=== PATIENT | male | born 1955 | race Caucasian/White ===

== ENCOUNTER 2017-03-25 20:34 | Emergency (ER) | payer MEDICARE ==
[2017-03-25] MEDS ORDERED: MORPHINE SULFATE 4 MG INJ IM ONE (20:52)
[2017-03-25] MEDS ORDERED: MORPHINE SULFATE 4 MG INJ ONE (20:55)
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
[2017-03-25 22:00] VITALS: BP 120/58; PULSE 100; O2SAT 99
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
== END 2017-03-25 22:26 | disposition home or self-care (01) ==
LOC: ED 20:34
DX: S00.03XA Contusion of scalp, initial encounter (principal); Y00.XXXA Assault by blunt object, initial encounter; W03.XXXA Other fall on same level due to collision with another person, initial encounter; R51 Headache; I10 Essential (primary) hypertension; E78.00 Pure hypercholesterolemia, unspecified
CPT/HCPCS: 70450; 71020; 96372; 99284; J2270

== ENCOUNTER 2017-03-26 12:07 | Observation (INO) | payer MEDICARE ==
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
[2017-03-26] MEDS ORDERED: VALIUM 10 MG/2 ML SYRINGE IV ONE (12:39)
[2017-03-26] MEDS ORDERED: VALIUM 10 MG/2 ML SYRINGE ONE (12:57)
[2017-03-26 13:09] LABS: BASOPHIL % 0.2 % (0.0-0.4); Eosinophil % 0.3 % (0.00-5.0); Granulocytes % 75.9 % (36.0-66.0); Lymphocytes % 15.8 % (24.0-44.0); Mean Cell Volume 86.6 fl (78-100); Mean Corpuscular Hemoglobin 28.4 pg (26-32); Mean Platelet Volume 10.1 fl (6-9.5); Monocytes % 7.8 % (0.0-12.0); Platelet Count 262 K/mm3 (150-450); Red Blood Count 4.26 M/mm3 (4.1-5.6); Red Cell Distribution Width 14.4 % (11.5-14.0); White Blood Count 8.9 K/mm3 (4.0-10.5)
[2017-03-26 13:14] LABS: COMPLETE URINE MICROSCOPIC? YES; Collection Type CATH
[2017-03-26 13:24] LABS: Bacteria RARE /HPF (NEGATIVE)
[2017-03-26 13:29] LABS: ANION GAP 12.2 MEQ/L (5-15); BLOOD UREA NITROGEN 18 mg/dL (9-20); CHLORIDE 101 mEq/L (98-107); Carbon Dioxide 29.5 mEq/L (21-32); Glucose 121 MG/DL (70-110); Potassium 3.3 mEq/L (3.5-5.1); SODIUM 139 mEq/L (136-145)
--- NOTE | 2017-03-26 14:23 | XRAY ---
Indication: Amnesia. Multiple contiguous axial images obtained through the head without contrast. Comparison: One day earlier Several images are degraded by motion artifact even with repeat CT. Again no acute intracranial hemorrhage, abnormal extra-axial fluid question, or mass effect. Fourth ventricle is midline without hydrocephalus. Beach-white matter differentiation preserved. Bony calvarium grossly intact. Visualized paranasal sinuses and mastoid air cells are pneumatized and clear. Impression: Limited exam due to motion artifact. No gross new or acute intracranial abnormalities. CTDI 61.17
[2017-03-26] MEDS ORDERED: VALIUM 10 MG/2 ML SYRINGE IV PRN ×2 (14:53→15:42)
[2017-03-26] MEDS ORDERED: Zofran 4 MG/2 ML VIAL IV PRN (15:26)
[2017-03-26] MEDS: MS CONTIN 30 MG PO SCH ×2 (16:25→21:10)
[2017-03-26] MEDS: LIORESAL 10 MG PO SCH ×2 (16:26→21:10)
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
[2017-03-26] MEDS: Requip 0.5 MG PO SCH (21:10)
[2017-03-26] MEDS: Ativan 2 MG/1 ML VIAL IV PRN (21:11)
[2017-03-26] MEDS: ZOCOR 20MG PO SCH (21:17)
[2017-03-26] MEDS ORDERED: NON-FORMULARY ITEM (Baclofen [Baclofen] 20 MG) PO SCH (22:00)
[2017-03-26] MEDS ORDERED: Ativan 2 MG/1 ML VIAL IV ONE (22:16)
[2017-03-27] MEDS: Ativan 2 MG/1 ML VIAL IV PRN (02:50)
[2017-03-27] MEDS: Sodium Chloride 0.9% W/ 20 mEq KCl/LITER 1,000 ML IV SCH ×2 (02:50→17:31)
[2017-03-27 06:19] LABS: BASOPHIL % 0.5 % (0.0-0.4); Lymphocytes % 23.7 % (24.0-44.0); Mean Cell Volume 87.2 fl (78-100); Mean Platelet Volume 10.7 fl (6-9.5); Monocytes % 10.8 % (0.0-12.0); Platelet Count 242 K/mm3 (150-450); Red Blood Count 4.06 M/mm3 (4.1-5.6); Red Cell Distribution Width 14.6 % (11.5-14.0)
[2017-03-27 06:39] LABS: Mean Corpuscular Hemoglobin 28.5 pg (26-32)
[2017-03-27 06:44] LABS: BLOOD UREA NITROGEN 13 mg/dL (9-20); CHLORIDE 104 mEq/L (98-107); Carbon Dioxide 29.6 mEq/L (21-32); Glucose 115 MG/DL (70-110); SODIUM 140 mEq/L (136-145)
[2017-03-27 06:47] LABS: Potassium 2.9 mEq/L (3.5-5.1)
[2017-03-27] MEDS: POTASSIUM CHLORIDE 20 mEq IN WATER 100ML 100 ML IV SCH ×2 (07:24→09:44)
[2017-03-27] MEDS: hydroDIURIL 25 MG PO SCH (09:25)
[2017-03-27] MEDS: THERAGRAN MULTIVITAMIN PO SCH (09:25)
[2017-03-27] MEDS: Protonix 40MG Tablet PO SCH (09:26)
[2017-03-27] MEDS: MS CONTIN 30 MG PO SCH ×3 (09:26→22:32)
[2017-03-27] MEDS: TENORMIN 50 MG PO SCH (09:26)
[2017-03-27] MEDS: LIORESAL 10 MG PO SCH ×3 (09:27→22:32)
[2017-03-27] MEDS: UNIVASC PO SCH (09:28)
[2017-03-27] MEDS ORDERED: NON-FORMULARY ITEM (Omeprazole 20 Mg [Prilosec 20 Mg] 20 MG) PO SCH (10:00)
[2017-03-27] MEDS ORDERED: [UNRECOGNIZED DRUG - OTHER] PO SCH (10:00)
[2017-03-27] MEDS ORDERED: MV MINERALS PO SCH (10:00)
[2017-03-27] MEDS ORDERED: NON-FORMULARY ITEM (Atenolol [Atenolol] 25 MG) PO SCH (10:00)
[2017-03-27] MEDS ORDERED: NON-FORMULARY ITEM (Simvastatin 40 Mg [Zocor 40 Mg] 40 MG) PO SCH (10:00)
[2017-03-27] MEDS ORDERED: LYCOPENE PO SCH (10:00)
[2017-03-27] MEDS ORDERED: GINKGO PO SCH (10:00)
[2017-03-27] MEDS: Klor Con 10 MEQ PO SCH (12:25)
[2017-03-27] MEDS: Lasix 40 MG PO SCH (12:26)
[2017-03-27] MEDS: ZOLOFT 50 MG TABLET PO SCH (12:26)
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
[2017-03-27 22:20] VITALS: O2SAT 99
[2017-03-27] MEDS: Requip 0.5 MG PO SCH (22:31)
[2017-03-27] MEDS: ZOCOR 20MG PO SCH (22:33)
[2017-03-28] MEDS: Sodium Chloride 0.9% W/ 20 mEq KCl/LITER 1,000 ML IV SCH (02:34)
[2017-03-28] MEDS: TENORMIN 50 MG PO SCH (08:08)
[2017-03-28] MEDS: hydroDIURIL 25 MG PO SCH (08:09)
[2017-03-28] MEDS: ZOLOFT 50 MG TABLET PO SCH (08:09)
[2017-03-28] MEDS: Lasix 40 MG PO SCH (08:09)
[2017-03-28] MEDS: Klor Con 10 MEQ PO SCH (08:09)
[2017-03-28 08:10] VITALS: PULSE 78
[2017-03-28] MEDS: Protonix 40MG Tablet PO SCH (08:10)
[2017-03-28] MEDS: THERAGRAN MULTIVITAMIN PO SCH (08:10)
[2017-03-28] MEDS: LIORESAL 10 MG PO SCH (08:10)
[2017-03-28] MEDS: MS CONTIN 30 MG PO SCH (08:13)
[2017-03-28] MEDS: UNIVASC PO SCH (08:13)
[2017-03-28 10:03] VITALS: BP 130/76
== END 2017-03-28 08:20 | disposition home or self-care (01) ==
LOC: ED 12:07 → ICU 14:45
PROVIDERS: ADMIT Family Medicine; ATTEND Family Medicine
DX: R41.82 Altered mental status, unspecified (principal); F15.10 Other stimulant abuse, uncomplicated; M54.9 Dorsalgia, unspecified; F19.10 Other psychoactive substance abuse, uncomplicated; I10 Essential (primary) hypertension; J44.9 Chronic obstructive pulmonary disease, unspecified; E87.6 Hypokalemia; G47.30 Sleep apnea, unspecified; K21.9 Gastro-esophageal reflux disease without esophagitis; F31.9 Bipolar disorder, unspecified; Z86.19 Personal history of other infectious and parasitic diseases; Z79.899 Other long term (current) drug therapy; Z79.891 Long term (current) use of opiate analgesic; F11.20 Opioid dependence, uncomplicated
CPT/HCPCS: 82962; 93268; 96374; 36591; 99285; 36000; 81000; 36415 ×2; 84132; 80307 ×2; 80346; 80361; 80324; 80373; 80354; 85025 ×2; 80048 ×2; 70450; G0483; 90791; G0378; J1642; J2060; J3360; J3480; Q3014; 80349; A9270-GY

== ENCOUNTER 2017-04-25 18:05 | Emergency (ER) | payer MEDICARE ==
--- NOTE | 2017-04-25 19:30 | ERPHSYRPT ---
- History of Present Illness Time Seen by Provider: 04/25/17 19:23 Patient Subjective Stated Complaint: increase in chronic back pain today. has had five back surgeries and now has a screw loose in his back. sees doctor at [facility] in [place] and is taking morphine 100 mg tid and states that is not helping. is supposed to have pain pump put in after may 13 after seeing psychiatrist. he brought his in here last night and he thinks he hurt his back today lifting on her. Triage Nursing Assessment: ambulated slowly to room seven. skin w/d, color normal, resp easy. walking with a cane. has back brace on. a/o times three. Physician History: The patient is a 61-year-old male with chronic back pain status post 5 back surgeries, now has an increase in left-sided low back pain for the last 5 hours. I saw his last night in the ER and he accompanied her. He states that he thinks when he was helping her move at home that it caused a flareup in his back pain. He takes 100 mg of morphine 3 times a day but this is not helping. He sees a pain clinic doctor at [facility] in [place] and is scheduled to have a pain pump placed on May 13. He denies any problems with urination or defecation. He walks with a cane at all times and has a back brace on. Timing/Duration: hour(s) (5) Method of Injury: unknown Quality: aching Back Pain Location: paraspinous muscles (left) Back Pain Radiation: upper legs Severity of Pain-Max: moderate Severity of Pain-Current: moderate Modifying Factors: Improves With: pain medication Associated Symptoms: denies symptoms Previous symptoms: same symptoms as today Allergies/Adverse Reactions: Penicillins Allergy (Intermediate, Verified 03/26/17 12:19) Swelling aspirin Allergy (Verified 03/26/17 12:19) Hives cephalexin monohydrate [From Keflex] Allergy (Verified 03/26/17 12:19) Swelling gabapentin [From Neurontin] Allergy (Verified 03/26/17 12:19) Hives nalbuphine HCl [From Nubain] Allergy (Verified 03/26/17 12:19) Swelling states swell, increased blood pressure HALOTHANE Allergy (Intermediate, Uncoded 03/26/17 12:19) Hives varified on 04/17/15 Pt states "gives me medically induced hepatitis B" Home Medications: Ropinirole HCl 0.5 mg [Requip 0.5 MG] 0.5 mg PO HS 02/03/15 [History] Morphine Sulfate [Morphine Sulfate ER] 100 mg PO TID 03/30/15 [History] Mv,Minerals/FA/Lycopene/Ginkgo [One Daily For Men 50+ Adv Tab] 1 tab PO DAILY [History] Atenolol 25 mg PO DAILY 05/04/16 [History] Hydrochlorothiazide 25 mg [hydroDIURIL 25 MG] 25 mg PO DAILY 05/04/16 [ History] Moexipril HCl 15 mg [Univasc 15 MG] 7.5 mg PO DAILY 05/04/16 [History] Omeprazole 20 MG [Prilosec 20 mg] 20 mg PO DAILY 05/04/16 [History] Simvastatin 40 mg [Zocor 40 mg] 40 mg PO DAILY 05/04/16 [History] Baclofen 20 mg PO TID 07/06/16 [History] Furosemide 40 mg [Lasix 40 MG] 40 mg PO DAILY 03/27/17 [History] Potassium Chloride 10 Meq Tab* [Klor Con 10 MEQ] 10 meq PO DAILY 03/27/17 [ History] Sertraline HCl 50 mg [Zoloft 50 mg Tablet] 100 mg PO DAILY 03/27/17 [History ] Hx Tetanus, Diphtheria Vaccination/Date Given: Yes Hx Influenza Vaccination/Date Given: Yes Hx Pneumococcal Vaccination/Date Given: Yes Immunizations Up to Date: Yes - Review of Systems Constitutional: No Fever, No Chills Eyes: No Symptoms Ears, Nose, & Throat: No Symptoms Respiratory: No Cough, No Dyspnea Cardiac: No Chest Pain, No Edema, No Syncope Abdominal/Gastrointestinal: No Abdominal Pain, No Nausea, No Vomiting, No Diarrhea Genitourinary Symptoms: No Dysuria Musculoskeletal: Back Pain, No Neck Pain Skin: No Rash Neurological: No Dizziness, No Focal Weakness, No Sensory Changes Psychological: No Symptoms Endocrine: No Symptoms Hematologic/Lymphatic: No Symptoms Immunological/Allergic: No Symptoms All Other Systems: Reviewed and Negative - Past Medical History Pertinent Past Medical History: Yes Neurological History: No Pertinent History ENT History: No Pertinent History Cardiac History: High Cholesterol, Hypertension Respiratory History: COPD, Sleep Apnea Endocrine Medical History: No Pertinent History Musculoskeletal History: Arthritis, Degenerative Disk Disease, Osteoarthritis GI Medical History: GERD History: No Pertinent History Psycho-Social History: Bipolar, Depression Male Reproductive Disorders: No Pertinent History Other Medical History: See history. 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 cvl port placement - Social History Smoking Status: Never smoker Exposure to second hand smoke: Yes Alcohol Use: None Drug Use: none Patient Lives Alone: No Significant Family History: no pertinent family hx - Nursing Vital Signs Nursing Vital Signs: Initial Vital Signs Temperature 99 F Temperature Source Oral Pulse Rate 80 Respiratory Rate 20 Blood Pressure [Right Arm] 153/73 Pain Intensity 9 - Physical Exam General Appearance: mild distress Eye Exam: PERRL/EOMI, eyes nml inspection Ears, Nose, Throat Exam: normal ENT inspection Neck Exam: normal inspection, non-tender, supple, full range of motion, No meningismus, No midline tenderness Respiratory Exam: normal breath sounds, lungs clear, No respiratory distress Cardiovascular Exam: regular rate/rhythm Gastrointestinal Exam: soft, No tenderness, No mass Rectal Exam: not done Back Exam: muscle spasm (lower left paraspinous) Extremity Exam: normal inspection, normal range of motion, No calf tenderness, No pedal edema Neurologic Exam: alert, oriented x 3, cooperative, 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, normal mood/affect, nml station & gait, sensation nml, No motor deficits Skin Exam: normal color, warm, dry, No rash SpO2 Interpretation: normal SpO2: 95 Oxygen Delivery: Room Air - Radiology Exams L-Spine X-ray Interpretation: Interpreted by me, Negative (DJD, intract hardware, no acute abnormality.) Ordered Tests: Active Orders 24 hr Category Date Time Status LUMBAR COMPLETE (MIN 4 VIEWS) Stat Exams 04/25/17 20:07 Taken - Progress Progress: unchanged Counseled pt/family regarding: rad results - Departure Time of Disposition: 20:39 Departure Disposition: Home Clinical Impression: Low back strain Condition: Stable Critical Care Time: No Additional Instructions: You have strange her low back on the left side. This is muscular in nature. Your L-spine x-ray was unremarkable with your hardware intact. Take Flexeril 10 mg every 8 hours as needed for pain. Follow-up on Friday if the condition does not improve significantly. Prescriptions: Cyclobenzaprine HCl [Flexeril] 10 mg PO Q8H PRN PRN #10 tablet PRN Reason: Pain
[2017-04-25 20:38] VITALS: BP 153/73; PULSE 80
[2017-04-25 20:42] VITALS: O2SAT 95
[2017-04-25] MEDS ORDERED: Cyclobenzaprine 10 MG ONE (20:43)
[2017-04-25] MEDS ORDERED: Cyclobenzaprine 10 MG PO ONE (20:44)
--- NOTE | 2017-04-25 21:48 | XRAY ---
Indication: Chronic back pain. 5 views of the lumbar spine unchanged compared to CT lumbar spine March 29, 2016. There remains osteopenia, L3-L5 fusion with intact L3-L4 spinal hardware, and multilevel degenerative spondylosis. No new/acute findings.
== END 2017-04-25 20:50 | disposition home or self-care (01) ==
LOC: ED 18:05
DX: S39.012A Strain of muscle, fascia and tendon of lower back, initial encounter (principal); Z79.891 Long term (current) use of opiate analgesic; I10 Essential (primary) hypertension; E78.00 Pure hypercholesterolemia, unspecified; J44.9 Chronic obstructive pulmonary disease, unspecified
CPT/HCPCS: 72110; 99282; A9270-GY

== ENCOUNTER 2017-05-17 01:23 | Emergency (ER) | payer MEDICARE ==
[2017-05-17] MEDS ORDERED: TORAdol 30 mg Injection IV ONE (01:53)
[2017-05-17] MEDS ORDERED: Hydromorphone 1 mg/ml Ampule IV ONE (01:53)
[2017-05-17] MEDS ORDERED: TORAdol 30 mg Injection ONE (01:57)
[2017-05-17] MEDS ORDERED: Hydromorphone 1 mg/ml Ampule ONE (01:58)
--- NOTE | 2017-05-17 01:58 | ERPHSYRPT ---
- History of Present Illness Time Seen by Provider: 05/17/17 01:54 Exam Limitations: no limitations Patient Subjective Stated Complaint: CRONIC BACK PAIN, PAIN WORSE THAN NORMAL, NO TRAUMA Triage Nursing Assessment: AOX3, VSS, NO FEVER, ABLE TO AMBULATE FROM WR TO ROOM 6 IN THE ED, PATIENT WITH HX OF CHRONIC BACK PAIN, SEEN HERE SEVERAL WEEKS AGO AFTER TRIPPING OVER BLIND DOG AT HOME. Physician History: 61 y/o male with history of chronic back pain currently on morphine 100mg Q 12 hrs comes to the ER after he tripped over his blind dog and landed on his right lower back. Pt describes the pain as sharp, constant, 10/10, worse with movement and not relieved by his pain meds. Pt denies any leg weakness or bowel and urinary incontinence. Timing/Duration: yesterday Method of Injury: fall Back Pain Location: lumbar spine Severity of Pain-Max: severe Severity of Pain-Current: severe Modifying Factors: Improves With: nothing Allergies/Adverse Reactions: Penicillins Allergy (Intermediate, Verified 03/26/17 12:19) Swelling aspirin Allergy (Verified 03/26/17 12:19) Hives cephalexin monohydrate [From Keflex] Allergy (Verified 03/26/17 12:19) Swelling gabapentin [From Neurontin] Allergy (Verified 03/26/17 12:19) Hives nalbuphine HCl [From Nubain] Allergy (Verified 03/26/17 12:19) Swelling states swell, increased blood pressure HALOTHANE Allergy (Intermediate, Uncoded 03/26/17 12:19) Hives varified on 04/17/15 Pt states "gives me medically induced hepatitis B" Home Medications: Ropinirole HCl 0.5 mg [Requip 0.5 MG] 0.5 mg PO HS 02/03/15 [History] Morphine Sulfate [Morphine Sulfate ER] 100 mg PO TID 03/30/15 [History] Mv,Minerals/FA/Lycopene/Ginkgo [One Daily For Men 50+ Adv Tab] 1 tab PO DAILY [History] Atenolol 25 mg PO DAILY 05/04/16 [History] Hydrochlorothiazide 25 mg [hydroDIURIL 25 MG] 25 mg PO DAILY 05/04/16 [ History] Moexipril HCl 15 mg [Univasc 15 MG] 7.5 mg PO DAILY 05/04/16 [History] Omeprazole 20 MG [Prilosec 20 mg] 20 mg PO DAILY 05/04/16 [History] Simvastatin 40 mg [Zocor 40 mg] 40 mg PO DAILY 05/04/16 [History] Baclofen 20 mg PO TID 07/06/16 [History] Furosemide 40 mg [Lasix 40 MG] 40 mg PO DAILY 03/27/17 [History] Potassium Chloride 10 Meq Tab* [Klor Con 10 MEQ] 10 meq PO DAILY 03/27/17 [ History] Sertraline HCl 50 mg [Zoloft 50 mg Tablet] 100 mg PO DAILY 03/27/17 [History ] Hx Tetanus, Diphtheria Vaccination/Date Given: Yes Hx Influenza Vaccination/Date Given: Yes Hx Pneumococcal Vaccination/Date Given: Yes - Review of Systems Constitutional: No Fever, No Chills Eyes: No Symptoms Ears, Nose, & Throat: No Symptoms Respiratory: No Cough, No Dyspnea Cardiac: No Chest Pain, No Edema, No Syncope Abdominal/Gastrointestinal: No Abdominal Pain, No Nausea, No Vomiting, No Diarrhea Genitourinary Symptoms: No Dysuria Musculoskeletal: Back Pain, No Neck Pain Skin: No Rash Neurological: No Dizziness, No Focal Weakness, No Sensory Changes Psychological: No Symptoms Endocrine: No Symptoms All Other Systems: Reviewed and Negative - Past Medical History Pertinent Past Medical History: Yes Neurological History: No Pertinent History ENT History: No Pertinent History Cardiac History: High Cholesterol, Hypertension Respiratory History: COPD, Sleep Apnea Endocrine Medical History: No Pertinent History Musculoskeletal History: Arthritis, Degenerative Disk Disease, Osteoarthritis GI Medical History: GERD History: No Pertinent History Psycho-Social History: Bipolar, Depression Male Reproductive Disorders: No Pertinent History Other Medical History: See history. 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 cvl port placement - Social History Smoking Status: Former smoker Exposure to second hand smoke: Yes Alcohol Use: None Drug Use: none Patient Lives Alone: No (FAMILY) Significant Family History: no pertinent family hx - Nursing Vital Signs Nursing Vital Signs: Initial Vital Signs Temperature 98.2 F Temperature Source Oral Pulse Rate 89 Respiratory Rate 12 Blood Pressure [Right Arm] 170/85 Pain Intensity 8 - Physical Exam General Appearance: mild distress, alert, anxiety Eye Exam: PERRL/EOMI, eyes nml inspection Neck Exam: normal inspection, non-tender, supple, full range of motion, No meningismus, No midline tenderness Respiratory Exam: normal breath sounds, lungs clear, No respiratory distress Cardiovascular Exam: regular rate/rhythm, normal heart sounds Gastrointestinal Exam: soft, No tenderness, No mass Back Exam: normal range of motion, muscle spasm, point tenderness Extremity Exam: normal inspection, normal range of motion, No calf tenderness, No pedal edema Neurologic Exam: alert, oriented x 3, cooperative, 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 I have advised the patient to F/U with his PCP fro any additional pain meds. - Departure Time of Disposition: 01:57 Departure Disposition: Home Clinical Impression: Back pain Qualifiers: Back pain location: low back pain Chronicity: acute Back pain laterality: bilateral Sciatica presence: without sciatica Qualified Code(s): M54.5 - Low back pain Condition: Stable Critical Care Time: No Instructions: Low Back Pain Additional Instructions: Follow up with your primary care doctor for any additional management for back pain.
[2017-05-17 02:29] VITALS: BP 150/69; PULSE 90; O2SAT 98
== END 2017-05-17 02:25 | disposition home or self-care (01) ==
LOC: ED 01:23
DX: M54.5 Low back pain (principal); Z79.891 Long term (current) use of opiate analgesic; Z79.899 Other long term (current) drug therapy; W01.0XXA Fall on same level from slipping, tripping and stumbling without subsequent striking against object, initial encounter
CPT/HCPCS: 36000; 96374; 96375; 99283; 99284; J1170; J1642; J1885

== ENCOUNTER 2017-06-23 13:09 | Emergency (ER) | payer MEDICARE ==
[2017-06-23 13:17] VITALS: O2SAT 98
[2017-06-23] MEDS ORDERED: XYLOCAINE 1% HCL 20 ML MDV IJ ONE (13:20)
[2017-06-23] MEDS ORDERED: XYLOCAINE 1% HCL 20 ML MDV ONE (13:23)
--- NOTE | 2017-06-23 13:28 | ERPHSYRPT ---
- History of Present Illness Time Seen by Provider: 06/23/17 13:20 Source: patient Patient Subjective Stated Complaint: "I was stung by a yellow jacket last friday and this morning the area really blew up red and has white spots on it.". Dr. madison Triage Nursing Assessment: Pt alert and oriented X 3, skin pwd pt has abscess noted to left forearm 11.5 cm X 9 CM warm to touch Physician History: CC: left forearm swelling Hx: 61 y/o patient of Dr Garnica was stung last week by a yellow jacket on left forearm. The area has worsened in redness, pain, fluctuance, and appears to now be abscess. Last tetanus vaccine 2 years ago. No fever or chills. No N/T/W. He drove self here. He takes pain medication thru Dr Bran and is scheduled for procedures next week. Pain in arm moderately severe. Severity of Pain-Max: moderate Severity of Pain-Current: moderate Extremities Pain Location: forearm: left Allergies/Adverse Reactions: Penicillins Allergy (Intermediate, Verified 03/26/17 12:19) Swelling aspirin Allergy (Verified 03/26/17 12:19) Hives cephalexin monohydrate [From Keflex] Allergy (Verified 03/26/17 12:19) Swelling gabapentin [From Neurontin] Allergy (Verified 03/26/17 12:19) Hives nalbuphine HCl [From Nubain] Allergy (Verified 06/23/17 13:18) Swelling states swell, increased blood pressure HALOTHANE Allergy (Intermediate, Uncoded 03/26/17 12:19) Hives varified on 04/17/15 Pt states "gives me medically induced hepatitis B" Home Medications: Ropinirole HCl 0.5 mg [Requip 0.5 MG] 0.5 mg PO HS 02/03/15 [History] Morphine Sulfate [Morphine Sulfate ER] 100 mg PO TID 03/30/15 [History] Atenolol 25 mg PO DAILY 05/04/16 [History] Hydrochlorothiazide 25 mg [hydroDIURIL 25 MG] 25 mg PO DAILY 05/04/16 [ History] Moexipril HCl 15 mg [Univasc 15 MG] 7.5 mg PO DAILY 05/04/16 [History] Omeprazole 20 MG [Prilosec 20 mg] 20 mg PO DAILY 05/04/16 [History] Simvastatin 40 mg [Zocor 40 mg] 40 mg PO DAILY 05/04/16 [History] Baclofen 20 mg PO TID 07/06/16 [History] Furosemide 40 mg [Lasix 40 MG] 40 mg PO DAILY 03/27/17 [History] Potassium Chloride 10 Meq Tab* [Klor Con 10 MEQ] 10 meq PO DAILY 03/27/17 [ History] Sertraline HCl 50 mg [Zoloft 50 mg Tablet] 100 mg PO DAILY 03/27/17 [History ] Hx Tetanus, Diphtheria Vaccination/Date Given: Yes Hx Influenza Vaccination/Date Given: Yes Hx Pneumococcal Vaccination/Date Given: Yes Immunizations Up to Date: Yes - Review of Systems Constitutional: No Fever, No Chills Respiratory: No Dyspnea Skin: Skin Lesions (left forearm infection) Neurological: No Focal Weakness, No Headache, No Parasthesia - Past Medical History Pertinent Past Medical History: Yes Neurological History: No Pertinent History ENT History: No Pertinent History Cardiac History: High Cholesterol, Hypertension Respiratory History: COPD, Sleep Apnea Endocrine Medical History: No Pertinent History Musculoskeletal History: Arthritis, Degenerative Disk Disease, Osteoarthritis GI Medical History: GERD History: No Pertinent History Psycho-Social History: Bipolar, Depression Male Reproductive Disorders: No Pertinent History Other Medical History: See history. 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 cvl port placement - Social History Smoking Status: Never smoker Exposure to second hand smoke: Yes Alcohol Use: None Drug Use: none Patient Lives Alone: No Significant Family History: no pertinent family hx - Nursing Vital Signs Nursing Vital Signs: Initial Vital Signs Temperature 97.8 F 06/23/17 13:10 Pulse Rate 112 H 06/23/17 13:10 Respiratory Rate 18 06/23/17 13:10 Blood Pressure 111/76 06/23/17 13:10 O2 Sat by Pulse Oximetry 98 06/23/17 13:10 Pain Scale Pain Intensity 5 - Physical Exam General Appearance: alert Eyes, Ears, Nose, Throat Exam: moist mucous membranes Neck Exam: supple Cardiovascular/Respiratory Exam: regular rate/rhythm Mental Status Exam: alert, oriented x 3, cooperative Skin Exam: warm, dry, other (pointing abscess left forearm. Distal hand neurovascular intact. The abscess is red, fluctuant, tender.) SpO2: 98 Oxygen Delivery: Room Air Procedures - Incision and Drainage Site: left forearm Anesthesia: 1% Lidocaine cc's of anesthesia: 5 Blade Size: scalpel I & D Procedure: betadine prep, culture obtained Results: large amount pus Progress: Tolerated well. - Course Nursing assessment & vital signs reviewed: Yes Ordered Tests: Active Orders 24 hr Category Date Time Status Wound Care STAT Care 06/23/17 13:20 Active CULTURE,WOUND Stat Lab 06/23/17 13:21 Ordered Medication Summary Discontinued Medications Generic Name Dose Route Start Last Admin Trade Name Mg PRN Reason Stop Dose Admin Lidocaine HCl 5 ml 06/23/17 13:20 06/23/17 13:25 Xylocaine 1% Hcl 20 Ml Mdv IJ 06/23/17 13:21 5 ml STAT ONE Administration Lidocaine HCl Confirm 06/23/17 13:23 Xylocaine 1% Hcl 20 Ml Mdv Administered 06/23/17 13:24 Dose 5 ml .ROUTE .STK-MED ONE - Progress Progress Note: 06/23/17 13:25 Advised wound I&D and culture. Will give Rx cleocin. Advised he call his pain specialist and let them know he has an infection as it may be prudent to postpone any elective procedures. He understands I&D and consents to proceed. Counseled pt/family regarding: diagnosis, need for follow-up - Departure Time of Disposition: 13:46 Departure Disposition: Home Clinical Impression: Abscess of left forearm Condition: Fair Critical Care Time: No Referrals: HUNG GARNICA MD [ACTIVE STAFF] - Instructions: Methicillin-Resistant Staph Infection (MRSA), Incision and Drainage of a Skin Abscess Additional Instructions: Warm compress 4 times a day. Keep wound clean. Rx cleocin. Call Dr Bran regarding infection notification. Follow up with Dr Garnica this week . Prescriptions: Clindamycin HCl 1 cap PO QID #40 capsule
[2017-06-23 14:00] VITALS: BP 118/65; PULSE 90
== END 2017-06-23 14:00 | disposition home or self-care (01) ==
LOC: ED 13:09
PROC: 0H9EXZZ Drainage of Left Lower Arm Skin, External Approach (ICD-10-PCS; principal; 2017-06-23)
DX: L02.414 Cutaneous abscess of left upper limb (principal)
CPT/HCPCS: 10060; 87070; 99283

== ENCOUNTER 2017-06-27 02:25 | Emergency (ER) | payer MEDICARE ==
[2017-06-27 02:33] VITALS: BP 146/84; O2SAT 98
[2017-06-27] MEDS ORDERED: TORAdol 30 mg Injection IM ONE (02:54)
[2017-06-27] MEDS ORDERED: BENADRYL 25 MG CAPSULE PO ONE (02:54)
[2017-06-27] MEDS ORDERED: Cyclobenzaprine 10 MG PO ONE (02:55)
[2017-06-27] MEDS ORDERED: TORAdol 30 mg Injection ONE (02:57)
[2017-06-27] MEDS ORDERED: Cyclobenzaprine 10 MG ONE (02:57)
[2017-06-27] MEDS ORDERED: BENADRYL 25 MG CAPSULE ONE (02:58)
--- NOTE | 2017-06-27 03:01 | ERPHSYRPT ---
- History of Present Illness Time Seen by Provider: 06/27/17 02:55 Source: patient Exam Limitations: no limitations Patient Subjective Stated Complaint: PT c/o pain from the lower thighs down to yung on both legs. pt states two days ago he was chasing his dog and bend over pick the dog pt tripped, fell down, and rolled twice. Triage Nursing Assessment: Pt walked into the ER with cane which pt uses on a regular bases. Alert x 3. Skin is pink warm and dry no bruises noted to stephan legs /knees. Respirations even and unlabored. Physician History: 61 y/o male comes to the ER after tripping after bending over his dogs and landing on his bilateral upper thighs. Pt describes the pain as sharp, constant , 6/10 and not relieved by tylenol and naproxen. No other injuries. Method of Injury: fell Occurred: yesterday Quality: constant Severity of Pain-Max: moderate Severity of Pain-Current: moderate Lower Extremities Pain: thigh: bilateral Modifying Factors: Improves With: nothing Associated Symptoms: none Allergies/Adverse Reactions: Penicillins Allergy (Intermediate, Verified 03/26/17 12:19) Swelling aspirin Allergy (Verified 03/26/17 12:19) Hives cephalexin monohydrate [From Keflex] Allergy (Verified 03/26/17 12:19) Swelling gabapentin [From Neurontin] Allergy (Verified 03/26/17 12:19) Hives nalbuphine HCl [From Nubain] Allergy (Verified 06/23/17 13:18) Swelling states swell, increased blood pressure HALOTHANE Allergy (Intermediate, Uncoded 03/26/17 12:19) Hives varified on 04/17/15 Pt states "gives me medically induced hepatitis B" Home Medications: Ropinirole HCl 0.5 mg [Requip 0.5 MG] 0.5 mg PO HS 02/03/15 [History] Atenolol 25 mg PO DAILY 05/04/16 [History] Hydrochlorothiazide 25 mg [hydroDIURIL 25 MG] 25 mg PO DAILY 05/04/16 [ History] Moexipril HCl 15 mg [Univasc 15 MG] 7.5 mg PO DAILY 05/04/16 [History] Omeprazole 20 MG [Prilosec 20 mg] 20 mg PO DAILY 05/04/16 [History] Simvastatin 40 mg [Zocor 40 mg] 40 mg PO DAILY 05/04/16 [History] Baclofen 20 mg PO TID 07/06/16 [History] Furosemide 40 mg [Lasix 40 MG] 40 mg PO DAILY 03/27/17 [History] Potassium Chloride 10 Meq Tab* [Klor Con 10 MEQ] 10 meq PO DAILY 03/27/17 [ History] Sertraline HCl 50 mg [Zoloft 50 mg Tablet] 100 mg PO DAILY 03/27/17 [History ] Clonidine HCl 0.1 mg PO TID 06/27/17 [History] Hx Tetanus, Diphtheria Vaccination/Date Given: Yes (2013) Hx Influenza Vaccination/Date Given: Yes Hx Pneumococcal Vaccination/Date Given: Yes Immunizations Up to Date: Yes - Review of Systems Constitutional: No Fever, No Chills Eyes: No Symptoms Ears, Nose, & Throat: No Symptoms Respiratory: No Cough, No Dyspnea Cardiac: No Chest Pain, No Edema, No Syncope Abdominal/Gastrointestinal: No Abdominal Pain, No Nausea, No Vomiting, No Diarrhea Genitourinary Symptoms: No Dysuria Musculoskeletal: Myalgias, No Back Pain, No Neck Pain Skin: No Rash Neurological: No Dizziness, No Focal Weakness, No Sensory Changes Psychological: No Symptoms Endocrine: No Symptoms All Other Systems: Reviewed and Negative - Past Medical History Pertinent Past Medical History: Yes Neurological History: No Pertinent History ENT History: No Pertinent History Cardiac History: High Cholesterol, Hypertension Respiratory History: COPD, Sleep Apnea Endocrine Medical History: No Pertinent History Musculoskeletal History: Arthritis, Degenerative Disk Disease, Osteoarthritis GI Medical History: GERD History: No Pertinent History Psycho-Social History: Bipolar, Depression Male Reproductive Disorders: No Pertinent History Other Medical History: See history. 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 cvl port placement - Social History Smoking Status: Never smoker Exposure to second hand smoke: Yes Alcohol Use: None Drug Use: none Patient Lives Alone: No Significant Family History: no pertinent family hx - Nursing Vital Signs Nursing Vital Signs: Initial Vital Signs Temperature 98.7 F 06/27/17 02:26 Pulse Rate 120 H 06/27/17 02:26 Respiratory Rate 20 06/27/17 02:26 Blood Pressure 146/84 06/27/17 02:26 O2 Sat by Pulse Oximetry 98 06/27/17 02:26 Pain Scale Pain Intensity 9 - Physical Exam General Appearance: alert Eyes, Ears, Nose, Throat Exam: moist mucous membranes Neck Exam: non-tender, supple Cardiovascular/Respiratory Exam: chest non-tender, normal breath sounds, regular rate/rhythm, no respiratory distress Gastrointestinal/Abdominal Exam: non-tender, guarding Back Exam: normal inspection, No vertebral tenderness Legs Exam: bilateral leg: soft tissue tenderness Neuro/Tendon Exam: normal sensation, normal motor functions Mental Status Exam: alert, oriented x 3, cooperative Skin Exam: normal color, warm, dry SpO2: 98 Oxygen Delivery: Room Air - Course Nursing assessment & vital signs reviewed: Yes Ordered Tests: Medication Summary Generic Name Dose Route Start Last Admin Trade Name Freq PRN Reason Stop Dose Admin Cyclobenzaprine HCl 10 mg 06/27/17 02:55 Cyclobenzaprine 10 Mg PO 06/27/17 02:56 STAT ONE Discontinued Medications Generic Name Dose Route Start Last Admin Trade Name Freq PRN Reason Stop Dose Admin Diphenhydramine HCl 25 mg 06/27/17 02:54 Benadryl 25 Mg Capsule PO 06/27/17 02:55 STAT ONE Ketorolac Tromethamine 60 mg 06/27/17 02:54 Toradol 30 Mg Injection IM 06/27/17 02:55 STAT ONE - Progress Progress: unchanged Progress Note: 06/27/17 02:58 Pt will be given a dose of toradol and flexeril for muscle pain. - Departure Time of Disposition: 02:58 Departure Disposition: Home Clinical Impression: Chronic pain syndrome Thigh pain Qualifiers: Laterality: bilateral Qualified Code(s): M79.651 - Pain in right thigh; M79.652 - Pain in left thigh Condition: Stable Critical Care Time: No Referrals: DOCTOR,NO FAMILY [Primary Care Provider] - Instructions: Prevent Falls, Leg Pain Prescriptions: Cyclobenzaprine HCl [Flexeril] 5 mg PO TID PRN #6 tablet PRN Reason: Muscle Spasms Ketorolac Tromethamine [Toradol] 10 mg PO QID PRN #20 tablet PRN Reason: Pain
[2017-06-27 03:21] VITALS: PULSE 115
== END 2017-06-27 03:21 | disposition home or self-care (01) ==
LOC: ED 02:25
DX: M79.651 Pain in right thigh (principal); M79.652 Pain in left thigh; G89.4 Chronic pain syndrome; W01.0XXA Fall on same level from slipping, tripping and stumbling without subsequent striking against object, initial encounter
CPT/HCPCS: 96372; 99284; J1885; A9270-GY

== ENCOUNTER 2017-07-26 22:18 | Emergency (ER) | payer MEDICARE, SELFPAY ==
[2017-07-26 22:35] VITALS: O2SAT 98
[2017-07-26] MEDS ORDERED: Hydromorphone 1 mg/ml Ampule IV ONE (22:36)
[2017-07-26] MEDS ORDERED: Phenergan 25 MG INJ IV ONE (22:36)
--- NOTE | 2017-07-26 22:42 | ERPHSYRPT ---
- History of Present Illness Time Seen by Provider: 07/26/17 22:33 Source: patient Exam Limitations: no limitations Patient Subjective Stated Complaint: states both knees hurting today. took ibuprofen with no help Triage Nursing Assessment: able to ambulate to room slowly. no swelling noted. small raised red area noted to right lower leg.. + pedal pulses bilaterally. Physician History: PT HAS RESTLESS LEG SYNDROME AND IT IS EXACERBATING TODAY. PT DENIES CHEST PAIN , SHORTNESS OF AIR, NAUSEA, VOMITING, DIAPHORESIS. Allergies/Adverse Reactions: Penicillins Allergy (Intermediate, Verified 07/09/17 09:36) Swelling aspirin Allergy (Verified 07/09/17 09:36) Hives cephalexin monohydrate [From Keflex] Allergy (Verified 07/09/17 09:36) Swelling gabapentin [From Neurontin] Allergy (Verified 07/09/17 09:36) Hives nalbuphine HCl [From Nubain] Allergy (Verified 07/09/17 09:36) Swelling states swell, increased blood pressure HALOTHANE Allergy (Intermediate, Uncoded 07/09/17 09:36) Hives varified on 04/17/15 Pt states "gives me medically induced hepatitis B" Home Medications: Ropinirole HCl 0.5 mg [Requip 0.5 MG] 0.5 mg PO HS 02/03/15 [History] Atenolol 25 mg PO DAILY 05/04/16 [History] Hydrochlorothiazide 25 mg [hydroDIURIL 25 MG] 25 mg PO DAILY 05/04/16 [ History] Moexipril HCl 15 mg [Univasc 15 MG] 7.5 mg PO DAILY 05/04/16 [History] Omeprazole 20 MG [Prilosec 20 mg] 20 mg PO DAILY 05/04/16 [History] Simvastatin 40 mg [Zocor 40 mg] 40 mg PO DAILY 05/04/16 [History] Baclofen 20 mg PO TID 07/06/16 [History] Furosemide 40 mg [Lasix 40 MG] 40 mg PO DAILY 03/27/17 [History] Potassium Chloride 10 Meq Tab* [Klor Con 10 MEQ] 10 meq PO DAILY 03/27/17 [ History] Sertraline HCl 50 mg [Zoloft 50 mg Tablet] 100 mg PO DAILY 03/27/17 [History ] Clonidine HCl 0.1 mg PO TID 06/27/17 [History] Hx Tetanus, Diphtheria Vaccination/Date Given: Yes (2013) Hx Influenza Vaccination/Date Given: Yes Hx Pneumococcal Vaccination/Date Given: Yes Immunizations Up to Date: Yes - Review of Systems Respiratory: No Dyspnea Cardiac: No Chest Pain Abdominal/Gastrointestinal: No Abdominal Pain, No Nausea, No Vomiting Musculoskeletal: Other (BILATERAL LEG PAIN(FROM RESTLESS LEG SYNDROME).) Endocrine: No Excessive Sweating All Other Systems: Reviewed and Negative - Past Medical History Pertinent Past Medical History: Yes Neurological History: Stroke ENT History: No Pertinent History Cardiac History: High Cholesterol, Hypertension Respiratory History: COPD, Sleep Apnea Endocrine Medical History: No Pertinent History Musculoskeletal History: Arthritis, Degenerative Disk Disease, Osteoarthritis GI Medical History: GERD History: No Pertinent History Psycho-Social History: Bipolar, Depression Male Reproductive Disorders: No Pertinent History Other Medical History: See history. 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 cvl port placement - Social History Smoking Status: Never smoker Exposure to second hand smoke: Yes Alcohol Use: None Drug Use: none Patient Lives Alone: No Significant Family History: no pertinent family hx - Nursing Vital Signs Nursing Vital Signs: Initial Vital Signs Temperature 98.0 F 07/26/17 22:21 Pulse Rate 79 07/26/17 22:21 Respiratory Rate 20 07/26/17 22:21 Blood Pressure 150/78 07/26/17 22:21 O2 Sat by Pulse Oximetry 98 07/26/17 22:21 Pain Scale Pain Intensity 8 - Physical Exam General Appearance: alert Eye Exam: PERRL/EOMI Ears, Nose, Throat Exam: TMs normal, pharynx normal, moist mucous membranes Neck Exam: normal inspection Respiratory Exam: lungs clear Cardiovascular Exam: normal heart sounds Gastrointestinal/Abdomen Exam: soft, normal bowel sounds Back Exam: normal range of motion Extremity Exam: normal range of motion, No pedal edema Neurologic Exam: alert, cooperative Skin Exam: warm, dry SpO2 Interpretation: normal SpO2: 98 Oxygen Delivery: Room Air - Course Nursing assessment & vital signs reviewed: Yes Ordered Tests: Medication Summary Discontinued Medications Generic Name Dose Route Start Last Admin Trade Name Mg PRN Reason Stop Dose Admin Hydromorphone HCl 2 mg 07/26/17 22:36 Hydromorphone 1 Mg/Ml Ampule IV 07/26/17 22:37 STAT ONE Promethazine HCl 12.5 mg 07/26/17 22:36 Phenergan 25 Mg Inj IV 07/26/17 22:37 STAT ONE - Departure Time of Disposition: 22:42 Departure Disposition: Home Clinical Impression: RESTLESS LEG SYNDROME - EXACERBATION Condition: Stable Critical Care Time: No Referrals: HUNG GARNICA MD [Primary Care Provider] - Instructions: Leg Pain Additional Instructions: FOLLOW UP WITH PRIVATE DOCTOR TOMORROW.
[2017-07-26] MEDS ORDERED: Phenergan 25 MG INJ ONE (22:51)
[2017-07-26] MEDS ORDERED: Hydromorphone 1 mg/ml Ampule ONE (22:52)
[2017-07-26 23:29] VITALS: BP 131/70; PULSE 76
== END 2017-07-26 23:29 | disposition home or self-care (01) ==
LOC: ED 22:18
DX: G25.81 Restless legs syndrome (principal); Z79.899 Other long term (current) drug therapy; E78.00 Pure hypercholesterolemia, unspecified; I10 Essential (primary) hypertension
CPT/HCPCS: 96374; 96375; 99284; J1170; J1642; J2550

== ENCOUNTER 2017-07-30 16:21 | Emergency (ER) | payer MEDICARE ==
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
[2017-07-30 17:02] LABS: BASOPHIL % 0.2 % (0.0-0.4); Eosinophil % 0.8 % (0.00-5.0); Granulocytes % 79.8 % (36.0-66.0); Lymphocytes % 13.3 % (24.0-44.0); Mean Cell Volume 86.4 fl (78-100); Mean Corpuscular Hemoglobin 28.5 pg (26-32); Mean Platelet Volume 10.3 fl (6-9.5); Monocytes % 5.9 % (0.0-12.0); Platelet Count 289 K/mm3 (150-450); Red Blood Count 4.91 M/mm3 (4.1-5.6); Red Cell Distribution Width 13.8 % (11.5-14.0); White Blood Count 9.6 K/mm3 (4.0-10.5)
[2017-07-30 17:32] LABS: ALKALINE PHOSPHATASE 176 U/L (46-116); ANION GAP 13.9 MEQ/L (5-15); BLOOD UREA NITROGEN 18 mg/dL (9-20); CHLORIDE 100 mEq/L (98-107); Carbon Dioxide 29.2 mEq/L (21-32); ETHYL ALCOHOL < 0.010 % (0.00-0.01); Glucose 121 MG/DL (70-110); Potassium 3.9 mEq/L (3.5-5.1); SGOT/AST 63 U/L (15-37); SGPT/ALT 71 U/L (12-78); SODIUM 139 mEq/L (136-145)
[2017-07-30 17:35] LABS: ADD URINE CULTURE? NO (NO); Bilirubin NEGATIVE (NEGATIVE); Blood NEGATIVE Ery/ul (0-5); COMPLETE URINE MICROSCOPIC? NO; Collection Type CLEAN CATCH; Glucose NEGATIVE (NEGATIVE); Leukocyte Esterase NEGATIVE (NEGATIVE)
[2017-07-30 17:37] LABS: ACETAMINOPHEN < 2.0 ug/ml (10-30)
[2017-07-30] MEDS ORDERED: Hydromorphone 1 mg/ml Ampule IV ONE (21:08)
[2017-07-30] MEDS ORDERED: Phenergan 25 MG INJ IV ONE (21:08)
[2017-07-30 21:20] VITALS: BP 167/85; PULSE 84; O2SAT 97
[2017-07-30] MEDS ORDERED: Hydromorphone 1 mg/ml Ampule ONE (21:21)
[2017-07-30] MEDS ORDERED: Phenergan 25 MG INJ ONE (21:22)
== END 2017-07-31 00:15 | disposition short-term general hospital (02) ==
LOC: ED 16:21
DX: R45.851 Suicidal ideations (principal); X83.8XXA Intentional self-harm by other specified means, initial encounter
CPT/HCPCS: 36000; 36415; 80053; 80307; 81002; 85025; 90791; 93005; 99285; G0481; J1170; J2550; Q3014

== ENCOUNTER 2017-08-14 08:25 | Emergency (ER) | payer MEDICARE, SELFPAY ==
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
[2017-08-14 09:11] LABS: Mean Cell Volume 87.4 fl (78-100); Mean Platelet Volume 10.1 fl (6-9.5); Platelet Count 182 K/mm3 (150-450); Red Cell Distribution Width 13.8 % (11.5-14.0); White Blood Count 6.8 K/mm3 (4.0-10.5)
--- NOTE | 2017-08-14 09:12 | XRAY ---
Indication: Chest pain, cough, and vomiting. Comparison: March 25, 2017. PA/lateral chest remains hyperinflated and clear. Heart and mediastinal structures are stable and within normal limits again with left-sided Port-A-Cath. Bony thorax intact again with mild osteopenia and degenerative changes. Impression: Stable nonacute hyperinflated chest.
[2017-08-14 09:13] LABS: Mean Corpuscular Hemoglobin 28.3 pg (26-32)
[2017-08-14 09:26] LABS: INR 0.96 (0.8-3.0); PROTIME 10.7 SECONDS (8.83-12.87)
[2017-08-14 09:28] LABS: PTT 33.8 SECONDS (24.1-36.1)
[2017-08-14] MEDS ORDERED: BENADRYL 50 MG/ML IV ONE (09:30)
[2017-08-14] MEDS ORDERED: MORPHINE SULFATE 4 MG INJ IV ONE ×2 (09:30→11:05)
[2017-08-14] MEDS ORDERED: MORPHINE SULFATE 4 MG INJ ONE ×2 (09:30→11:06)
[2017-08-14] MEDS ORDERED: BENADRYL 50 MG/ML ONE (09:32)
[2017-08-14 09:35] LABS: ALBUMIN 3.7 g/dL (3.4-5.0); ALKALINE PHOSPHATASE 219 U/L (46-116); ANION GAP 10.6 MEQ/L (5-15); BLOOD UREA NITROGEN 28 mg/dL (9-20); CHLORIDE 98 mEq/L (98-107); Carbon Dioxide 34.9 mEq/L (21-32); Glucose 132 MG/DL (70-110); Potassium 3.6 mEq/L (3.5-5.1); SGOT/AST 68 U/L (15-37); SGPT/ALT 82 U/L (12-78); SODIUM 140 mEq/L (136-145); Total Protein 8.1 gm/dL (6.4-8.2)
[2017-08-14 09:45] LABS: ANISOCYTOSIS 1+; Platelet Estimate NORMAL (NORMAL); Poikilocytosis 1+; Total Cells Counted 100
--- NOTE | 2017-08-14 11:03 | XRAY ---
Indication: Chest pain and hemoptysis. Elevated d-dimer. Multiple contiguous axial images obtained through the chest using 80 cc Isovue 370 contrast and PE protocol. Comparison: October 29, 2015. There is satisfactory opacification of the pulmonary arteries to include the lobar and segmental branches. No filling defect or pulmonary embolus. Heart is not enlarged. Aorta is normal in course and caliber. New left-sided Port-A-Cath with the tip in the SVC. No pathologic mediastinal/hilar lymphadenopathy. Examination of the lung parenchyma demonstrates minimal bilateral dependent atelectasis. Stable 7 mm right upper lobe peripheral noncalcified nodularity (image 35, series 4). No new pulmonary mass, infiltrates, or effusion. Bony thorax intact again with flowing osteophytes throughout the spine. Limited upper abdomen again demonstrates fatty liver and 16.4 cm splenomegaly. Impression: 1. Again negative for pulmonary embolus. No new/acute cardiopulmonary abnormalities. 2. Stable right upper lobe subcentimeter noncalcified nodularity. 3. Stable fatty liver and splenomegaly. CT DI 20.23
[2017-08-14 12:40] VITALS: BP 146/90; PULSE 87; O2SAT 97
== END 2017-08-14 12:53 | disposition home or self-care (01) ==
LOC: ED 08:25
DX: R07.89 Other chest pain (principal); G89.4 Chronic pain syndrome; R04.2 Hemoptysis; E78.00 Pure hypercholesterolemia, unspecified; I10 Essential (primary) hypertension; J44.9 Chronic obstructive pulmonary disease, unspecified; Z86.72 Personal history of thrombophlebitis; Z86.73 Personal history of transient ischemic attack (TIA), and cerebral infarction without residual deficits
CPT/HCPCS: 36000; 36415; 71020; 71260; 80053; 80307; 82550; 84484; 85025; 85379; 85610; 85730; 93005; 93041; 96374; 96375; 96376; 99284; 99285; J1200; J1642; J2270

== ENCOUNTER 2017-08-17 19:50 | Emergency (ER) | payer MEDICARE, SELFPAY ==
[2017-08-17] MEDS ORDERED: TYLENOL 325 MG PO ONE (20:17)
[2017-08-17] MEDS ORDERED: Pepcid 20 MG VIAL IV ONE ×2 (20:17→20:26)
[2017-08-17] MEDS ORDERED: Zofran 4 MG/2 ML VIAL IV ONE (20:17)
[2017-08-17] MEDS ORDERED: MORPHINE SULFATE 4 MG INJ IV ONE (20:17)
--- NOTE | 2017-08-17 20:17 | ERPHSYRPT ---
- History of Present Illness Time Seen by Provider: 08/17/17 20:12 Historian: patient Exam Limitations: no limitations Patient Subjective Stated Complaint: Pt sts pain in chest since . Pt sts was seen Friday here because of chest pain and coughing up blood. Pt sts pain has continued, worsening in nature. Describes substernal non-radiating pain. Sts when breathes he feels like he is being poked with sharp knives. Coughing and movement also exacerbate pain. Rates pain 8/10, 9/10 with movement or deep breathing. Pt sts vomited blood x 2 today. Has appt with PCP tomorrow at 1415. Triage Nursing Assessment: Pt alert, oriented, answers all questions appropriately. Skin pink, warm, dry. Resps non-labored. Pt ambulatory to tx room , steady gait noted. EKG at triage sinus rhythm. Physician History: The patient is a 61-year-old male complaining of pleuritic chest pain that has worsened since . It hurts for him to move his chest especially breathing deeply. He said he was seen in the ER on Friday or vomiting some blood. He is here for pain relief for his chest pain. He denies shortness of breath. His past medical history is significant for drug abuse, hypertension, GERD, and high cholesterol. Timing/Duration: day(s) (4) Activities at Onset: none Quality: sharpness Location: substernal Chest Pain Radiation: no radiation Severity of Pain-Max: moderate Severity of Pain-Current: moderate Modifying Factors: Improves With: breathing, movement Associated Symptoms: hurts to breathe, No fever Nitro Today/Relief: no nitro taken today Aspirin Treatment Today: no aspirin today Allergies/Adverse Reactions: Penicillins Allergy (Intermediate, Verified 08/17/17 20:03) Swelling aspirin Allergy (Verified 08/17/17 20:03) Hives cephalexin monohydrate [From Keflex] Allergy (Verified 08/17/17 20:03) Swelling gabapentin [From Neurontin] Allergy (Verified 08/17/17 20:03) Hives ketorolac [From Toradol] Allergy (Verified 08/17/17 20:03) nalbuphine HCl [From Nubain] Allergy (Verified 08/17/17 20:03) Swelling states swell, increased blood pressure HALOTHANE Allergy (Intermediate, Uncoded 08/17/17 20:03) Hives varified on 04/17/15 Pt states "gives me medically induced hepatitis B" Home Medications: Ropinirole HCl 0.5 mg [Requip 0.5 MG] 0.5 mg PO HS 02/03/15 [History] Atenolol 25 mg PO DAILY 05/04/16 [History] Hydrochlorothiazide 25 mg [hydroDIURIL 25 MG] 25 mg PO DAILY 05/04/16 [ History] Moexipril HCl 15 mg [Univasc 15 MG] 7.5 mg PO DAILY 05/04/16 [History] Omeprazole 20 MG [Prilosec 20 mg] 20 mg PO DAILY 05/04/16 [History] Simvastatin 40 mg [Zocor 40 mg] 40 mg PO DAILY 05/04/16 [History] Baclofen 20 mg PO TID 07/06/16 [History] Furosemide 40 mg [Lasix 40 MG] 40 mg PO DAILY 03/27/17 [History] Potassium Chloride 10 Meq Tab* [Klor Con 10 MEQ] 10 meq PO DAILY 03/27/17 [ History] Sertraline HCl 50 mg [Zoloft 50 mg Tablet] 100 mg PO DAILY 03/27/17 [History ] Clonidine HCl 0.1 mg PO TID 06/27/17 [History] Zolpidem Tartrate [Ambien] 5 mg PO HS 07/26/17 [History] Hx Tetanus, Diphtheria Vaccination/Date Given: No Hx Influenza Vaccination/Date Given: No Hx Pneumococcal Vaccination/Date Given: No Immunizations Up to Date: Yes - Review of Systems Constitutional: No Fever, No Chills Eyes: No Symptoms Ears, Nose, & Throat: No Symptoms Respiratory: No Cough, No Dyspnea Cardiac: Chest Pain Abdominal/Gastrointestinal: No Abdominal Pain, No Nausea, No Vomiting, No Diarrhea Genitourinary Symptoms: No Dysuria Musculoskeletal: No Back Pain, No Neck Pain Skin: No Rash Neurological: No Dizziness, No Focal Weakness, No Sensory Changes Psychological: No Symptoms Endocrine: No Symptoms Hematologic/Lymphatic: No Symptoms Immunological/Allergic: No Symptoms All Other Systems: Reviewed and Negative - Past Medical History Pertinent Past Medical History: Yes Neurological History: Stroke ENT History: No Pertinent History Cardiac History: High Cholesterol, Hypertension Respiratory History: COPD, Sleep Apnea Endocrine Medical History: No Pertinent History Musculoskeletal History: Arthritis, Degenerative Disk Disease, Osteoarthritis GI Medical History: GERD History: No Pertinent History Psycho-Social History: Bipolar, Depression Male Reproductive Disorders: No Pertinent History Other Medical History: 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 Stroke. Thrombophlebitis - Past Surgical History Past Surgical History: Yes Neuro Surgical History: No Pertinent History Cardiac: Vascular Surgery Respiratory: No Pertinent History Gastrointestinal: Appendectomy Genitourinary: No Pertinent History Musculoskeletal: Orthopedic Surgery Male Surgical History: No Pertinent History Other Surgical History: MULTI BACK SURG, left knee reconstruction. cvl port placement - Social History Smoking Status: Never smoker Exposure to second hand smoke: No Alcohol Use: None Drug Use: marijuana, other Patient Lives Alone: No Significant Family History: no pertinent family hx - Nursing Vital Signs Nursing Vital Signs: Initial Vital Signs Temperature 98.1 F 08/17/17 19:54 Pulse Rate 84 08/17/17 19:54 Respiratory Rate 20 08/17/17 19:54 Blood Pressure 142/76 08/17/17 19:54 O2 Sat by Pulse Oximetry 98 08/17/17 19:54 Pain Scale Pain Intensity 9 - Physical Exam General Appearance: no apparent distress, alert Eye Exam: PERRL/EOMI, eyes nml inspection Ears, Nose, Throat Exam: moist mucous membranes, other (very poor dentition) Neck Exam: normal inspection, non-tender, supple, full range of motion Respiratory Exam: chest tenderness (point tenderness in left upper anterior chest. Reproduces pt's chest pain) Cardiovascular Exam: regular rate/rhythm, normal heart sounds Gastrointestinal/Abdomen Exam: soft, No tenderness, No mass Rectal Exam: not done Back Exam: normal inspection, No CVA tenderness, No vertebral tenderness Extremity Exam: normal inspection, normal range of motion Neurologic Exam: alert, oriented x 3, cooperative, normal mood/affect, sensation nml, No motor deficits Skin Exam: normal color, warm, dry SpO2 Interpretation: normal SpO2: 98 Oxygen Delivery: Room Air - Course EKG Interpreted by Me: RATE, NORMAL AXIS, NORMAL INTERVALS, NORMAL QRS, NORMAL ST-T - Radiology Exams Chest X-ray Interpretation: Interpreted by me, Negative (comp cxr 08/14/17.), Other ( central port in place.) Ordered Tests: Active Orders 24 hr Category Date Time Status EKG-ER Only STAT Care 08/17/17 20:17 Active IV Insertion STAT Care 08/17/17 20:17 Active CHEST 2 VIEWS (PA AND LAT) Stat Exams 08/17/17 20:17 Taken CBC W DIFF Stat Lab 08/17/17 20:35 Completed CMP Stat Lab 08/17/17 20:35 Completed TROPONIN Q3H Lab 08/17/17 20:35 Completed TROPONIN Q3H Lab 08/17/17 23:30 Ordered TROPONIN Q3H Lab 08/18/17 02:30 Ordered TROPONIN Q3H Lab 08/18/17 05:30 Ordered TROPONIN Q3H Lab 08/18/17 08:30 Ordered Medication Summary Discontinued Medications Generic Name Dose Route Start Last Admin Trade Name Freq PRN Reason Stop Dose Admin Acetaminophen 975 mg 08/17/17 20:17 08/17/17 20:30 Tylenol 325 Mg PO 08/17/17 20:18 975 mg STAT ONE Administration Acetaminophen Confirm 08/17/17 20:26 Tylenol 325 Mg Administered 08/17/17 20:27 Dose 975 mg .ROUTE .STK-MED ONE Famotidine 20 mg 08/17/17 20:17 08/17/17 20:30 Pepcid 20 Mg Vial IV 08/17/17 20:18 20 mg STAT ONE Administration Famotidine Confirm 08/17/17 20:26 Pepcid 20 Mg Vial Administered 08/17/17 20:27 Dose 20 mg IV .STK-MED ONE Morphine Sulfate 4 mg 08/17/17 20:17 08/17/17 20:30 Morphine Sulfate 4 Mg Inj IV 08/17/17 20:18 4 mg STAT ONE Administration Morphine Sulfate Confirm 08/17/17 20:26 Morphine Sulfate 4 Mg Inj Administered 08/17/17 20:27 Dose 4 mg .ROUTE .STK-MED ONE Ondansetron HCl 4 mg 08/17/17 20:17 08/17/17 20:31 Zofran 4 Mg/2 Ml Vial IV 08/17/17 20:18 4 mg STAT ONE Administration Ondansetron HCl Confirm 08/17/17 20:26 Zofran 4 Mg/2 Ml Vial Administered 08/17/17 20:27 Dose 4 mg .ROUTE .STK-MED ONE Lab/Rad Data: Laboratory Result Diagrams 08/17/17 20:35 08/17/17 20:35 Laboratory Results 08/17/17 08/17/17 08/17/17 Range/Units 20:35 20:35 20:35 WBC 9.0 (4.0-10.5) K/mm3 RBC 4.31 (4.1-5.6) M/mm3 Hgb 12.3 L (12.5-18.0) gm/dl Hct 37.4 L (42-50) % MCV 86.8 (78-100) fl MCH 28.5 (26-32) pg MCHC 32.9 (32-36) g/dl RDW 14.0 (11.5-14.0) % Plt Count 173 (150-450) K/mm3 MPV 10.2 H (6-9.5) fl Gran % 77.3 H (36.0-66.0) % Lymphocytes % 13.3 L (24.0-44.0) % Monocytes % 7.0 (0.0-12.0) % Eosinophils % 2.1 (0.00-5.0) % Basophils % 0.3 (0.0-0.4) % Basophils # 0.03 (0-0.4) Sodium 137 (136-145) mEq/L Potassium 3.7 (3.5-5.1) mEq/L Chloride 99 (98-107) mEq/L Carbon Dioxide 30.0 (21-32) mEq/L Anion Gap 12.1 (5-15) MEQ/L BUN 14 (9-20) mg/dL Creatinine 0.83 (0.55-1.30) mg/dl Estimated GFR > 60 ML/MIN Glucose 121 H (70-110) MG/DL Calcium 9.1 (8.5-10.1) mg/dL Total Bilirubin 0.30 (0.2-1.0) mg/dL AST 81 H (15-37) U/L ALT 104 H (12-78) U/L Alkaline Phosphatase 268 H (46-116) U/L Troponin I < 0.017 (0.000-0.056) ng/ml Serum Total Protein 8.2 (6.4-8.2) gm/dL Albumin 3.4 (3.4-5.0) g/dL - Progress Progress: improved Air Movement: good Counseled pt/family regarding: lab results, diagnosis, rad results - Departure Time of Disposition: 21:35 Departure Disposition: Home Clinical Impression: Musculoskeletal chest pain Condition: Stable Critical Care Time: No Referrals: HUNG GARNICA MD [Primary Care Provider] - Additional Instructions: You had musculoskeletal chest pain. You were given morphine 4 mg, Zofran 4 mg, motor the 20 mg by IV and Tylenol 975 mg orally in the ER. Continue to take Tylenol as needed. Follow up tomorrow if no improvement.
[2017-08-17] MEDS ORDERED: MORPHINE SULFATE 4 MG INJ ONE (20:26)
[2017-08-17] MEDS ORDERED: TYLENOL 325 MG ONE (20:26)
[2017-08-17] MEDS ORDERED: Zofran 4 MG/2 ML VIAL ONE (20:26)
[2017-08-17 20:41] LABS: BASOPHIL % 0.3 % (0.0-0.4); Eosinophil % 2.1 % (0.00-5.0); Granulocytes % 77.3 % (36.0-66.0); Lymphocytes % 13.3 % (24.0-44.0); Mean Cell Volume 86.8 fl (78-100); Mean Corpuscular Hemoglobin 28.5 pg (26-32); Mean Platelet Volume 10.2 fl (6-9.5); Platelet Count 173 K/mm3 (150-450); Red Blood Count 4.31 M/mm3 (4.1-5.6)
[2017-08-17 21:17] LABS: ALBUMIN 3.4 g/dL (3.4-5.0); ALKALINE PHOSPHATASE 268 U/L (46-116); ANION GAP 12.1 MEQ/L (5-15); BLOOD UREA NITROGEN 14 mg/dL (9-20); CHLORIDE 99 mEq/L (98-107); Glucose 121 MG/DL (70-110); Potassium 3.7 mEq/L (3.5-5.1); SGOT/AST 81 U/L (15-37); SGPT/ALT 104 U/L (12-78); SODIUM 137 mEq/L (136-145); Total Protein 8.2 gm/dL (6.4-8.2)
[2017-08-17 21:37] VITALS: PULSE 80
[2017-08-17 21:50] VITALS: BP 132/75; O2SAT 96
--- NOTE | 2017-08-18 08:41 | XRAY ---
Indication: Chest pain. Comparison: August 14, 2017. PA/lateral chest unchanged again hyperinflated and clear with left-sided Port-A-Cath. Heart is not enlarged. No new/acute findings.
== END 2017-08-17 21:50 | disposition home or self-care (01) ==
LOC: ED 19:50
DX: R07.89 Other chest pain (principal); R07.81 Pleurodynia; I10 Essential (primary) hypertension; Z79.899 Other long term (current) drug therapy; E78.00 Pure hypercholesterolemia, unspecified; J44.9 Chronic obstructive pulmonary disease, unspecified
CPT/HCPCS: 36000; 36415; 71020; 80053; 84484; 85025; 93005; 96374; 96375; 99284; J1642; J2270; J2405; A9270-GY

== ENCOUNTER 2017-08-21 23:34 | Emergency (ER) | payer MEDICARE, SELFPAY ==
[2017-08-22] VITALS: O2SAT 96
--- NOTE | 2017-08-22 00:05 | ERPHSYRPT ---
- History of Present Illness Time Seen by Provider: 08/21/17 23:58 Historian: patient Exam Limitations: no limitations Physician History: Patient is a 61-year-old male complaining of left-sided musculoskeletal chest pain that hurts worse when he takes a deep breath or moves. This has been going on for more than a week. I saw the patient on 08/17/2017 for the same complaint. At that time he was given 4 mg of morphine with complete relief. At that visit the chest pain was reproducible with palpation to the left side of the sternum. He was to see his [facility] doctor today but that did not occur. He now is to see his primary care doctor on Friday at 3:15. He took ibuprofen 400 mg 9 hours ago. He did this even though he tells me he is allergic to ibuprofen. He has not taken Tylenol. His past medical history is significant for hypertension, GERD, high cholesterol, drug abuse. Tonight the patient states he would like to avoid the extensive workup that was done just a few days ago. He would like some pain relief. Timing/Duration: week(s) (1), gradual onset, worse Activities at Onset: activity Quality: sharpness Location: substernal Chest Pain Radiation: no radiation Severity of Pain-Max: moderate Severity of Pain-Current: moderate Modifying Factors: Improves With: breathing (worse), movement (worse) Associated Symptoms: denies symptoms Prior Chest Pain/Cardiac Workup: recently seen/treated Aspirin Treatment Today: no aspirin today Allergies/Adverse Reactions: Penicillins Allergy (Intermediate, Verified 08/17/17 20:03) Swelling aspirin Allergy (Verified 08/17/17 20:03) Hives cephalexin monohydrate [From Keflex] Allergy (Verified 08/17/17 20:03) Swelling gabapentin [From Neurontin] Allergy (Verified 08/17/17 20:03) Hives ketorolac [From Toradol] Allergy (Verified 08/17/17 20:03) nalbuphine HCl [From Nubain] Allergy (Verified 08/17/17 20:03) Swelling states swell, increased blood pressure HALOTHANE Allergy (Intermediate, Uncoded 08/17/17 20:03) Hives varified on 04/17/15 Pt states "gives me medically induced hepatitis B" Home Medications: Ropinirole HCl 0.5 mg [Requip 0.5 MG] 0.5 mg PO HS 02/03/15 [History] Atenolol 25 mg PO DAILY 05/04/16 [History] Hydrochlorothiazide 25 mg [hydroDIURIL 25 MG] 25 mg PO DAILY 05/04/16 [ History] Moexipril HCl 15 mg [Univasc 15 MG] 7.5 mg PO DAILY 05/04/16 [History] Omeprazole 20 MG [Prilosec 20 mg] 20 mg PO DAILY 05/04/16 [History] Simvastatin 40 mg [Zocor 40 mg] 40 mg PO DAILY 05/04/16 [History] Baclofen 20 mg PO TID 07/06/16 [History] Furosemide 40 mg [Lasix 40 MG] 40 mg PO DAILY 03/27/17 [History] Potassium Chloride 10 Meq Tab* [Klor Con 10 MEQ] 10 meq PO DAILY 03/27/17 [ History] Sertraline HCl 50 mg [Zoloft 50 mg Tablet] 100 mg PO DAILY 03/27/17 [History ] Clonidine HCl 0.1 mg PO TID 06/27/17 [History] Zolpidem Tartrate [Ambien] 5 mg PO HS 07/26/17 [History] Hx Tetanus, Diphtheria Vaccination/Date Given: No Hx Influenza Vaccination/Date Given: No Hx Pneumococcal Vaccination/Date Given: No - Review of Systems Constitutional: No Fever, No Chills Eyes: No Symptoms Ears, Nose, & Throat: No Symptoms Respiratory: No Cough, No Dyspnea Cardiac: Chest Pain Abdominal/Gastrointestinal: No Abdominal Pain, No Nausea, No Vomiting, No Diarrhea Genitourinary Symptoms: No Dysuria Musculoskeletal: No Back Pain, No Neck Pain Skin: No Rash Neurological: No Dizziness, No Focal Weakness, No Sensory Changes Psychological: No Symptoms Endocrine: No Symptoms Hematologic/Lymphatic: No Symptoms Immunological/Allergic: No Symptoms All Other Systems: Reviewed and Negative - Past Medical History Pertinent Past Medical History: Yes Neurological History: Stroke ENT History: No Pertinent History Cardiac History: High Cholesterol, Hypertension Respiratory History: COPD, Sleep Apnea Endocrine Medical History: No Pertinent History Musculoskeletal History: Arthritis, Degenerative Disk Disease, Osteoarthritis GI Medical History: GERD History: No Pertinent History Psycho-Social History: Bipolar, Depression Male Reproductive Disorders: No Pertinent History Other Medical History: 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 Stroke. Thrombophlebitis - Past Surgical History Past Surgical History: Yes Neuro Surgical History: No Pertinent History Cardiac: Vascular Surgery Respiratory: No Pertinent History Gastrointestinal: Appendectomy Genitourinary: No Pertinent History Musculoskeletal: Orthopedic Surgery Male Surgical History: No Pertinent History Other Surgical History: MULTI BACK SURG, left knee reconstruction. cvl port placement - Social History Smoking Status: Never smoker Exposure to second hand smoke: No Alcohol Use: None Drug Use: marijuana, other Patient Lives Alone: No Significant Family History: no pertinent family hx - Physical Exam General Appearance: no apparent distress, alert Eye Exam: PERRL/EOMI, eyes nml inspection Ears, Nose, Throat Exam: normal ENT inspection, moist mucous membranes Neck Exam: normal inspection, non-tender, supple, full range of motion Respiratory Exam: normal breath sounds, chest tenderness (reproduces complaint with palpation to left of mid sternum.), lungs clear, No respiratory distress Cardiovascular Exam: regular rate/rhythm, normal heart sounds Gastrointestinal/Abdomen Exam: soft, No tenderness, No mass Rectal Exam: not done Back Exam: normal inspection, No CVA tenderness, No vertebral tenderness Extremity Exam: normal inspection, normal range of motion Neurologic Exam: alert, oriented x 3, cooperative, normal mood/affect, sensation nml, No motor deficits Skin Exam: normal color, warm, dry SpO2 Interpretation: normal - Course EKG Interpreted by Me: RATE, Sinus Rhythm, NORMAL AXIS, NORMAL INTERVALS, NORMAL QRS, NORMAL ST-T, Other (no change compared to EKG 08/17/17.) Ordered Tests: Active Orders 24 hr Category Date Time Status Horse Identifier STAT Care 08/21/17 23:53 Active EKG-ER Only STAT Care 08/21/17 23:53 Active IV Insertion STAT Care 08/21/17 23:53 Active - Progress Progress: improved Air Movement: good Progress Note: 08/22/17 00:12 The patient declined further workup. Instead he would like to have pain relief. He was given ibuprofen 800 mg orally and morphine 2 mg IV. 08/22/17 00:12 Blood Culture(s) Obtained: No Antibiotics given: No Counseled pt/family regarding: diagnosis - Departure Time of Disposition: 00:13 Departure Disposition: Home Clinical Impression: Musculoskeletal chest pain, Drug-seeking behavior Condition: Stable Critical Care Time: No Referrals: HUNG GARNICA MD [Primary Care Provider] - Additional Instructions: You once again have musculoskeletal chest pain. You were given morphine 2 mg by IV in the ER. You're also given ibuprofen 800 mg orally in the ER. You told me that you take ibuprofen at home and your last dose was 9 hours ago of 400 mg. Follow-up as scheduled on Friday at 3:15 with your local doctor.
[2017-08-22] MEDS ORDERED: MORPHINE SULFATE 2 MG INJ IM ONE (00:13)
[2017-08-22] MEDS ORDERED: MOTRIN 600 MG PO ONE (00:14)
[2017-08-22] MEDS ORDERED: MOTRIN 600 MG ONE (00:25)
[2017-08-22] MEDS ORDERED: MORPHINE SULFATE 2 MG INJ ONE (00:25)
[2017-08-22] MEDS ORDERED: MORPHINE SULFATE 2 MG INJ IV ONE (00:29)
[2017-08-22 00:32] VITALS: BP 159/89; PULSE 108
== END 2017-08-22 00:48 | disposition home or self-care (01) ==
LOC: ED 23:34
DX: R07.89 Other chest pain (principal); Z76.5 Malingerer [conscious simulation]; I10 Essential (primary) hypertension; E78.00 Pure hypercholesterolemia, unspecified; Z79.899 Other long term (current) drug therapy
CPT/HCPCS: 36000; 93005; 93041; 96374; 99284; J1642; J2270; A9270-GY

== ENCOUNTER 2017-08-30 02:10 | Emergency (ER) | payer MEDICARE, SELFPAY ==
[2017-08-30 02:21] VITALS: BP 148/90; PULSE 80; O2SAT 98
[2017-08-30] MEDS ORDERED: MOTRIN 600 MG PO ONE (02:27)
[2017-08-30] MEDS ORDERED: Vistaril 50 MG/ML IM ONE ×2 (02:27→02:30)
[2017-08-30] MEDS ORDERED: MOTRIN 600 MG ONE (02:30)
--- NOTE | 2017-08-30 02:34 | ERPHSYRPT ---
- History of Present Illness Time Seen by Provider: 08/30/17 02:17 Source: patient Physician History: CC: back pain Hx: 61 y/o patient of Dr Garnica with chronic pain syndrome. He has back pain. Has seen pain specialists Dr Bran and Dr Watson. He was not satisfied with injections and has appt Friday to see IU for implantable morphine pump. He drove to [facility] today to have mental health evaluation prior to pain management. He just drove home and states the pain is worse. The psychological evaluation showed bipolar disorder and some psychological overlay of his chronic pain syndrome. No fever or chills. Pain is similar to prior but worse after driving. He was here recently for pain and took motrin without reaction. No bowel or bladder problems. Timing/Duration: today Back Pain Location: lumbar spine Severity of Pain-Max: severe Severity of Pain-Current: severe Allergies/Adverse Reactions: Penicillins Allergy (Intermediate, Verified 08/17/17 20:03) Swelling aspirin Allergy (Verified 08/17/17 20:03) Hives cephalexin monohydrate [From Keflex] Allergy (Verified 08/17/17 20:03) Swelling gabapentin [From Neurontin] Allergy (Verified 08/17/17 20:03) Hives ketorolac [From Toradol] Allergy (Verified 08/17/17 20:03) nalbuphine HCl [From Nubain] Allergy (Verified 08/17/17 20:03) Swelling states swell, increased blood pressure HALOTHANE Allergy (Intermediate, Uncoded 08/17/17 20:03) Hives varified on 04/17/15 Pt states "gives me medically induced hepatitis B" Home Medications: Ropinirole HCl 0.5 mg [Requip 0.5 MG] 0.5 mg PO HS 02/03/15 [History] Atenolol 25 mg PO DAILY 05/04/16 [History] Hydrochlorothiazide 25 mg [hydroDIURIL 25 MG] 25 mg PO DAILY 05/04/16 [ History] Moexipril HCl 15 mg [Univasc 15 MG] 7.5 mg PO DAILY 05/04/16 [History] Omeprazole 20 MG [Prilosec 20 mg] 20 mg PO DAILY 05/04/16 [History] Simvastatin 40 mg [Zocor 40 mg] 40 mg PO DAILY 05/04/16 [History] Baclofen 20 mg PO TID 07/06/16 [History] Furosemide 40 mg [Lasix 40 MG] 40 mg PO DAILY 03/27/17 [History] Potassium Chloride 10 Meq Tab* [Klor Con 10 MEQ] 10 meq PO DAILY 03/27/17 [ History] Sertraline HCl 50 mg [Zoloft 50 mg Tablet] 100 mg PO DAILY 03/27/17 [History ] Clonidine HCl 0.1 mg PO TID 06/27/17 [History] Zolpidem Tartrate [Ambien] 5 mg PO HS 07/26/17 [History] Hx Tetanus, Diphtheria Vaccination/Date Given: No Hx Influenza Vaccination/Date Given: No Hx Pneumococcal Vaccination/Date Given: No - Review of Systems Constitutional: No Fever, No Chills Eyes: No Symptoms Ears, Nose, & Throat: No Symptoms Respiratory: No Cough, No Dyspnea Cardiac: No Chest Pain Abdominal/Gastrointestinal: No Abdominal Pain, No Nausea, No Vomiting Genitourinary Symptoms: No Dysuria, No Incontinence Musculoskeletal: Back Pain Skin: No Rash Neurological: No Focal Weakness, No Headache, No Parasthesia All Other Systems: Reviewed and Negative - Past Medical History Pertinent Past Medical History: Yes Neurological History: Stroke ENT History: No Pertinent History Cardiac History: High Cholesterol, Hypertension Respiratory History: COPD, Sleep Apnea Endocrine Medical History: No Pertinent History Musculoskeletal History: Arthritis, Degenerative Disk Disease, Osteoarthritis GI Medical History: GERD History: No Pertinent History Psycho-Social History: Bipolar, Depression Male Reproductive Disorders: No Pertinent History Other Medical History: 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 Stroke. Thrombophlebitis - Past Surgical History Past Surgical History: Yes Neuro Surgical History: No Pertinent History Cardiac: Vascular Surgery Respiratory: No Pertinent History Gastrointestinal: Appendectomy Genitourinary: No Pertinent History Musculoskeletal: Orthopedic Surgery Male Surgical History: No Pertinent History Other Surgical History: MULTI BACK SURG, left knee reconstruction. cvl port placement - Social History Smoking Status: Never smoker Exposure to second hand smoke: No Alcohol Use: None Drug Use: marijuana, other Patient Lives Alone: No Significant Family History: no pertinent family hx - Nursing Vital Signs Nursing Vital Signs: Initial Vital Signs Temperature 98.3 F 08/30/17 02:11 Pulse Rate 80 08/30/17 02:11 Respiratory Rate 20 08/30/17 02:11 Blood Pressure 148/90 08/30/17 02:11 O2 Sat by Pulse Oximetry 98 08/30/17 02:11 Pain Scale Pain Intensity 9 - Physical Exam General Appearance: alert Eye Exam: PERRL/EOMI Ears, Nose, Throat Exam: moist mucous membranes Neck Exam: supple Respiratory Exam: normal breath sounds Cardiovascular Exam: regular rate/rhythm Back Exam: normal inspection (scars) Extremity Exam: normal inspection Neurologic Exam: alert, oriented x 3, cooperative, No motor deficits Skin Exam: warm, dry, No rash SpO2 Interpretation: normal SpO2: 98 Oxygen Delivery: Room Air - Course Nursing assessment & vital signs reviewed: Yes Ordered Tests: Medication Summary Generic Name Dose Route Start Last Admin Trade Name Freq PRN Reason Stop Dose Admin Hydroxyzine HCl 50 mg 08/30/17 02:27 Vistaril 50 Mg/Ml IM 08/30/17 02:28 STAT ONE Ibuprofen 600 mg 08/30/17 02:27 Motrin 600 Mg PO 08/30/17 02:28 STAT ONE - Progress Progress Note: 08/30/17 02:31 Pt has chronic pain syndrome with exacerbation. Advised ER can not refill opioids. Motrin and vistaril given here for acute relief. He has pain appt Friday. Will release with instr. Counseled pt/family regarding: diagnosis, need for follow-up - Departure Time of Disposition: 02:32 Departure Disposition: Home Clinical Impression: Chronic back pain Condition: Stable Critical Care Time: No Referrals: HUNG GARNICA MD [Primary Care Provider] - Instructions: Chronic Pain -- Adult, Low Back Pain Additional Instructions: No driving tonite and stay with family. Followup with pain specialist Friday as planned. Return for problems or concerns.
== END 2017-08-30 02:54 | disposition home or self-care (01) ==
LOC: ED 02:10
DX: M54.9 Dorsalgia, unspecified (principal); G89.4 Chronic pain syndrome; Z79.899 Other long term (current) drug therapy; E78.00 Pure hypercholesterolemia, unspecified; I10 Essential (primary) hypertension
CPT/HCPCS: 96372; 99283; J3410; A9270-GY

== ENCOUNTER 2017-09-13 19:42 | Emergency (ER) | payer MEDICARE | END 2017-09-13 21:20 | disposition left against medical advice (07) | LOC: ED 19:42 | DX: Z53.9 Procedure and treatment not carried out, unspecified reason (principal) ==

== ENCOUNTER 2017-09-19 23:35 | Emergency (ER) | payer MEDICARE ==
[2017-09-19] MEDS ORDERED: Hydromorphone 1 mg/ml Ampule IV ONE (23:47)
[2017-09-19] MEDS ORDERED: Phenergan 25 MG INJ IV ONE (23:47)
--- NOTE | 2017-09-19 23:54 | ERPHSYRPT ---
- History of Present Illness Time Seen by Provider: 09/19/17 23:42 Source: patient Exam Limitations: no limitations Physician History: ABOUT 5 HOURS AGO AT HOME PT WAS IN THE LIVING ROOM AND TRIPPED OVER HIS OXYGEN TUBING LANDING ON HIS RIGHT KNEE WITH RESULTANT PAIN AND BRUISING OF THE RIGHT KNEE; DENIES PRIOR INJURY TO THE RIGHT KNEE; ADMITS TO TINGLING/NUMBNESS OF THE RIGHT TOES FOR YEARS. Allergies/Adverse Reactions: Penicillins Allergy (Intermediate, Verified 09/19/17 23:57) Swelling aspirin Allergy (Verified 09/19/17 23:57) Hives cephalexin monohydrate [From Keflex] Allergy (Verified 09/19/17 23:57) Swelling gabapentin [From Neurontin] Allergy (Verified 09/19/17 23:57) Hives ketorolac [From Toradol] Allergy (Verified 09/19/17 23:57) nalbuphine HCl [From Nubain] Allergy (Verified 09/19/17 23:57) Swelling states swell, increased blood pressure HALOTHANE Allergy (Intermediate, Uncoded 09/19/17 23:57) Hives varified on 04/17/15 Pt states "gives me medically induced hepatitis B" Home Medications: Ropinirole HCl 0.5 mg [Requip 0.5 MG] 0.5 mg PO HS 02/03/15 [History] Atenolol 25 mg PO DAILY 05/04/16 [History] Hydrochlorothiazide 25 mg [hydroDIURIL 25 MG] 25 mg PO DAILY 05/04/16 [ History] Moexipril HCl 15 mg [Univasc 15 MG] 7.5 mg PO DAILY 05/04/16 [History] Omeprazole 20 MG [Prilosec 20 mg] 20 mg PO HS 05/04/16 [History] Simvastatin 40 mg [Zocor 40 mg] 40 mg PO HS 05/04/16 [History] Baclofen 10 mg PO TID 07/06/16 [History] Furosemide 40 mg [Lasix 40 MG] 40 mg PO DAILY 03/27/17 [History] Potassium Chloride 10 Meq Tab* [Klor Con 10 MEQ] 10 meq PO BID 03/27/17 [ History] Sertraline HCl 50 mg [Zoloft 50 mg Tablet] 100 mg PO DINNER 03/27/17 [ History] Clonidine HCl 0.1 mg PO TID 06/27/17 [History] Suvorexant [Belsomra] 15 mg PO HS 09/07/17 [History] Hx Tetanus, Diphtheria Vaccination/Date Given: No Hx Influenza Vaccination/Date Given: No Hx Pneumococcal Vaccination/Date Given: No - Review of Systems Musculoskeletal: Joint Pain (RIGHT KNEE PAIN) - Past Medical History Pertinent Past Medical History: Yes Neurological History: TIA ENT History: No Pertinent History Cardiac History: High Cholesterol, Hypertension Respiratory History: COPD, Sleep Apnea Endocrine Medical History: No Pertinent History Musculoskeletal History: Arthritis, Degenerative Disk Disease, Osteoarthritis GI Medical History: GERD History: No Pertinent History Psycho-Social History: Bipolar, Depression Male Reproductive Disorders: No Pertinent History Other Medical History: 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 TIA. Thrombophlebitis. RLS - Past Surgical History Past Surgical History: Yes Neuro Surgical History: No Pertinent History Cardiac: Vascular Surgery Respiratory: No Pertinent History Gastrointestinal: Appendectomy Genitourinary: No Pertinent History Musculoskeletal: Orthopedic Surgery Male Surgical History: No Pertinent History Other Surgical History: MULTI BACK SURG, left knee reconstruction. cvl port placement - Social History Smoking Status: Never smoker Exposure to second hand smoke: Yes Alcohol Use: None Drug Use: marijuana, other Patient Lives Alone: No Significant Family History: no pertinent family hx - Nursing Vital Signs Nursing Vital Signs: Initial Vital Signs Temperature 97.4 F 09/19/17 23:45 Pulse Rate 90 09/19/17 23:45 Respiratory Rate 18 09/19/17 23:45 Blood Pressure 178/96 09/19/17 23:45 O2 Sat by Pulse Oximetry 96 09/19/17 23:45 Pain Scale Pain Intensity 8 - Physical Exam General Appearance: alert Hips Exam: right: normal range of motion Knees Exam: right knee: soft tissue tenderness (MILD TENDERNESS, EDEMA AND BRUISING OF THE INFERIOR ANTERIOMEDIAL ASPECT OF THE RIGHT KNEE WITH FLEXION LIMITED TO 150 DEGREES.) Ankle Exam: right ankle: normal range of motion Foot Exam: right foot: normal range of motion Neuro/Tendon Exam: sensory deficit (DECREASED SENSATION OF THE RIGHT TOES( ONGOING FOR YEARS)) Mental Status Exam: alert, cooperative - Course Nursing assessment & vital signs reviewed: Yes - Radiology Exams Right Knee X-ray Interpretation: Interpreted by me, No Fracture Ordered Tests: Active Orders 24 hr Category Date Time Status Wilbert Bandage Application -[facility] STAT Care 09/19/17 23:59 Active KNEE (3 VIEWS) Stat Exams 09/19/17 23:48 Ordered Medication Summary Discontinued Medications Generic Name Dose Route Start Last Admin Trade Name Freq PRN Reason Stop Dose Admin Hydrocodone Bitart/Acetaminophen 2 tab 09/20/17 00:05 Mckenzie 5/325 Mg PO 09/20/17 00:06 SENT HOME W/ PATIENT ONE Hydromorphone HCl 1 mg 09/19/17 23:47 Hydromorphone 1 Mg/Ml Ampule IV 09/19/17 23:48 STAT ONE Promethazine HCl 12.5 mg 09/19/17 23:47 Phenergan 25 Mg Inj IV 09/19/17 23:48 STAT ONE - Departure Time of Disposition: 00:08 Departure Disposition: Home Clinical Impression: RIGHT KNEE CONTUSION Condition: Stable Critical Care Time: No Referrals: HUNG GARNICA MD [Primary Care Provider] - Instructions: Contusion Additional Instructions: FOLLOW UP WITH PRIVATE DOCTOR TOMORROW. ELEVATE RIGHT KNEE ABOVE HEART LEVEL FOR 24 HOURS. USE WALKER. WILBERT WRAP TO RIGHT KNEE FOR 4 DAYS.
[2017-09-20] MEDS ORDERED: Phenergan 25 MG INJ ONE (00:05)
[2017-09-20] MEDS ORDERED: NORCO 5/325 MG PO ONE (00:05)
[2017-09-20] MEDS ORDERED: Hydromorphone 1 mg/ml Ampule ONE (00:05)
[2017-09-20] MEDS ORDERED: NORCO 5/325 MG ONE (00:28)
[2017-09-20 00:49] VITALS: BP 152/95; PULSE 75; O2SAT 99
--- NOTE | 2017-09-20 08:21 | XRAY ---
Indication: Medial pain/bruising following fall. Comparison: None 3 views of the right knee demonstrates mild osteopenia, mild tricompartmental degenerative changes, and medial soft tissue swelling. Several well-circumscribed ossifications anterior to the tibial plateau/tibial tuberosity either degenerative versus old injury. No other bony, articular, or soft tissue abnormalities.
== END 2017-09-20 00:48 | disposition home or self-care (01) ==
LOC: ED 23:35
DX: S80.01XA Contusion of right knee, initial encounter (principal); W01.0XXA Fall on same level from slipping, tripping and stumbling without subsequent striking against object, initial encounter; Z79.899 Other long term (current) drug therapy; I10 Essential (primary) hypertension; E78.00 Pure hypercholesterolemia, unspecified; J44.9 Chronic obstructive pulmonary disease, unspecified
CPT/HCPCS: 36000; 36591; 73562; 96374; 96375; 99284; J1170; J1642; J2550; A9270-GY

== ENCOUNTER 2017-10-24 15:57 | Emergency (ER) | payer MEDICARE, SELFPAY ==
[2017-10-24] MEDS ORDERED: Hydromorphone 1 mg/ml Ampule IM ONE (16:15)
--- NOTE | 2017-10-24 16:31 | ERPHSYRPT ---
- History of Present Illness Time Seen by Provider: 10/24/17 16:05 Source: patient Exam Limitations: no limitations Physician History: 62 y/o male brought in by ambulance after walking the dog out and tripped and fell on his left hip. Pt describes the pain as sharp, constant, 10/10, worse with movement and pt has not taken any pain meds. Pt states that he is not able to put weight on the hip. Pt has been in the ER many times for many pain issues. Timing/Duration: today Occured at: home Context: fall Quality: sharpness Hip Pain Location: hip (L) Severity of Pain-Max: severe Severity of Pain-Current: severe Modifying Factors: Improves With: nothing Symptoms prior to fall: none Allergies/Adverse Reactions: Penicillins Allergy (Intermediate, Verified 09/19/17 23:57) Swelling aspirin Allergy (Verified 09/19/17 23:57) Hives cephalexin monohydrate [From Keflex] Allergy (Verified 09/19/17 23:57) Swelling gabapentin [From Neurontin] Allergy (Verified 09/19/17 23:57) Hives ketorolac [From Toradol] Allergy (Verified 09/19/17 23:57) nalbuphine HCl [From Nubain] Allergy (Verified 09/19/17 23:57) Swelling states swell, increased blood pressure HALOTHANE Allergy (Intermediate, Uncoded 09/19/17 23:57) Hives varified on 04/17/15 Pt states "gives me medically induced hepatitis B" Home Medications: Ropinirole HCl 0.5 mg [Requip 0.5 MG] 0.5 mg PO HS 02/03/15 [History] Atenolol 25 mg PO DAILY 05/04/16 [History] Hydrochlorothiazide 25 mg [hydroDIURIL 25 MG] 25 mg PO DAILY 05/04/16 [ History] Moexipril HCl 15 mg [Univasc 15 MG] 7.5 mg PO DAILY 05/04/16 [History] Omeprazole 20 MG [Prilosec 20 mg] 20 mg PO HS 05/04/16 [History] Simvastatin 40 mg [Zocor 40 mg] 40 mg PO HS 05/04/16 [History] Baclofen 10 mg PO TID 07/06/16 [History] Furosemide 40 mg [Lasix 40 MG] 40 mg PO DAILY 03/27/17 [History] Potassium Chloride 10 Meq Tab* [Klor Con 10 MEQ] 10 meq PO BID 03/27/17 [ History] Sertraline HCl 50 mg [Zoloft 50 mg Tablet] 100 mg PO DINNER 03/27/17 [ History] Clonidine HCl 0.1 mg PO TID 06/27/17 [History] Suvorexant [Belsomra] 15 mg PO HS 09/07/17 [History] Hx Tetanus, Diphtheria Vaccination/Date Given: No Hx Influenza Vaccination/Date Given: No Hx Pneumococcal Vaccination/Date Given: No - Review of Systems Constitutional: No Fever, No Chills Eyes: No Symptoms Ears, Nose, & Throat: No Symptoms Respiratory: No Cough, No Dyspnea Cardiac: No Chest Pain, No Edema, No Syncope Abdominal/Gastrointestinal: No Abdominal Pain, No Nausea, No Vomiting, No Diarrhea Genitourinary Symptoms: No Dysuria Musculoskeletal: Joint Pain, No Back Pain, No Neck Pain Skin: No Rash Neurological: No Dizziness, No Focal Weakness, No Sensory Changes Psychological: No Symptoms Endocrine: No Symptoms All Other Systems: Reviewed and Negative - Past Medical History Pertinent Past Medical History: Yes Neurological History: TIA ENT History: No Pertinent History Cardiac History: High Cholesterol, Hypertension Respiratory History: COPD, Sleep Apnea Endocrine Medical History: No Pertinent History Musculoskeletal History: Arthritis, Degenerative Disk Disease, Osteoarthritis GI Medical History: GERD History: No Pertinent History Psycho-Social History: Bipolar, Depression Male Reproductive Disorders: No Pertinent History Other Medical History: 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 TIA. Thrombophlebitis. RLS - Past Surgical History Past Surgical History: Yes Neuro Surgical History: No Pertinent History Cardiac: Vascular Surgery Respiratory: No Pertinent History Gastrointestinal: Appendectomy Genitourinary: No Pertinent History Musculoskeletal: Orthopedic Surgery Male Surgical History: No Pertinent History Other Surgical History: MULTI BACK SURG, left knee reconstruction. cvl port placement - Social History Smoking Status: Never smoker Exposure to second hand smoke: Yes Alcohol Use: None Drug Use: marijuana, other Patient Lives Alone: No Significant Family History: no pertinent family hx - Nursing Vital Signs Nursing Vital Signs: Initial Vital Signs Temperature 98.7 F 10/24/17 16:27 Pulse Rate 82 10/24/17 16:27 Respiratory Rate 16 12/22/17 16:27 Blood Pressure 126/73 10/24/17 16:27 O2 Sat by Pulse Oximetry 99 10/24/17 16:27 Pain Scale Pain Intensity 9 - Physical Exam General Appearance: mild distress, alert, anxiety Eye Exam: PERRL/EOMI Ears, Nose, Throat Exam: normal ENT inspection, moist mucous membranes Neck Exam: normal inspection, non-tender, supple Respiratory Exam: normal breath sounds, lungs clear, No chest tenderness, No respiratory distress Cardiovascular Exam: regular rate/rhythm, No edema Gastrointestinal Exam: soft, No tenderness, No distention, No guarding Back Exam: normal inspection, normal range of motion, No vertebral tenderness Extremity Exam: normal inspection, normal range of motion, No pelvis stable Neurologic Exam: alert, oriented x 3, cooperative, staff accountant II-XII nml as tested, sensation nml, No motor deficits Skin Exam: normal color, warm, dry, No rash - Course Nursing assessment & vital signs reviewed: Yes Ordered Tests: Active Orders 24 hr Category Date Time Status HIP UNI (2V) INCL PEL IF DONE Stat Exams 10/24/17 17:55 Taken Medication Summary Discontinued Medications Generic Name Dose Route Start Last Admin Trade Name Freq PRN Reason Stop Dose Admin Hydromorphone HCl 1 mg 10/24/17 16:15 10/24/17 16:38 Hydromorphone 1 Mg/Ml Ampule IM 10/24/17 16:16 1 mg STAT ONE Administration Hydromorphone HCl Confirm 10/24/17 16:37 Hydromorphone 1 Mg/Ml Ampule Administered 10/24/17 16:38 Dose 1 mg .ROUTE .STK-MED ONE - Progress Progress: improved Progress Note: 10/24/17 19:16 The patient feels better after receiving dilaudid 1mg IM X 1 dose. The hip x ray does not show any acute findings. The patient will be d/c home with F/U with PCP - Departure Time of Disposition: 19:17 Departure Disposition: Home Clinical Impression: Hip sprain Qualifiers: Encounter type: initial encounter Laterality: left Qualified Code(s): S73.102A - Unspecified sprain of left hip, initial encounter Condition: Stable Critical Care Time: No Referrals: HUNG GARNICA MD [Primary Care Provider] - Instructions: Muscle Strain Additional Instructions: Follow up with your primary care doctor regarding any additional pain medications.
[2017-10-24 16:33] VITALS: BP 126/73; PULSE 82; O2SAT 99
[2017-10-24] MEDS ORDERED: Hydromorphone 1 mg/ml Ampule ONE (16:37)
--- NOTE | 2017-10-24 21:03 | XRAY ---
Indication: Pain following fall. Comparison: April 04, 2015. 2 views of the left hip obtained. Again no bony, articular, or soft tissue abnormalities.
== END 2017-10-24 19:48 | disposition home or self-care (01) ==
LOC: ED 15:57
DX: S73.102A Unspecified sprain of left hip, initial encounter (principal); W18.39XA Other fall on same level, initial encounter; M25.552 Pain in left hip; I10 Essential (primary) hypertension; E78.00 Pure hypercholesterolemia, unspecified; Z79.899 Other long term (current) drug therapy
CPT/HCPCS: 73502; 96372; 99284; J1170

== ENCOUNTER 2017-11-03 19:09 | Inpatient (IN) | payer MEDICARE ==
[2017-11-03] MEDS ORDERED: Hydromorphone 1 mg/ml Ampule IV ONE (20:24)
[2017-11-03] MEDS ORDERED: BENADRYL 50 MG/ML IV ONE (20:26)
[2017-11-03] MEDS ORDERED: PHARMACY DOSING REQUEST IJ ONE (20:26)
[2017-11-03] MEDS ORDERED: Sodium Chloride 0.9% 1000 ML 1,000 ML IV SCH (20:30)
--- NOTE | 2017-11-03 20:32 | ERPHSYRPT ---
- History of Present Illness Time Seen by Provider: 11/03/17 20:13 Source: patient Patient Subjective Stated Complaint: pt states he has redness and swelling to lt arm si nce having blood drawn 2 weeks ago. states redness is increasing today Triage Nursing Assessment: pt alert and oriented. pt ambulatory with steady gait ntoed, respirations nonlabored. pt states he is on o2 at 4l at all times at home. no o2 on at this time. o2 sat 96/100 on room air. redness ntoed to lt arm extending upper arm thru ac area and down to lower arm. radial pulse, cap refikll, and sensation wnl Physician History: CC: redness left arm Hx: 62 y/o patient of Dr Garnica. He states had a blood draw 2 weeks ago in left arm at the elbow. It was a little red. He has been self treating with neosporin. Today there was lots more redness from the area extending both up and down the left arm. There is some pain and swelling. He has left port a cath. No fever or chills. No itching. He has chronic CHF. He wears oxygen. Denies self injection. He had prior thrombophlebitis. Extremities Pain Location: elbow: left Allergies/Adverse Reactions: Penicillins Allergy (Intermediate, Verified 11/03/17 19:35) Swelling aspirin Allergy (Verified 11/03/17 19:35) Hives cephalexin monohydrate [From Keflex] Allergy (Verified 11/03/17 19:35) Swelling gabapentin [From Neurontin] Allergy (Verified 11/03/17 19:35) Hives ketorolac [From Toradol] Allergy (Verified 11/03/17 19:35) nalbuphine HCl [From Nubain] Allergy (Verified 11/03/17 19:35) Swelling states swell, increased blood pressure HALOTHANE Allergy (Intermediate, Uncoded 11/03/17 19:35) Hives varified on 04/17/15 Pt states "gives me medically induced hepatitis B" Home Medications: Ropinirole HCl 0.5 mg [Requip 0.5 MG] 0.5 mg PO HS 02/03/15 [History] Atenolol 25 mg PO DAILY 05/04/16 [History] Hydrochlorothiazide 25 mg [hydroDIURIL 25 MG] 25 mg PO DAILY 05/04/16 [ History] Moexipril HCl 15 mg [Univasc 15 MG] 7.5 mg PO DAILY 05/04/16 [History] Omeprazole 20 MG [Prilosec 20 mg] 20 mg PO HS 05/04/16 [History] Simvastatin 40 mg [Zocor 40 mg] 40 mg PO HS 05/04/16 [History] Baclofen 10 mg PO TID 07/06/16 [History] Furosemide 40 mg [Lasix 40 MG] 40 mg PO DAILY 03/27/17 [History] Potassium Chloride 10 Meq Tab* [Klor Con 10 MEQ] 10 meq PO BID 03/27/17 [ History] Sertraline HCl 50 mg [Zoloft 50 mg Tablet] 100 mg PO DINNER 03/27/17 [ History] Clonidine HCl 0.1 mg PO TID 06/27/17 [History] Suvorexant [Belsomra] 15 mg PO HS 09/07/17 [History] Hx Tetanus, Diphtheria Vaccination/Date Given: Yes (4yrs ago) Hx Influenza Vaccination/Date Given: Yes (jul 2017) Hx Pneumococcal Vaccination/Date Given: Yes (jul 2017) Immunizations Up to Date: Yes - Review of Systems Constitutional: Malaise, No Fever, No Chills Eyes: No Symptoms Ears, Nose, & Throat: No Symptoms Respiratory: No Cough, No Dyspnea Cardiac: No Chest Pain Abdominal/Gastrointestinal: No Abdominal Pain, No Nausea, No Vomiting, No Diarrhea Skin: Skin Lesions (redness left elbow) Neurological: No Focal Weakness, No Parasthesia All Other Systems: Reviewed and Negative - Past Medical History Pertinent Past Medical History: Yes Neurological History: TIA ENT History: No Pertinent History Cardiac History: High Cholesterol, Hypertension Respiratory History: COPD, Sleep Apnea Endocrine Medical History: No Pertinent History Musculoskeletal History: Arthritis, Degenerative Disk Disease, Osteoarthritis GI Medical History: GERD History: No Pertinent History Psycho-Social History: Bipolar, Depression Male Reproductive Disorders: No Pertinent History Other Medical History: 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 TIA. Thrombophlebitis. RLS - Past Surgical History Past Surgical History: Yes Neuro Surgical History: No Pertinent History Cardiac: Vascular Surgery Respiratory: No Pertinent History Gastrointestinal: Appendectomy Genitourinary: No Pertinent History Musculoskeletal: Orthopedic Surgery Male Surgical History: No Pertinent History Other Surgical History: MULTI BACK SURG, left knee reconstruction. cvl port placement - Social History Smoking Status: Never smoker Exposure to second hand smoke: Yes Alcohol Use: None Drug Use: marijuana, other Patient Lives Alone: No Significant Family History: no pertinent family hx - Nursing Vital Signs Nursing Vital Signs: Initial Vital Signs Temperature 97.3 F 11/03/17 19:17 Pulse Rate 88 11/03/17 19:17 Respiratory Rate 20 11/03/17 19:17 Blood Pressure 143/76 11/03/17 19:17 O2 Sat by Pulse Oximetry 97 11/03/17 19:17 Pain Scale Pain Intensity 8 - Physical Exam General Appearance: alert Eyes, Ears, Nose, Throat Exam: dry mucous membranes Neck Exam: supple Cardiovascular/Respiratory Exam: normal breath sounds, regular rate/rhythm Abdominal Exam: non-tender, soft Neuro/Tendon Exam: normal sensation, normal motor functions Mental Status Exam: alert, oriented x 3, cooperative Skin Exam: warm, dry SpO2 Interpretation: normal SpO2: 97 Oxygen Delivery: Room Air Comments: Left arm has redness, induration, swelling from the antecubital area extending proximal and distal. Radial pulse intact. This appears to be cellulitis. - Course Nursing assessment & vital signs reviewed: Yes Ordered Tests: Active Orders 24 hr Category Date Time Status Clean Catch Urine Specimen STAT Care 11/03/17 20:24 Active IV Insertion STAT Care 11/03/17 20:24 Active CHEST 1 VIEW (PORTABLE) Stat Exams 11/03/17 20:59 Ordered ELBOW (MINIMUM 3 VIEWS) Stat Exams 11/03/17 20:25 Ordered BLOOD CULTURE Stat Lab 11/03/17 20:50 Received CBC W DIFF Stat Lab 11/03/17 20:40 Completed CMP Stat Lab 11/03/17 20:40 Completed Lactic Acid Stat Lab 11/03/17 20:38 Completed MAGNESIUM Stat Lab 11/03/17 21:32 Ordered UA W/RFX UR CULTURE Stat Lab 11/03/17 20:24 Ordered Urine Triage Profile Stat Lab 11/03/17 20:24 Ordered Transfer Order Routine Transfer 11/03/17 Ordered Medication Summary Generic Name Dose Route Start Last Admin Trade Name Freq PRN Reason Stop Dose Admin Sodium Chloride 1,000 mls @ 50 mls/hr 11/03/17 20:30 11/03/17 20:48 Sodium Chloride 0.9% 1000 Ml IV 12/03/17 20:29 50 mls/hr .Q20H BISHNU Administration Levofloxacin/Dextrose 750 mg in 150 mls @ 100 mls/hr 11/03/17 21:31 Levofloxacin 750mg/150ml D5w IV 11/03/17 23:00 STAT STA Potassium Chloride 100 mls @ 50 mls/hr 11/03/17 21:45 Potassium Chloride 20 Meq In Water 100ml IV 11/04/17 01:44 Q2H BISHNU Discontinued Medications Generic Name Dose Route Start Last Admin Trade Name Freq PRN Reason Stop Dose Admin Diphenhydramine HCl 25 mg 11/03/17 20:26 11/03/17 20:49 Benadryl 50 Mg/Ml IV 11/03/17 20:27 25 mg STAT ONE Administration Diphenhydramine HCl Confirm 11/03/17 20:42 Benadryl 50 Mg/Ml Administered 11/03/17 20:43 Dose 50 mg .ROUTE .STK-MED ONE Hydromorphone HCl 1 mg 11/03/17 20:24 11/03/17 20:48 Hydromorphone 1 Mg/Ml Ampule IV 11/03/17 20:25 1 mg STAT ONE Administration Hydromorphone HCl Confirm 11/03/17 20:42 Hydromorphone 1 Mg/Ml Ampule Administered 11/03/17 20:43 Dose 1 mg .ROUTE .STK-MED ONE Non-Formulary Medication 1 each 11/03/17 20:26 Pharmacy Dosing Request IJ 11/03/17 20:27 STAT ONE Lab/Rad Data: Laboratory Result Diagrams 11/03/17 20:40 11/03/17 20:40 Laboratory Results 11/03/17 11/03/17 11/03/17 Range/Units 20:40 20:40 20:38 WBC 7.0 (4.0-10.5) K/mm3 RBC 3.11 L (4.1-5.6) M/mm3 Hgb 9.0 L (12.5-18.0) gm/dl Hct 28.2 L (42-50) % MCV 90.7 (78-100) fl MCH 28.9 (26-32) pg MCHC 31.9 L (32-36) g/dl RDW 15.5 H (11.5-14.0) % Plt Count 196 (150-450) K/mm3 MPV 10.1 H (6-9.5) fl Gran % 65.9 (36.0-66.0) % Lymphocytes % 18.5 L (24.0-44.0) % Monocytes % 9.3 (0.0-12.0) % Eosinophils % 6.2 H (0.00-5.0) % Basophils % 0.1 (0.0-0.4) % Basophils # 0.01 (0-0.4) Sodium 138 (136-145) mEq/L Potassium 2.5 L* (3.5-5.1) mEq/L Chloride 100 (98-107) mEq/L Carbon Dioxide 28.2 (21-32) mEq/L Anion Gap 11.8 (5-15) MEQ/L BUN 31 H (9-20) mg/dL Creatinine 1.14 (0.55-1.30) mg/dl Estimated GFR > 60 ML/MIN Glucose 115 H (70-110) MG/DL Lactic Acid 0.7 (0.4-2.0) Calcium 8.6 (8.5-10.1) mg/dL Total Bilirubin 0.90 (0.2-1.0) mg/dL AST 51 H (15-37) U/L ALT 57 (12-78) U/L Alkaline Phosphatase 205 H (46-116) U/L Serum Total Protein 7.1 (6.4-8.2) gm/dL Albumin 3.3 L (3.4-5.0) g/dL - Progress Progress Note: 11/03/17 21:[address] Salinas Gurrola for admission. She advised tricia and levjunaid. Will supp K tonite. He has prior anemia and no apparent active bleeding. Will get sono to rule out UE DVT in AM. Discussed with : Erwin Gurrola Will see patient in: hospital (full admit) Counseled pt/family regarding: lab results, diagnosis, need for follow-up - Departure Time of Disposition: 21:37 Departure Disposition: In-patient Admission Clinical Impression: Left arm cellulitis, Anemia, Hypokalemia Condition: Fair Critical Care Time: No Referrals: HUNG GARNICA MD [Primary Care Provider] -
[2017-11-03] MEDS ORDERED: BENADRYL 50 MG/ML ONE (20:42)
[2017-11-03] MEDS ORDERED: Sodium Chloride 0.9% 1000 ML 1,000 ML ONE (20:42)
[2017-11-03] MEDS ORDERED: Hydromorphone 1 mg/ml Ampule ONE (20:42)
[2017-11-03 20:51] LABS: BASOPHIL % 0.1 % (0.0-0.4); Basophil (Absolute #) 0.01 (0-0.4); Eosinophil % 6.2 % (0.00-5.0); Eosinophil (Absolute #) 0.43 (0-0.5); Granulocyte Absolute (ANC) 4.59 (1.4-6.9); Granulocytes % 65.9 % (36.0-66.0); Hematocrit 28.2 % (42-50); Lymphocyte (Absolute #) 1.29 (1.0-4.6); Lymphocytes % 18.5 % (24.0-44.0); Mean Cell Volume 90.7 fl (78-100); Mean Corpuscular Hemoglobin 28.9 pg (26-32); Mean Corpuscular Hgb Concent. 31.9 g/dl (32-36); Mean Platelet Volume 10.1 fl (6-9.5); Monocyte (Absolute #) 0.65 (0.0-1.3); Monocytes % 9.3 % (0.0-12.0); Platelet Count 196 K/mm3 (150-450); Red Blood Count 3.11 M/mm3 (4.1-5.6); Red Cell Distribution Width 15.5 % (11.5-14.0)
[2017-11-03 21:13] LABS: ALBUMIN 3.3 g/dL (3.4-5.0); ALKALINE PHOSPHATASE 205 U/L (46-116); ANION GAP 11.8 MEQ/L (5-15); BLOOD UREA NITROGEN 31 mg/dL (9-20); CHLORIDE 100 mEq/L (98-107); Calcium 8.6 mg/dL (8.5-10.1); Carbon Dioxide 28.2 mEq/L (21-32); Creatinine 1 1.14 mg/dl (0.55-1.30); EST GLOMERULAR FILTRATION RATE > 60 ML/MIN; Glucose 115 MG/DL (70-110); SGOT/AST 51 U/L (15-37); SGPT/ALT 57 U/L (12-78); SODIUM 138 mEq/L (136-145); Total Protein 7.1 gm/dL (6.4-8.2)
[2017-11-03 21:15] LABS: Potassium 2.5 mEq/L (3.5-5.1)
[2017-11-03] MEDS ORDERED: LEVOFLOXACIN 750MG/150ML D5W 750 MG/150 ML BAG IV STA (21:31)
[2017-11-03] MEDS ORDERED: LEVOFLOXACIN 750MG/150ML D5W 750 MG/150 ML BAG IV ONE (21:43)
[2017-11-03] MEDS ORDERED: TYLENOL 325 MG PO PRN (22:47)
[2017-11-03] MEDS ORDERED: PHARMACY DOSING REQUIRED: VANCOMYCIN IV ONE (22:47)
[2017-11-03] MEDS ORDERED: Magnesium 1 Gm / 100 Ml D5W*** 200 ML IV ONE (22:52)
[2017-11-03] MEDS ORDERED: VANCOCIN 1 GM VIAL*** 1 GM in Sodium Chloride 0.9% 250 ML 250 ML IV ONE (23:30)
[2017-11-03] MEDS: POTASSIUM CHLORIDE 20 mEq IN WATER 100ML 100 ML IV SCH (23:48)
[2017-11-04] MEDS: DILAUDID 2 MG INJECTION IV PRN ×6 (00:53→21:27)
[2017-11-04] MEDS: POTASSIUM CHLORIDE 20 mEq IN WATER 100ML 100 ML IV SCH (01:50)
[2017-11-04] MEDS: Magnesium 1 Gm / 100 Ml D5W*** 100 ML IV SCH ×2 (04:12→04:45)
[2017-11-04 04:36] LABS: Appearance CLEAR (CLEAR); Bilirubin NEGATIVE (NEGATIVE); Blood NEGATIVE Ery/ul (0-5); Glucose NEGATIVE (NEGATIVE); Ketones NEGATIVE (NEGATIVE); Leukocyte Esterase NEGATIVE (NEGATIVE); Nitrite NEGATIVE (NEGATIVE); Protein,Urine Dip NEGATIVE (Negative); Urobilinogen NORMAL mg/dL (0-1)
[2017-11-04 04:43] LABS: Amphetamine,Urine NEG. (NEGATIVE); Barbiturate,Urine NEG. (NEGATIVE); Benzodiazepine,Urine POS. (NEGATIVE); Cocaine,Urine NEG. (NEGATIVE); Methadone,Urine NEG. (NEGATIVE); Opiate,Urine POS. (NEGATIVE); PCP,Urine NEG. (NEGATIVE); THC,Urine POS. (NEGATIVE)
[2017-11-04] MEDS ORDERED: Vancomycin 1GM/ Ns 250ML*** 250 ML IV ONE (04:56)
[2017-11-04 05:48] LABS: BASOPHIL % 0.2 % (0.0-0.4); Basophil (Absolute #) 0.01 (0-0.4); Eosinophil % 4.5 % (0.00-5.0); Eosinophil (Absolute #) 0.27 (0-0.5); Granulocyte Absolute (ANC) 4.11 (1.4-6.9); Granulocytes % 69.1 % (36.0-66.0); Hematocrit 27.8 % (42-50); Lymphocyte (Absolute #) 1.05 (1.0-4.6); Lymphocytes % 17.6 % (24.0-44.0); Mean Cell Volume 91.7 fl (78-100); Mean Corpuscular Hemoglobin 29.7 pg (26-32); Mean Corpuscular Hgb Concent. 32.4 g/dl (32-36); Mean Platelet Volume 9.7 fl (6-9.5); Monocyte (Absolute #) 0.51 (0.0-1.3); Monocytes % 8.6 % (0.0-12.0); Platelet Count 177 K/mm3 (150-450); Red Blood Count 3.03 M/mm3 (4.1-5.6); Red Cell Distribution Width 15.4 % (11.5-14.0)
[2017-11-04 06:22] LABS: ANION GAP 9.8 MEQ/L (5-15); BLOOD UREA NITROGEN 24 mg/dL (9-20); CHLORIDE 101 mEq/L (98-107); Calcium 8.3 mg/dL (8.5-10.1); Carbon Dioxide 30.6 mEq/L (21-32); Creatinine 1 0.97 mg/dl (0.55-1.30); EST GLOMERULAR FILTRATION RATE > 60 ML/MIN; Glucose 136 MG/DL (70-110); SODIUM 138 mEq/L (136-145)
[2017-11-04 06:29] LABS: Potassium 2.6 mEq/L (3.5-5.1)
[2017-11-04] MEDS: PROVENTIL 2.5 MG/3 ML NEB IH SCH ×2 (07:38→20:46)
[2017-11-04] MEDS: Advair Hfa 230/21 Mcg COMMON CANISTER IH SCH ×2 (07:38→20:47)
[2017-11-04] MEDS: VANCOCIN IV SCH ×2 (08:12→19:38)
[2017-11-04] MEDS: [UNRECOGNIZED DRUG - OTHER] IV SCH ×2 (08:12→19:38)
[2017-11-04] MEDS: DEXTROSE 5% IV SCH ×2 (08:12→19:38)
--- NOTE | 2017-11-04 08:47 | XRAY ---
Indication: Cellulitis. Comparison: September 07, 2017. Portable chest is better inflated today. Right costophrenic angle is not included. Remaining lungs clear. Heart is not enlarged with stable left-sided Port-A-Cath. Bony thorax intact again with mild osteopenia and degenerative changes. Impression: Nonacute limited chest.
--- NOTE | 2017-11-04 08:55 | XRAY ---
Indication: Cellulitis. Comparison: None 3 views of the left elbow demonstrates medial soft tissue swelling without underlying fracture, dislocation, or osseous destructive process. Tiny well-circumscribed ossification adjacent to the medial epicondyle either degenerative versus old injury. Small olecranon spurring. Impression: Soft tissue swelling. Negative fracture/osteomyelitis. Degenerative spurring.
--- NOTE | 2017-11-04 10:47 | XRAY ---
Indication: Left arm erythema and swelling. Pain. Two-dimensional sonogram and color Doppler imaging of the major venous vessels of the left upper extremity was performed. Comparison: None There is occluding thrombus in the basilic vein with no color Doppler flow. Remaining visualized left jugular, subclavian, axillary, cephalic, ulnar, and radial veins are patent. Impression: Occluding thrombus in the basilic vein.
[2017-11-04] MEDS: POTASSIUM CHLORIDE 20 mEq IN WATER 100ML 20 MEQ/100 ML BAG IV SCH ×4 (11:48→21:37)
--- NOTE | 2017-11-04 12:19 | PCM.HP ---
History of Present Illness - Chief Complaint Chief Complaint: swelling in left arm History of Present Illness: is a 62 year old male. He states had a blood draw 2 weeks ago in left arm at the elbow. It was a little red. He has been self treating with neosporin. Today there was lots more redness from the area extending both up and down the left arm. There is some pain and swelling. He has left port a cath. No fever or chills. No itching. He has chronic CHF. He wears oxygen. Denies self injection. He had prior thrombophlebitis. - Review of Systems Constitutional: No Fever, No Chills Eyes: No Symptoms Ears, Nose, & Throat: No Symptoms Respiratory: No Cough, No Short Of Breath Cardiac: No Chest Pain, No Edema, No Syncope Abdominal/Gastrointestinal: No Abdominal Pain, No Nausea, No Vomiting, No Diarrhea Genitourinary Symptoms: No Dysuria Musculoskeletal: No Back Pain, No Neck Pain Skin: Cellulitis (left cubital area), No Rash Neurological: No Dizziness, No Focal Weakness, No Sensory Changes Psychological: No Symptoms Endocrine: No Symptoms Hematologic/Lymphatic: No Symptoms Immunological/Allergic: No Symptoms Medications & Allergies Home Medications: Home Medication List Ropinirole HCl 0.5 mg [Requip 0.5 MG] 0.5 mg PO HS 02/03/15 [History Confirmed 11/03/17] Atenolol 25 mg PO LUNCH 05/04/16 [History Confirmed 11/03/17] Hydrochlorothiazide 25 mg [hydroDIURIL 25 MG] 25 mg PO DAILY 05/04/16 [ History Confirmed 11/03/17] Moexipril HCl 15 mg [Univasc 15 MG] 7.5 mg PO DAILY 05/04/16 [History Confirmed 11/03/17] Omeprazole 20 MG [Prilosec 20 mg] 20 mg PO HS 05/04/16 [History Confirmed ] Ondansetron [Zofran Odt] 4 mg PO Q4-6HPRN PRN #10 tab.rapdis 05/04/16 [Rx Confirmed 11/03/17] Simvastatin 40 mg [Zocor 40 mg] 40 mg PO HS 05/04/16 [History Confirmed 11/03/17 ] Baclofen 10 mg PO TID 07/06/16 [History Confirmed 11/03/17] Furosemide 40 mg [Lasix 40 MG] 40 mg PO DAILY 03/27/17 [History Confirmed 11/03/17] Potassium Chloride 10 Meq Tab* [Klor Con 10 MEQ] 10 meq PO BID 03/27/17 [ History Confirmed 11/03/17] Sertraline HCl 50 mg [Zoloft 50 mg Tablet] 100 mg PO DINNER 03/27/17 [ History Confirmed 11/03/17] Clonidine HCl 0.1 mg PO TID 06/27/17 [History Confirmed 11/03/17] Suvorexant [Belsomra] 15 mg PO HS 09/07/17 [History Confirmed 11/03/17] Morphine Sulfate [Morphabond ER] 100 mg PO BID 11/03/17 [History Confirmed 11/03] Budesonide/Formoterol Fumarate [Symbicort 160-4.5 Mcg Inhaler] 10.2 gm IH BID [History Confirmed 11/04/17] Allergies/Adverse Reactions: Allergies Allergy/AdvReac Type Severity Reaction Status Date / Time Penicillins Allergy Intermediate Swelling Verified 11/03/17 19:35 aspirin Allergy Hives Verified 11/03/17 19:35 cephalexin monohydrate Allergy Swelling Verified 11/03/17 19:35 [From Keflex] gabapentin [From Neurontin] Allergy Hives Verified 11/03/17 19:35 ketorolac [From Toradol] Allergy Verified 11/03/17 19:35 nalbuphine HCl [From Nubain] Allergy Swelling Verified 11/03/17 19:35 HALOTHANE Allergy Intermediate Hives Uncoded 11/03/17 19:35 - Past Medical History Past Medical History: Yes Neurological History: TIA ENT History: No Pertinent History Cardiac History: High Cholesterol, Hypertension Respiratory History: COPD, Sleep Apnea Endocrine Medical History: No Pertinent History Musculoskelatal History: Arthritis, Degenerative Disk Disease, Osteoarthritis GI Medical History: GERD History: No Pertinent History Pyscho-Social History: Bipolar, Depression Male Reproductive Disorders: No Pertinent History Comment: 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 TIA. Thrombophlebitis. RLS - Past Surgical History Past Surgical History: Yes Neuro Surgical History: No Pertinent History Cardiac History: Vascular Surgery Respiratory Surgery: No Pertinent History GI Surgical History: Appendectomy Genitourinary Surgical Hx: No Pertinent History Musculskeletal Surgical Hx: Orthopedic Surgery Male Surgical History: No Pertinent History Other Surgical History: MULTI BACK SURG, left knee reconstruction. cvl port placement - Social History Smoking Status: Never smoker Exposure to second hand smoke: Yes Alcohol: None Drug Use: marijuana Significant Family History: no pertinent family hx - Physical Exam Vital Signs: Vital Signs - 24 hr Temp Pulse Resp BP Pulse Ox 11/04/17 08:00 98.5 F 72 16 145/70 94 L 11/04/17 07:38 77 18 97 11/04/17 04:00 98.2 F 86 18 122/57 99 11/03/17 23:24 98.4 F 74 16 120/56 98 11/03/17 23:13 88 17 97 11/03/17 22:26 72 18 130/57 98 11/03/17 21:38 97 11/03/17 20:59 86 18 130/66 99 11/03/17 19:17 97.3 F 88 20 143/76 97 Oxygen-Last 24 hours O2 Percentage 2 Liters = 28% O2 Percentage 4 Liters = 36% O2 Percentage 4 Liters = 36% O2 Percentage 4 Liters = 36% Oxygen Flowrate (L/min)-RT 4 General Appearance: no apparent distress, alert Neurologic Exam: alert, oriented x 3, cooperative, normal mood/affect, nml cerebellar function, nml station & gait, sensation nml, No motor deficits Eye Exam: PERRL/EOMI, eyes nml inspection Ears, Nose, Throat Exam: normal ENT inspection, TMs normal, pharynx normal, moist mucous membranes Neck Exam: normal inspection, non-tender, supple, full range of motion Respiratory Exam: normal breath sounds, lungs clear, No respiratory distress Cardiovascular Exam: regular rate/rhythm, normal heart sounds, normal peripheral pulses Gastrointestinal/Abdomen Exam: soft, normal bowel sounds, No tenderness, No mass Back Exam: normal inspection, normal range of motion, No CVA tenderness, No vertebral tenderness Extremity Exam: normal inspection, normal range of motion, pelvis stable Skin Exam: normal color, warm, dry, No rash Lymphatic Exam: No adenopathy Results - Labs Lab/Micro Results: Lab Results-Last 24 Hours 11/04/17 11/04/17 11/04/17 Range/Units 04:15 04:30 05:40 WBC 6.0 (4.0-10.5) K/mm3 RBC 3.03 L (4.1-5.6) M/mm3 Hgb 9.0 L (12.5-18.0) gm/dl Hct 27.8 L (42-50) % MCV 91.7 (78-100) fl MCH 29.7 (26-32) pg MCHC 32.4 (32-36) g/dl RDW 15.4 H (11.5-14.0) % Plt Count 177 (150-450) K/mm3 MPV 9.7 H (6-9.5) fl Gran % 69.1 H (36.0-66.0) % Lymphocytes % 17.6 L (24.0-44.0) % Monocytes % 8.6 (0.0-12.0) % Eosinophils % 4.5 (0.00-5.0) % Basophils % 0.2 (0.0-0.4) % Basophils # 0.01 (0-0.4) Sodium (136-145) mEq/L Potassium (3.5-5.1) mEq/L Chloride (98-107) mEq/L Carbon Dioxide (21-32) mEq/L Anion Gap (5-15) MEQ/L BUN (9-20) mg/dL Creatinine (0.55-1.30) mg/dl Estimated GFR ML/MIN Glucose (70-110) MG/DL Calcium (8.5-10.1) mg/dL Ur Collection Type CCMS Urine Color YELLOW (YELLOW) Urine Appearance CLEAR (CLEAR) Urine pH 5.0 (5-6) Ur Specific [place] 1.020 (1.005-1.025) Urine Protein NEGATIVE (Negative) Urine Ketones NEGATIVE (NEGATIVE) Urine Blood NEGATIVE (0-5) Raymond/ul Urine Nitrite NEGATIVE (NEGATIVE) Urine Bilirubin NEGATIVE (NEGATIVE) Urine Urobilinogen NORMAL (0-1) mg/dL Ur Leukocyte Esterase NEGATIVE (NEGATIVE) Urine Culture Reflexed NO (NO) Urine Glucose NEGATIVE (NEGATIVE) mg/dL Urine Opiates Level POS. (NEGATIVE) Ur Methadone NEG. (NEGATIVE) Urine Barbiturates NEG. (NEGATIVE) Ur Phencyclidine (PCP) NEG. (NEGATIVE) Urine Amphetamine NEG. (NEGATIVE) U Benzodiazepine Level POS. (NEGATIVE) Urine Cocaine NEG. (NEGATIVE) Urine Marijuana (THC) POS. (NEGATIVE) Specimen Received 11-04-17 0430 11/04/17 Range/Units 05:40 WBC (4.0-10.5) K/mm3 RBC (4.1-5.6) M/mm3 Hgb (12.5-18.0) gm/dl Hct (42-50) % MCV (78-100) fl MCH (26-32) pg MCHC (32-36) g/dl RDW (11.5-14.0) % Plt Count (150-450) K/mm3 MPV (6-9.5) fl Gran % (36.0-66.0) % Lymphocytes % (24.0-44.0) % Monocytes % (0.0-12.0) % Eosinophils % (0.00-5.0) % Basophils % (0.0-0.4) % Basophils # (0-0.4) Sodium 138 (136-145) mEq/L Potassium 2.6 L* (3.5-5.1) mEq/L Chloride 101 (98-107) mEq/L Carbon Dioxide 30.6 (21-32) mEq/L Anion Gap 9.8 (5-15) MEQ/L BUN 24 H (9-20) mg/dL Creatinine 0.97 (0.55-1.30) mg/dl Estimated GFR > 60 ML/MIN Glucose 136 H (70-110) MG/DL Calcium 8.3 L (8.5-10.1) mg/dL Ur Collection Type Urine Color (YELLOW) Urine Appearance (CLEAR) Urine pH (5-6) Ur Specific [place] (1.005-1.025) Urine Protein (Negative) Urine Ketones (NEGATIVE) Urine Blood (0-5) Raymond/ul Urine Nitrite (NEGATIVE) Urine Bilirubin (NEGATIVE) Urine Urobilinogen (0-1) mg/dL Ur Leukocyte Esterase (NEGATIVE) Urine Culture Reflexed (NO) Urine Glucose (NEGATIVE) mg/dL Urine Opiates Level (NEGATIVE) Ur Methadone (NEGATIVE) Urine Barbiturates (NEGATIVE) Ur Phencyclidine (PCP) (NEGATIVE) Urine Amphetamine (NEGATIVE) U Benzodiazepine Level (NEGATIVE) Urine Cocaine (NEGATIVE) Urine Marijuana (THC) (NEGATIVE) Specimen Received - Other Procedures and Tests Respiratory Therapy 11/03/17 22:52 Oxygen NASAL CANNULA 4 lpm 11/04/17 07:00 Respiratory MDI BID Respiratory Nebulizer BID Assessment/Plan (1) Basilic vein thrombosis Current Visit: Yes Status: Acute Code(s): I82.619 - ACUTE EMBOLISM AND THROMBOSIS OF SUPERFIC VN UNSP UP EXTREM (2) Hypokalemia Current Visit: Yes Status: Acute Code(s): E87.6 - HYPOKALEMIA (3) Left arm cellulitis Current Visit: Yes Status: Acute Code(s): L03.114 - CELLULITIS OF LEFT UPPER LIMB (4) COPD (chronic obstructive pulmonary disease) Current Visit: Yes Status: Chronic Qualifiers: COPD type: unspecified COPD Qualified Code(s): J44.9 - Chronic obstructive pulmonary disease, unspecified (5) Chronic back pain Current Visit: No Status: Chronic Qualifiers: Back pain location: low back pain Code(s): M54.9 - DORSALGIA, UNSPECIFIED; G89.29 - OTHER CHRONIC PAIN (6) Chronic pain syndrome Current Visit: No Status: Chronic Code(s): G89.4 - CHRONIC PAIN SYNDROME
[2017-11-04] MEDS: ENOXAPARIN SODIUM SQ SCH ×3 (17:33→19:06)
[2017-11-04] MEDS ORDERED: Sodium Chloride 0.9% 1000 ML 1,000 ML ONE (18:22)
[2017-11-04 18:48] LABS: ALBUMIN 2.6 g/dL (3.4-5.0); ALKALINE PHOSPHATASE 190 U/L (46-116); ANION GAP 7.8 MEQ/L (5-15); BLOOD UREA NITROGEN 15 mg/dL (9-20); CHLORIDE 103 mEq/L (98-107); Calcium 8.2 mg/dL (8.5-10.1); Carbon Dioxide 31.9 mEq/L (21-32); Creatinine 1 0.89 mg/dl (0.55-1.30); EST GLOMERULAR FILTRATION RATE > 60 ML/MIN; Glucose 133 MG/DL (70-110); PHOSPHOROUS 2.3 mg/dL (2.6-4.7); SGOT/AST 42 U/L (15-37); SGPT/ALT 44 U/L (12-78); SODIUM 139 mEq/L (136-145); Total Protein 6.4 gm/dL (6.4-8.2)
[2017-11-04] MEDS ORDERED: LEVOFLOXACIN 750MG/150ML D5W 750 MG/150 ML BAG IV ONE (19:31)
[2017-11-04] MEDS: LEVOFLOXACIN 750MG/150ML D5W 750 MG/150 ML BAG IV SCH (23:39)
[2017-11-05] MEDS: DILAUDID 2 MG INJECTION IV PRN ×4 (01:33→14:05)
[2017-11-05] MEDS ORDERED: TROUGH DRUG LEVELS IJ ONE (06:00)
[2017-11-05 06:07] LABS: Basophil (Absolute #) 0 (0-0.4); Eosinophil % 2.6 % (0.00-5.0); Eosinophil (Absolute #) 0.15 (0-0.5); Granulocyte Absolute (ANC) 4.17 (1.4-6.9); Granulocytes % 72.9 % (36.0-66.0); Hematocrit 28.7 % (42-50); Hemoglobin 9.1 gm/dl (12.5-18.0); Lymphocyte (Absolute #) 0.92 (1.0-4.6); Lymphocytes % 16.1 % (24.0-44.0); Mean Cell Volume 92.6 fl (78-100); Mean Corpuscular Hgb Concent. 31.7 g/dl (32-36); Mean Platelet Volume 10.5 fl (6-9.5); Monocyte (Absolute #) 0.48 (0.0-1.3); Monocytes % 8.4 % (0.0-12.0); Platelet Count 169 K/mm3 (150-450); Red Cell Distribution Width 15.6 % (11.5-14.0); White Blood Count 5.7 K/mm3 (4.0-10.5)
[2017-11-05 06:22] LABS: Mean Corpuscular Hemoglobin 29.3 pg (26-32)
[2017-11-05] MEDS: Advair Hfa 230/21 Mcg COMMON CANISTER IH SCH ×2 (06:48→19:14)
[2017-11-05] MEDS: PROVENTIL 2.5 MG/3 ML NEB IH SCH ×2 (06:49→19:14)
[2017-11-05 07:44] LABS: MAGNESIUM 1.7 mg/dL (1.8-2.4); Potassium 3.3 mEq/L (3.5-5.1)
[2017-11-05] MEDS: DEXTROSE 5% IV SCH ×2 (08:02→19:45)
[2017-11-05] MEDS: VANCOCIN IV SCH ×2 (08:02→19:45)
[2017-11-05] MEDS: [UNRECOGNIZED DRUG - OTHER] IV SCH ×2 (08:02→19:45)
--- NOTE | 2017-11-05 08:39 | CONS ---
CONSULT DATE: 11/04/2017 HISTORY: The patient is a 62 year-old had a blood draw in his left basilic area he reports three to four weeks ago. The past two to three days increased redness to the area. He had x-ray that did not show any fracture or osteomyelitis. He had ultrasound show occluded thrombus in the basilic vein in that area. His white blood cell count is 6, hemoglobin 9, PLT 177,000. He was positive for opiates and benzodiazepine but no amphetamines. The patient had been soaking the area with some Neosporin but over the past couple of days increased redness and swelling. He denies any other trauma or self-injection in the area. PAST MEDICAL HISTORY: Hypertension, chronic obstructive pulmonary disease, sleep apnea, hypercholesterolemia, history transient ischemic attack in the past, history of some restless leg syndrome. He had some back problems in the past. 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 He had some thrombophlebitis and restless leg syndrome as well as history of depression, bipolar, reflux, osteoarthritis, degenerative disc disease as well as arthritis. PAST SURGICAL HISTORY: Appendectomy. Multiple back surgeries. Knee reconstruction. He had port placed in the past. MEDICATIONS: Ropinirole for restless leg, Atenolol, hydrochlorothiazide, moexipril, omeprazole, Simvastatin, baclofen, Furosemide, potassium chloride, Sertraline, clonidine as well as Belsomra. ALLERGIES: PENICILLIN, ASPIRIN, KEFLEX, NEURONTIN, TORADOL, NUBAIN, HALOTHANE. FAMILY HISTORY: Negative in regards to this problem. SOCIAL HISTORY: He denies smoking, denies alcohol abuse. REVIEW OF SYSTEMS: Twelve systems reviewed per admission assessment. Again, he denied any chest pain or palpitations. X-rays occluded thrombus basilic vein. No fracture or osteomyelitis. PHYSICAL EXAMINATION: GENERAL: No acute distress. He is wearing oxygen. HEENT: Sclera nonicteric. NECK: No JVD. CHEST: Equal excursion, nonlabored breathing. CVS: Regular rhythm. EXTREMITIES: Pertinent for the left upper extremity with some redness and acutely some redness in generalized medial aspect of his arm with some swelling. There is some point tenderness in that area. There is no griselda drainage. There is no griselda fluctuance currently. Palpable radial pulse. It does not look like there is any progression of the redness according to the marked area on the skin from yesterday. He is on IV Vancomycin according to the nursing staff. NEURO: Alert, moving extremities grossly symmetrically. IMPRESSION: Cellulitis left arm with indurated area antecubital area whether he had some sort of underlying area that would benefit from drainage or not is unclear at this point. He is not NPO right now. Will continue IV antibiotics tonight. If he fails to significantly improve tomorrow may consider opening the area up. General risk of bleeding or infection, possibility of increased infection may need longer wound incision. There is possibility we could open the area up and there may not be any significant findings underneath. He understands the plan. Will keep him on antibiotics tonight, hold his Lovenox in the morning until he decides on surgical intervention. If necessary repeat a CBC tomorrow. He understands that I will be tied up in [place] early in the day and will call and check on him. If it fails to improve will consider having OR schedule later in the afternoon. General risk of anesthesia, deep venous thrombosis, pulmonary embolism, pneumonia, aches, pains, risk of ongoing infection possibly requiring other procedures but not limited to, possibility of no improvement. He understands and agrees to the plan. Continue antibiotics and observation. If he fails to improve may consider whether he needs any operative debridement and/or drainage.
[2017-11-05] MEDS ORDERED: ZOFRAN ODT 4 MG PO PRN (09:37)
[2017-11-05] MEDS ORDERED: BACLOFEN 10 MG PO SCH (10:00)
[2017-11-05] MEDS ORDERED: MORPHINE SULFATE 100 MG PO SCH (10:00)
[2017-11-05] MEDS ORDERED: Lactated Ringers 2,000 ML IV ONE (10:14)
[2017-11-05] MEDS: LIORESAL 10 MG PO SCH ×3 (10:30→21:13)
[2017-11-05] MEDS: Ms Contin 100 MG PO SCH ×2 (10:30→21:12)
[2017-11-05] MEDS: hydroDIURIL 25 MG PO SCH (10:31)
[2017-11-05] MEDS: Catapres 0.1 MG PO SCH ×3 (10:31→21:13)
[2017-11-05] MEDS: UNIVASC PO SCH (10:31)
[2017-11-05] MEDS: Klor Con 10 MEQ PO SCH ×2 (10:31→21:13)
[2017-11-05] MEDS: Lasix 40 MG PO SCH (10:31)
[2017-11-05] MEDS: POTASSIUM CHLORIDE 20 mEq IN WATER 100ML 20 MEQ/100 ML BAG IV SCH ×2 (11:07→13:03)
[2017-11-05] MEDS: TENORMIN 50 MG PO SCH (12:11)
[2017-11-05] MEDS: Lactated Ringers 1,000 ML IV SCH ×2 (15:30→19:48)
[2017-11-05] MEDS ORDERED: DILAUDID 2 MG INJECTION ONE (17:40)
[2017-11-05] MEDS ORDERED: Sodium Chloride 0.9% 10 ML FLUSH Syringe PORT FLUSH PRN (18:00)
[2017-11-05] MEDS: ZOLOFT 50 MG TABLET PO SCH (19:02)
[2017-11-05] MEDS: MORPHINE SULFATE 4 MG INJ IV PRN ×2 (19:41→22:17)
[2017-11-05] MEDS: MORPHINE SULFATE 2 MG INJ IV PRN (20:44)
[2017-11-05] MEDS: LEVOFLOXACIN 750MG/150ML D5W 750 MG/150 ML BAG IV SCH (21:12)
[2017-11-05] MEDS ORDERED: Ambien 10 MG PO SCH (22:00)
[2017-11-05] MEDS ORDERED: ZOCOR 20MG PO SCH (22:00)
[2017-11-05] MEDS ORDERED: Protonix 40MG Tablet PO SCH (22:00)
[2017-11-05] MEDS ORDERED: Requip 0.5 MG PO SCH (22:00)
[2017-11-05] MEDS ORDERED: SUVOREXANT 15 MG PO SCH (22:00)
[2017-11-06] MEDS: NORCO 5/325 MG PO PRN ×2 (00:07→03:52)
[2017-11-06] MEDS: MORPHINE SULFATE 2 MG INJ IV PRN ×3 (02:01→07:19)
[2017-11-06] MEDS: Advair Hfa 230/21 Mcg COMMON CANISTER IH SCH (06:36)
[2017-11-06] MEDS: PROVENTIL 2.5 MG/3 ML NEB IH SCH (06:36)
[2017-11-06] MEDS ORDERED: NORCO 5/325 MG PO PRN (07:00)
[2017-11-06] MEDS: [UNRECOGNIZED DRUG - OTHER] IV SCH ×2 (07:19→17:54)
[2017-11-06] MEDS: DEXTROSE 5% IV SCH ×2 (07:19→17:54)
[2017-11-06] MEDS: VANCOCIN IV SCH ×2 (07:19→17:54)
[2017-11-06] MEDS ORDERED: MORPHINE SULFATE 2 MG INJ IV PRN (07:35)
[2017-11-06] MEDS ORDERED: MORPHINE SULFATE 4 MG INJ IV PRN (07:36)
[2017-11-06 08:36] LABS: Hematocrit 27.3 % (42-50); Hemoglobin 8.6 gm/dl (12.5-18.0); Mean Cell Volume 94.8 fl (78-100); Mean Corpuscular Hgb Concent. 31.5 g/dl (32-36); Mean Platelet Volume 9.5 fl (6-9.5); Platelet Count 151 K/mm3 (150-450); Red Blood Count 2.88 M/mm3 (4.1-5.6); Red Cell Distribution Width 15.8 % (11.5-14.0); White Blood Count 3.7 K/mm3 (4.0-10.5)
[2017-11-06 08:53] LABS: Mean Corpuscular Hemoglobin 29.8 pg (26-32)
--- NOTE | 2017-11-06 08:54 | OP ---
SURGERY DATE/TIME: 11/05/2017 1700 PREOPERATIVE DIAGNOSIS: Worsening cellulitis with new induration, question of underlying abscess or fasciitis left upper extremity. POSTOPERATIVE DIAGNOSIS: Worsening cellulitis with new induration, question of underlying abscess or fasciitis left upper extremity. Devitalized subcutaneous fat and underlying abscess left upper extremity antecubital area. PROCEDURE: Exploration with excisional debridement of 3 x 2 cm skin and underlying devitalized subcutaneous fat down to the level of the fascia with drainage of moderately large underlying abscess with culture, irrigation and packing. SURGEON: Dr. Matt Mejia. ANESTHESIA: General. ESTIMATED BLOOD LOSS: Minimal. INDICATIONS: As noted above. Risks and benefits explained in detail and not limited to and consent obtained. DESCRIPTION OF PROCEDURE AND FINDINGS: The patient is taken to the operating room. The site is confirmed preoperatively. General anesthesia introduced. He was prepped and draped in usual sterile fashion. After official time out and no disagreement with planned procedure, starting with a spindle-shaped excision pattern indurated skin excised. However this track was tunneling off more superior with some devitalized subcutaneous fat underneath. There was questionability of the fascia initially. Therefore this required opening this area up and debriding this 3 x 2 cm of skin and some devitalized subcutaneous fascia down to viable muscle and fascia underneath. The fascia itself appeared to be intact at the moment. There was a moderate amount of purulence and this was cultured. Copious amount of irrigation, careful palpation and use of hemostat and pressing on the surrounding tissue did not reveal any other tracks to drain at this point. Copious amount of irrigation irrigating until clear. Hemostasis controlled with some pinpoint cautery. Good hemostasis. The skin and subcu was then packed with Iodoform packing. Sterile dressing applied. The patient tolerated the procedure well. There were no immediate complications.
[2017-11-06 08:58] LABS: ALBUMIN 2.6 g/dL (3.4-5.0); ALKALINE PHOSPHATASE 172 U/L (46-116); ANION GAP -7.4 MEQ/L (5-15); BLOOD UREA NITROGEN 7 mg/dL (9-20); CHLORIDE 97 mEq/L (98-107); Calcium 8.3 mg/dL (8.5-10.1); Carbon Dioxide 34.1 mEq/L (21-32); Creatinine 1 0.84 mg/dl (0.55-1.30); EST GLOMERULAR FILTRATION RATE > 60 ML/MIN; Glucose 113 MG/DL (70-110); SGOT/AST 32 U/L (15-37); SGPT/ALT 33 U/L (12-78); SODIUM 127 mEq/L (136-145); Total Protein 6.4 gm/dL (6.4-8.2)
[2017-11-06] MEDS: Lasix 40 MG PO SCH (09:06)
[2017-11-06] MEDS: hydroDIURIL 25 MG PO SCH (09:06)
[2017-11-06] MEDS: Catapres 0.1 MG PO SCH ×2 (09:06→15:17)
[2017-11-06 09:07] LABS: Potassium 2.8 mEq/L (3.5-5.1)
[2017-11-06] MEDS: LIORESAL 10 MG PO SCH ×2 (09:07→15:17)
[2017-11-06] MEDS: Klor Con 10 MEQ PO SCH (09:07)
[2017-11-06] MEDS: Ms Contin 100 MG PO SCH (09:07)
[2017-11-06] MEDS: UNIVASC PO SCH (09:08)
[2017-11-06] MEDS: POTASSIUM CHLORIDE 20 mEq IN WATER 100ML 20 MEQ/100 ML BAG IV SCH ×2 (09:50→11:40)
[2017-11-06] MEDS ORDERED: ENOXAPARIN SODIUM SQ SCH ×2 (10:00)
[2017-11-06] MEDS: TENORMIN 50 MG PO SCH (11:47)
--- NOTE | 2017-11-06 12:09 | PCM.NOTE ---
Date and Time: 11/05/17 1208 Subjective Assessment: doing ok - Review of Systems Constitutional: No Fever, No Chills Eyes: No Symptoms Ears, Nose, & Throat: No Symptoms Respiratory: No Cough, No Short Of Breath Cardiac: No Chest Pain, No Edema, No Syncope Abdominal/Gastrointestinal: No Abdominal Pain, No Nausea, No Vomiting, No Diarrhea Genitourinary Symptoms: No Dysuria Musculoskeletal: No Back Pain, No Neck Pain Skin: No Rash Neurological: No Dizziness, No Focal Weakness, No Sensory Changes Psychological: No Symptoms Endocrine: No Symptoms Hematologic/Lymphatic: No Symptoms Immunological/Allergic: No Symptoms Objective Exam General Appearance: no apparent distress, alert Neurologic Exam: alert, oriented x 3, cooperative, normal mood/affect, nml cerebellar function, sensation nml, No motor deficits Skin Exam: normal color, warm, dry Eye Exam: PERRL, EOMI, eyes nml inspection Ears, Nose, Throat Exam: normal ENT inspection, pharynx normal, moist mucous membranes Neck Exam: normal inspection, non-tender, supple, full range of motion Respiratory Exam: normal breath sounds, lungs clear, No respiratory distress Cardiovascular Exam: regular rate/rhythm, normal heart sounds Gastrointestinal/Abdomen Exam: soft, No tenderness, No mass Extremity Exam: normal inspection, normal range of motion Back Exam: normal inspection, normal range of motion, No CVA tenderness, No vertebral tenderness Male Genitalia Exam: deferred Rectal Exam: deferred OBJECTIVE DATA Vital Signs: Vital Signs - 24 hr Temp Pulse Resp BP BP Pulse Ox 11/06/17 11:47 65 116/56 11/06/17 11:00 98.2 F 65 16 116/56 94 L 11/06/17 07:00 97.7 F 69 18 101/57 92 L 11/06/17 06:38 63 18 95 11/06/17 03:00 97.6 F 70 20 104/55 96 11/05/17 23:58 98.1 F 71 12 111/55 96 11/05/17 22:17 98.4 F 82 18 129/62 93 L 11/05/17 22:14 98.1 F 75 17 130/68 95 11/05/17 21:00 98.4 F 77 20 125/62 95 11/05/17 20:00 98.5 F 81 16 96/52 94 L 11/05/17 19:30 98.6 F 82 19 122/63 93 L 11/05/17 19:17 77 20 95 11/05/17 19:00 98.1 F 77 20 125/61 94 L 11/05/17 18:45 98.4 F 82 20 114/56 94 L 11/05/17 18:15 98.3 F 83 16 114/58 95 11/05/17 15:53 98.3 F 101 H 18 128/74 96 11/05/17 12:11 110 H 135/71 Oxygen-Last 24 hours O2 Percentage 4 Liters = 36% O2 Percentage 4 Liters = 36% O2 Percentage 4 Liters = 36% Pain Assessment - Last Documented Pain Intensity 8 Pain Scale Used 0-10 Pain Scale Intake and Output: Intake & Output 11/04/17 11/05/17 11/06/17 11/07/17 11:59 11:59 11:59 11:59 Intake Total 1633 4571 600 Output Total 700 2650 1150 Balance 933 1921 -550 Weight 112.763 kg 112.763 kg 112.763 kg Lab Results: Lab Results-Last 24 Hours 11/05/17 11/06/17 11/06/17 Range/Units 18:28 08:34 08:34 WBC 3.7 L (4.0-10.5) K/mm3 RBC 2.88 L (4.1-5.6) M/mm3 Hgb 8.6 L (12.5-18.0) gm/dl Hct 27.3 L (42-50) % MCV 94.8 (78-100) fl MCH 29.8 (26-32) pg MCHC 31.5 L (32-36) g/dl RDW 15.8 H (11.5-14.0) % Plt Count 151 (150-450) K/mm3 MPV 9.5 (6-9.5) fl Sodium 127 L (136-145) mEq/L Potassium 3.4 L 2.8 L* (3.5-5.1) mEq/L Chloride 97 L (98-107) mEq/L Carbon Dioxide 34.1 H (21-32) mEq/L Anion Gap -7.4 L (5-15) MEQ/L BUN 7 L (9-20) mg/dL Creatinine 0.84 (0.55-1.30) mg/dl Estimated GFR > 60 ML/MIN Glucose 113 H (70-110) MG/DL Calcium 8.3 L (8.5-10.1) mg/dL Total Bilirubin 0.60 (0.2-1.0) mg/dL AST 32 (15-37) U/L ALT 33 (12-78) U/L Alkaline Phosphatase 172 H (46-116) U/L Serum Total Protein 6.4 (6.4-8.2) gm/dL Albumin 2.6 L (3.4-5.0) g/dL Multi-Disciplinary Progress Notes: Multi-Disciplinary Progress Notes 11/06/17 11:10 Case Management Note by Tracey Ivy SPOKE WITH PT RE BEING LET GO FROM [facility] STATES HE ALREAD KNOWS. OFFERED HIM A LIST OF OTHER [facility] AGENCIES STATES HE DON'T WANT ANY AT THIS TIME. STATES HE WILL COME IN OUTPT FOR DRESSING CHANGES IF NEEDS TO WILL INFORM DR GARNICA. Initialized on 11/06/17 11:10 - END OF NOTE Assessment/Plan (1) Basilic vein thrombosis Current Visit: Yes Status: Acute Code(s): I82.619 - ACUTE EMBOLISM AND THROMBOSIS OF SUPERFIC VN UNSP UP EXTREM (2) Hypokalemia Current Visit: Yes Status: Acute Code(s): E87.6 - HYPOKALEMIA (3) Left arm cellulitis Current Visit: Yes Status: Acute Code(s): L03.114 - CELLULITIS OF LEFT UPPER LIMB (4) COPD (chronic obstructive pulmonary disease) Current Visit: Yes Status: Chronic Qualifiers: COPD type: unspecified COPD Qualified Code(s): J44.9 - Chronic obstructive pulmonary disease, unspecified (5) Chronic back pain Current Visit: No Status: Chronic Qualifiers: Back pain location: low back pain Code(s): M54.9 - DORSALGIA, UNSPECIFIED; G89.29 - OTHER CHRONIC PAIN (6) Chronic pain syndrome Current Visit: No Status: Chronic Code(s): G89.4 - CHRONIC PAIN SYNDROME
[2017-11-06] MEDS ORDERED: PHARMACY DOSING REQUIRED: VANCOMYCIN IV ONE (12:24)
[2017-11-06] MEDS: DILAUDID 2 MG INJECTION IV PRN ×2 (13:18→17:05)
[2017-11-06] MEDS ORDERED: DILAUDID 2 MG INJECTION IV ONE (15:37)
[2017-11-06] MEDS ORDERED: SUBLIMAZE 100 MCG/2 ML IV ONE (15:37)
[2017-11-06] MEDS ORDERED: Versed 2 MG/2 ML Injection IV ONE (15:37)
[2017-11-06] MEDS: ZOLOFT 50 MG TABLET PO SCH (17:05)
[2017-11-06 20:01] VITALS: BP 152/72; PULSE 74; O2SAT 94
[2017-11-06] MEDS ORDERED: Levofloxacin 500 MG Tablet PO SCH (22:00)
[2017-11-06] MEDS ORDERED: Levofloxacin 250MG Tablet PO SCH (22:00)
== END 2017-11-06 21:20 | disposition home or self-care (01) | DRG 603 ==
LOC: ED 19:09 → MED SURG 22:30
PROVIDERS: ADMIT General Practice; ATTEND General Practice
PROC: 0J9H3ZX Drainage of Left Lower Arm Subcutaneous Tissue and Fascia, Percutaneous Approach, Diagnostic (ICD-10-PCS; principal; 2017-11-05)
DX: L03.114 Cellulitis of left upper limb (principal); D64.9 Anemia, unspecified; E87.6 Hypokalemia; I82.619 Acute embolism and thrombosis of superficial veins of unspecified upper extremity; J44.9 Chronic obstructive pulmonary disease, unspecified; E78.00 Pure hypercholesterolemia, unspecified; I10 Essential (primary) hypertension; M54.9 Dorsalgia, unspecified; G89.29 Other chronic pain; K21.0 Gastro-esophageal reflux disease with esophagitis; F45.42 Pain disorder with related psychological factors; G47.30 Sleep apnea, unspecified; F12.90 Cannabis use, unspecified, uncomplicated; I50.9 Heart failure, unspecified; Z99.81 Dependence on supplemental oxygen; F31.9 Bipolar disorder, unspecified; M19.90 Unspecified osteoarthritis, unspecified site; K21.9 Gastro-esophageal reflux disease without esophagitis; Z86.73 Personal history of transient ischemic attack (TIA), and cerebral infarction without residual deficits; K75.89 Other specified inflammatory liver diseases; Z79.899 Other long term (current) drug therapy
CPT/HCPCS: 01710; 36000; 36415; 71045; 73080; 80048; 80053; 80202; 80307; 81002; 83605; 83735; 84100; 84132; 85025; 85027; 87040; 87070; 93971; 94640; 94760; 96360; 96374; 96375; 99285; J1170; J1200; J1642; J1650; J1956; J2250; J2270; J3010; J3370; J3475; J3480; A9270-GY

== ENCOUNTER 2019-01-18 19:10 | Emergency (ER) | payer MEDICARE ==
[2019-01-18] MEDS ORDERED: Ativan 2 MG/1 ML VIAL IV ONE (19:21)
[2019-01-18] MEDS ORDERED: solu-MEDROL 125 MG IV ONE (19:22)
--- NOTE | 2019-01-18 19:29 | ERPHSYRPT ---
- History of Present Illness Time Seen by Provider: 01/18/19 19:20 Source: patient, EMS Exam Limitations: no limitations Physician History: 63 y/o white male with chronic low back pain. pt fell over dog this am. pt has h /o back surgery. pt has morphine pain pump and a port in place. pts primary complaint is back spasms left greater than right. Timing/Duration: today Method of Injury: fall Quality: other (spasm) Back Pain Location: lumbar spine Back Pain Radiation: buttocks, upper legs (posteriorly) Severity of Pain-Max: moderate Severity of Pain-Current: moderate Associated Symptoms: muscle spasms Previous symptoms: same symptoms as today Allergies/Adverse Reactions: Penicillins Allergy (Intermediate, Verified 01/18/19 19:25) Swelling aspirin Allergy (Verified 01/18/19 19:25) Hives cephalexin monohydrate [From Keflex] Allergy (Verified 01/18/19 19:25) Swelling gabapentin [From Neurontin] Allergy (Verified 01/18/19 19:25) Hives ketorolac [From Toradol] Allergy (Verified 01/18/19 19:25) nalbuphine HCl [From Nubain] Allergy (Verified 01/18/19 19:25) Swelling states swell, increased blood pressure HALOTHANE Allergy (Mild, Uncoded 01/15/19 08:57) Hives varified on 04/17/15 Pt states "gives me medically induced hepatitis B" Home Medications: Ropinirole HCl 0.5 mg [Requip 0.5 MG] 0.5 mg PO HS 02/03/15 [History] Atenolol 25 mg PO LUNCH 05/04/16 [History] Hydrochlorothiazide 25 mg [hydroDIURIL 25 MG] 25 mg PO DAILY 05/04/16 [ History] Moexipril HCl 15 mg [Univasc 15 MG] 7.5 mg PO DAILY 05/04/16 [History] Omeprazole 20 MG [Prilosec 20 mg] 20 mg PO HS 05/04/16 [History] Simvastatin 40 mg [Zocor 40 mg] 40 mg PO HS 05/04/16 [History] Potassium Chloride 10 Meq Tab* [Klor Con 10 MEQ] 10 meq PO BID 03/27/17 [ History] Sertraline HCl 50 mg [Zoloft 50 mg Tablet] 100 mg PO DINNER 03/27/17 [ History] Clonidine HCl 0.1 mg PO TID 06/27/17 [History] Suvorexant [Belsomra] 15 mg PO HS 09/07/17 [History] Hx Tetanus, Diphtheria Vaccination/Date Given: Yes (4yrs ago) Hx Influenza Vaccination/Date Given: Yes (jul 2017) Hx Pneumococcal Vaccination/Date Given: Yes (jul 2017) - Review of Systems Constitutional: No Symptoms Eyes: No Symptoms Ears, Nose, & Throat: No Symptoms Respiratory: No Symptoms Cardiac: No Symptoms Abdominal/Gastrointestinal: No Symptoms Genitourinary Symptoms: No Symptoms Musculoskeletal: No Symptoms Skin: No Symptoms Neurological: No Symptoms Psychological: No Symptoms Endocrine: No Symptoms Hematologic/Lymphatic: No Symptoms Immunological/Allergic: No Symptoms All Other Systems: Reviewed and Negative - Past Medical History Pertinent Past Medical History: Yes Neurological History: TIA ENT History: No Pertinent History Cardiac History: High Cholesterol, Hypertension Respiratory History: COPD, Sleep Apnea Endocrine Medical History: No Pertinent History Musculoskeletal History: Arthritis, Degenerative Disk Disease, Osteoarthritis GI Medical History: GERD History: No Pertinent History Psycho-Social History: Bipolar, Depression Male Reproductive Disorders: No Pertinent History Other Medical History: 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 TIA. Thrombophlebitis. RLS - Past Surgical History Past Surgical History: Yes Neuro Surgical History: No Pertinent History Cardiac: Vascular Surgery Respiratory: No Pertinent History Gastrointestinal: Appendectomy Genitourinary: No Pertinent History Musculoskeletal: Orthopedic Surgery Male Surgical History: No Pertinent History Other Surgical History: MULTI BACK SURG, left knee reconstruction. cvl port placement, pain pump - Social History Smoking Status: Never smoker Exposure to second hand smoke: Yes Alcohol Use: None Drug Use: marijuana Patient Lives Alone: No Significant Family History: no pertinent family hx - Nursing Vital Signs Nursing Vital Signs: Initial Vital Signs Temperature 97.5 F 01/18/19 19:11 Pulse Rate 74 01/18/19 19:11 Respiratory Rate 18 01/18/19 19:11 Blood Pressure 174/97 01/18/19 19:11 O2 Sat by Pulse Oximetry 97 01/18/19 19:11 Pain Scale Pain Intensity 9 - Physical Exam General Appearance: mild distress, alert, anxiety Eye Exam: PERRL/EOMI Ears, Nose, Throat Exam: normal ENT inspection, moist mucous membranes Neck Exam: normal inspection, non-tender, supple, full range of motion Respiratory Exam: normal breath sounds Rectal Exam: not done Back Exam: normal inspection, decreased range of motion, muscle spasm, No CVA tenderness, No vertebral tenderness Extremity Exam: normal inspection, normal range of motion, pelvis stable Neurologic Exam: alert, oriented x 3, cooperative, television director II-XII nml as tested Skin Exam: normal color, warm, dry Lymphatic Exam: No adenopathy SpO2 Interpretation: normal O2 Delivery: Room Air - Course Nursing assessment & vital signs reviewed: Yes Ordered Tests: Active Orders 24 hr Category Date Time Status LUMBAR LIMITED (2 OR 3 VIEWS) Stat Exams 01/18/19 19:21 Taken Medication Summary Discontinued Medications Generic Name Dose Route Start Last Admin Trade Name Ajq PRN Reason Stop Dose Admin Lorazepam 2 mg 01/18/19 19:21 Ativan 2 Mg/1 Ml Vial IV 01/18/19 19:22 STAT ONE Lorazepam Confirm 01/18/19 19:40 Ativan 2 Mg/1 Ml Vial Administered 01/18/19 19:41 Dose 2 mg .ROUTE .STK-MED ONE Lorazepam 2 mg 01/18/19 20:01 01/18/19 20:10 Ativan 2 Mg/1 Ml Vial IM 01/18/19 20:02 2 mg STAT ONE Administration Methylprednisolone Sodium Succinate 125 mg 01/18/19 19:22 Solu-Medrol 125 Mg IV 01/18/19 19:23 STAT ONE Methylprednisolone Sodium Succinate Confirm 01/18/19 19:40 Solu-Medrol 125 Mg Administered 01/18/19 19:41 Dose 125 mg .ROUTE .STK-MED ONE Methylprednisolone Sodium Succinate 125 mg 01/18/19 20:01 01/18/19 20:11 Solu-Medrol 125 Mg IM 01/18/19 20:02 125 mg STAT ONE Administration - Progress Progress: improved Progress Note: 01/18/19 20:21 xray lumbar spine-no acute fx or subluxation Counseled pt/family regarding: diagnosis, need for follow-up, rad results - Departure Time of Disposition: 19:38 Departure Disposition: Home Clinical Impression: Fall, Spasm of back muscles Condition: Stable Critical Care Time: No Referrals: NAHUN,HUNG, MD [Primary Care Provider] - Additional Instructions: take all your medications as prescribed. follow up with primary doctor for further management Prescriptions: Carisoprodol 350 mg [Soma 350 mg] 350 mg PO Q8H PRN PRN #10 tablet PRN Reason: Muscle Spasms Methylprednisolone Packet [Medrol Dosepack] 4 mg PO UD #1 packet
[2019-01-18] MEDS ORDERED: solu-MEDROL 125 MG ONE (19:40)
[2019-01-18] MEDS ORDERED: Ativan 2 MG/1 ML VIAL ONE (19:40)
[2019-01-18] MEDS ORDERED: Ativan 2 MG/1 ML VIAL IM ONE (20:01)
[2019-01-18] MEDS ORDERED: solu-MEDROL 125 MG IM ONE (20:01)
[2019-01-18 20:52] VITALS: BP 132/95; PULSE 72; O2SAT 95
--- NOTE | 2019-01-19 08:43 | XRAY ---
Indication: Back pain. Comparison: April 25, 2017. 3 views of the lumbar spine demonstrates new left lower back pain pump. Remaining lumbar spine unchanged again demonstrating osteopenia, L3-L5 fusion with intact L3-L4 spinal hardware, multilevel degenerative spondylosis, and minimal aortic calcifications. No acute findings.
== END 2019-01-18 20:51 | disposition home or self-care (01) ==
LOC: ED 19:10
DX: M62.830 Muscle spasm of back (principal); I10 Essential (primary) hypertension; E78.00 Pure hypercholesterolemia, unspecified; K21.9 Gastro-esophageal reflux disease without esophagitis; J44.9 Chronic obstructive pulmonary disease, unspecified; G47.30 Sleep apnea, unspecified; F31.9 Bipolar disorder, unspecified; F41.9 Anxiety disorder, unspecified; Z86.73 Personal history of transient ischemic attack (TIA), and cerebral infarction without residual deficits; F12.90 Cannabis use, unspecified, uncomplicated; M54.5 Low back pain; G89.29 Other chronic pain; Z79.899 Other long term (current) drug therapy
CPT/HCPCS: 72100; 96372; 99284; J2060; J2930

== ENCOUNTER 2020-11-16 10:31 | Emergency (ER) | payer MEDICARE ==
[2020-11-16] MEDS ORDERED: Catapres 0.1 MG PO ONE (10:38)
[2020-11-16 10:40] VITALS: O2SAT 96
[2020-11-16] MEDS ORDERED: Catapres 0.1 MG ONE (10:46)
--- NOTE | 2020-11-16 11:17 | ERPHSYRPT ---
- History of Present Illness Source: patient Exam Limitations: no limitations Patient Subjective Stated Complaint: HTN Triage Nursing Assessment: Patient brought down to ED via w/c per outpatient surgery staff. Patient was getting port flushed upon discharge his blood pres sure was 190/80. Patient A+O X3. Patient's skin pink, warm and dry. Patient complains of his blood pressure getting high the past few days. Patient states he has a bad tooth in the left lower causing pain 6/10. Patient also complains of intermittent chest pain 5/10. Lungs clear a/p stephan. No edema noted. Heart tones audible. Physician History: 65 yo wm who was getting port flushed in outpt surgery and found to have elevated BP. Pt states that he has a global FARIA wo focal weakness/fever. He has had a chronic cough but has been a little more dyspnic x 3wks. Pt had CV19 in 07/23. He denies chest pain/vomiting/diarrhea/melena/hematochezia. Pt states that he has been taking his BP meds. He is currently having dental pain. Timing/Duration: today Severity: moderate Associated Symptoms: nausea, shortness of breath, cough, headaches, No vomiting, No abdominal pain, No heartburn, No diaphoresis, No chills, No chest pain, No fever, No loss of appetite, No malaise, No rash, No syncope, No seizure, No weakness Allergies/Adverse Reactions: cephalexin monohydrate [From Keflex] Allergy (Severe, Verified 11/16/20 10:40) Swelling nalbuphine HCl [From Nubain] Allergy (Severe, Verified 11/16/20 10:40) Swelling states swell, increased blood pressure Penicillins Allergy (Intermediate, Verified 11/16/20 10:40) Swelling aspirin Allergy (Mild, Verified 11/16/20 10:40) Hives gabapentin [From Neurontin] Allergy (Mild, Verified 11/16/20 10:40) Hives ketorolac [From Toradol] Allergy (Verified 11/16/20 10:40) HALOTHANE Allergy (Mild, Uncoded 11/16/20 10:40) Hives varified on 04/17/15 Pt states "gives me medically induced hepatitis B" Home Medications: Ropinirole HCl 0.5 mg [Requip 0.5 MG] 0.5 mg PO HS 02/03/15 [History] Atenolol 25 mg PO LUNCH 05/04/16 [History] Moexipril HCl 15 mg [Univasc 15 MG] 7.5 mg PO DAILY 05/04/16 [History] Omeprazole 20 MG [Prilosec 20 mg] 40 mg PO HS 05/04/16 [History] Simvastatin 40 mg [Zocor 40 mg] 40 mg PO HS 05/04/16 [History] Potassium Chloride 10 Meq Tab* [Klor Con 10 MEQ] 10 meq PO BID 03/27/17 [History] Sertraline HCl 50 mg [Zoloft 50 mg Tablet] 100 mg PO DINNER 03/27/17 [History] Clonidine HCl 0.1 mg PO TID 06/27/17 [History] Suvorexant [Belsomra] 15 mg PO HS 09/07/17 [History] Albuterol Common Canister [Ventolin Common Canister] 2 puff IH QID 05/12/20 [History] Budesonide/Formoterol Fumarate [Symbicort 80-4.5 Mcg Inhaler] 2 puff IH DAILY 05/12/20 [History] Hx Tetanus, Diphtheria Vaccination/Date Given: Yes (4yrs ago) Hx Influenza Vaccination/Date Given: Yes (jul 2017) Hx Pneumococcal Vaccination/Date Given: Yes (jul 2017) Travel Risk - International Travel Have you traveled outside of the country in past 3 weeks: No - Coronavirus Screening Are you exhibiting any of the following symptoms?: No Close contact with a COVID-19 positive Pt in past 14-21 Days: No - Review of Systems Constitutional: No Symptoms Eyes: No Symptoms Ears, Nose, & Throat: No Symptoms, Mouth Pain Respiratory: Cough, Dyspnea Cardiac: No Symptoms Abdominal/Gastrointestinal: No Symptoms, Nausea Genitourinary Symptoms: No Symptoms Musculoskeletal: No Symptoms, Back Pain Skin: No Symptoms Neurological: No Symptoms Psychological: No Symptoms Endocrine: No Symptoms Hematologic/Lymphatic: No Symptoms Immunological/Allergic: No Symptoms - Past Medical History Pertinent Past Medical History: Yes Neurological History: TIA ENT History: No Pertinent History Cardiac History: High Cholesterol, Hypertension Respiratory History: COPD, Sleep Apnea Endocrine Medical History: No Pertinent History Musculoskeletal History: Arthritis, Degenerative Disk Disease, Osteoarthritis GI Medical History: GERD History: No Pertinent History Psycho-Social History: Bipolar, Depression Male Reproductive Disorders: No Pertinent History Other Medical History: 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 TIA. Thrombophlebitis. RLS - Past Surgical History Past Surgical History: Yes Neuro Surgical History: No Pertinent History Cardiac: Vascular Surgery Respiratory: No Pertinent History Gastrointestinal: Appendectomy Genitourinary: No Pertinent History Musculoskeletal: Orthopedic Surgery Male Surgical History: No Pertinent History Other Surgical History: MULTI BACK SURG, left knee reconstruction. cvl port placement, pain pump - Social History Smoking Status: Never smoker Exposure to second hand smoke: No Alcohol Use: None Drug Use: marijuana Patient Lives Alone: No Significant Family History: no pertinent family hx - Nursing Vital Signs Nursing Vital Signs: Initial Vital Signs Temperature 98.2 F 11/16/20 10:32 Pulse Rate 58 L 11/16/20 10:32 Respiratory Rate 18 11/16/20 10:32 Blood Pressure 219/101 11/16/20 10:32 O2 Sat by Pulse Oximetry 96 11/16/20 10:32 Pain Scale Pain Intensity 4 - Physical Exam General Appearance: no apparent distress Eye Exam: PERRL/EOMI, eyes nml inspection Ears, Nose, Throat Exam: normal ENT inspection, TMs normal, pharynx normal, moist mucous membranes, tonsillar exudate Neck Exam: normal inspection, non-tender, supple, No meningismus, No mass, No Brudzinski, No Kernig's, No carotid bruit Respiratory Exam: normal breath sounds, lungs clear, airway intact, No respiratory distress Cardiovascular Exam: regular rate/rhythm, normal heart sounds, normal peripheral pulses, No murmur Gastrointestinal/Abdomen Exam: soft, normal bowel sounds, No tenderness Back Exam: normal inspection, normal range of motion, No CVA tenderness, No vertebral tenderness Extremity Exam: normal inspection, normal range of motion, pelvis stable, No pedal edema, No swelling Neurologic Exam: alert, oriented x 3, cooperative, nutrient management specialist II-XII nml as tested, normal mood/affect, nml cerebellar function, nml station & gait, sensation nml, No motor deficits, No sensory deficit Skin Exam: normal color, warm, dry, No rash Lymphatic Exam: No adenopathy SpO2 Interpretation: normal SpO2: 96 O2 Delivery: Room Air - Course Nursing assessment & vital signs reviewed: Yes EKG Interpreted by Me: RATE (NSR/LVH/Normal QT-QTc/Tall T waves/No ST changes) - Radiology Exams Chest X-ray Interpretation: Discussed w/ radiologist, Negative - CT Exams Head CT Interpretation: Negative, Discussed w/radiologist Ordered Tests: Active Orders 24 hr Category Date Time Status EKG-ER Only STAT Care 11/16/20 11:05 Completed CHEST 1 VIEW (PORTABLE) Stat Exams 11/16/20 11:24 Completed HEAD WITHOUT CONTRAST [CT] Stat Exams 11/16/20 11:04 Completed CBC W DIFF Stat Lab 11/16/20 11:17 Completed CMP Stat Lab 11/16/20 11:17 Completed NT PRO BNP Stat Lab 11/16/20 11:17 Completed TROPONIN Q3H Lab 11/16/20 11:17 Completed TROPONIN Q3H Lab 11/16/20 14:15 Ordered TROPONIN Q3H Lab 11/16/20 17:15 Ordered TROPONIN Q3H Lab 11/16/20 20:15 Ordered TROPONIN Q3H Lab 11/16/20 23:15 Ordered Medication Summary Discontinued Medications Generic Name Dose Route Start Last Admin Trade Name Freq PRN Reason Stop Dose Admin Clonidine 0.2 mg 11/16/20 10:38 11/16/20 10:46 Catapres 0.1 Mg PO 11/16/20 10:39 0.2 mg STAT ONE Administration Clonidine Confirm 11/16/20 10:46 Catapres 0.1 Mg Administered 11/16/20 10:47 Dose 0.2 mg .ROUTE .STK-MED ONE Heparin Sodium (Beef Lung) Confirm 11/16/20 12:00 Heparin Lock Flush 100 Units/Ml 5ml Syringe Administered 11/16/20 12:01 Dose 500 units .ROUTE .STK-MED ONE Heparin Sodium (Beef Lung) 500 units 11/16/20 11:00 11/16/20 11:30 Heparin Lock Flush 100 Units/Ml 5ml Syringe PORT FLUSH 12/16/20 10:59 500 units PRN PRN Administration IV PORT FLUSH Lab/Rad Data: Laboratory Result Diagrams 11/16/20 11:17 11/16/20 11:17 Laboratory Results 11/16/20 11/16/20 11/16/20 Range/Units 11:17 11:17 11:17 WBC 7.7 (4.0-10.5) K/mm3 RBC 4.57 (4.1-5.6) M/mm3 Hgb 13.0 (12.5-18.0) gm/dl Hct 39.8 L (42-50) % MCV 87.1 (78-100) fl MCH 28.4 (26-32) pg MCHC 32.7 (32-36) g/dl RDW 14.7 H (11.5-14.0) % Plt Count 257 (150-450) K/mm3 MPV 9.8 (7.5-11.0) fl Gran % 75.6 H (36.0-66.0) % Eos # (Auto) 0.13 (0-0.5) Absolute Lymphs (auto) 1.11 (1.0-4.6) Absolute Monos (auto) 0.62 (0.0-1.3) Lymphocytes % 14.4 L (24.0-44.0) % Monocytes % 8.0 (0.0-12.0) % Eosinophils % 1.7 (0.00-5.0) % Basophils % 0.3 (0.0-0.4) % Absolute Granulocytes 5.85 (1.4-6.9) Basophils # 0.02 (0-0.4) Sodium 132 L (137-145) mmol/L Potassium 4.3 (3.5-5.1) mmol/L Chloride 96 L (98-107) mmol/L Carbon Dioxide 30 (22-30) mmol/L Anion Gap 10.0 (5-15) MEQ/L BUN 12 (9-20) mg/dL Creatinine 0.68 (0.66-1.25) mg/dL Estimated GFR > 60.0 ML/MIN Glucose 122 H (74-106) mg/dL Calcium 9.2 (8.4-10.2) mg/dL Total Bilirubin 0.90 (0.2-1.3) mg/dL AST 70 H (17-59) U/L ALT 49 (0-50) U/L Alkaline Phosphatase 149 H (38-126) U/L Troponin I < 0.012 (0.000-0.034) ng/mL NT-Pro-B Natriuret Pep 457 (0-900) pg/mL Serum Total Protein 8.6 H (6.3-8.2) g/dL Albumin 4.4 (3.5-5.0) g/dL - Progress Progress Note: 11/16/20 11:58 Pt's FARIA resolved w decreasing BP Counseled pt/family regarding: lab results, diagnosis, need for follow-up, rad results - Departure Departure Disposition: Extended Care Facility Clinical Impression: Headache, Hypertensive urgency Condition: Stable Critical Care Time: No Referrals: HUNG GARNICA MD [Primary Care Provider] - Instructions: Malignant Hypertension (DC) Additional Instructions: Follow up with Dr. Garnica in 1-2 days Return to ER for worsening headache/focal weakness/chest pain
[2020-11-16 11:22] LABS: Absolute Neutrophil Ct (ANC) 5.85 (1.4-6.9); BASOPHIL % 0.3 % (0.0-0.4); Basophil (Absolute #) 0.02 (0-0.4); Eosinophil % 1.7 % (0.00-5.0); Eosinophil (Absolute #) 0.13 (0-0.5); Hematocrit 39.8 % (42-50); Lymphocyte (Absolute #) 1.11 (1.0-4.6); Lymphocytes % 14.4 % (24.0-44.0); Mean Cell Volume 87.1 fl (78-100); Mean Corpuscular Hemoglobin 28.4 pg (26-32); Mean Corpuscular Hgb Concent. 32.7 g/dl (32-36); Mean Platelet Volume 9.8 fl (7.5-11.0); Monocyte (Absolute #) 0.62 (0.0-1.3); Neutrophil % 75.6 % (36.0-66.0); Platelet Count 257 K/mm3 (150-450); Red Blood Count 4.57 M/mm3 (4.1-5.6); Red Cell Distribution Width 14.7 % (11.5-14.0); White Blood Count 7.7 K/mm3 (4.0-10.5)
--- NOTE | 2020-11-16 11:33 | XRAY ---
Indication: Frontal headache. Elevated blood pressure. Multiple contiguous axial images obtained through the head without contrast. Comparison: September 07, 2017. Normal appearing brain parenchyma, ventricles, and bony calvarium. Visualized paranasal sinuses and mastoid air cells are clear. Impression: Continued normal CT head without contrast exam.
--- NOTE | 2020-11-16 11:34 | XRAY ---
Indication: Short of breath and cough. Covid 19 in July 2020. Comparison: November 03, 2017. Portable apical lordotic chest less inflated and remains clear. Heart is not enlarged with stable left Port-A-Cath. Bony thorax intact again with mild degenerative changes. Impression: Nonacute underinflated chest with chronic features.
[2020-11-16 11:43] LABS: ALBUMIN 4.4 g/dL (3.5-5.0); ALKALINE PHOSPHATASE 149 U/L (38-126); BLOOD UREA NITROGEN 12 mg/dL (9-20); CHLORIDE 96 mmol/L (98-107); Calcium 9.2 mg/dL (8.4-10.2); Carbon Dioxide 30 mmol/L (22-30); Creatinine 1 0.68 mg/dL (0.66-1.25); EST GLOMERULAR FILTRATION RATE > 60.0 ML/MIN; Glucose 122 mg/dL (74-106); NT PRO BNP 457 pg/mL (0-900); Potassium 4.3 mmol/L (3.5-5.1); SGOT/AST 70 U/L (17-59); SGPT/ALT 49 U/L (0-50); SODIUM 132 mmol/L (137-145); Total Protein 8.6 g/dL (6.3-8.2)
[2020-11-16 12:11] VITALS: BP 155/88; PULSE 65
== END 2020-11-16 12:07 | disposition home or self-care (01) ==
LOC: ED 10:31
DX: R51.9 Headache, unspecified (principal); I16.0 Hypertensive urgency; Z79.899 Other long term (current) drug therapy; E78.00 Pure hypercholesterolemia, unspecified; I10 Essential (primary) hypertension
CPT/HCPCS: 36415; 70450; 71045; 80053; 83880; 84484; 85025; 93005; 99284; J1642; A9270-GY

== ENCOUNTER 2021-02-12 10:20 | Emergency (ER) | payer MEDICARE ==
[2021-02-12] MEDS ORDERED: XYLOCAINE 1% HCL 20 ML MDV ONE (10:29)
[2021-02-12 10:34] VITALS: O2SAT 98
[2021-02-12] MEDS ORDERED: TORAdol 30 mg Injection IM ONE (10:35)
[2021-02-12] MEDS ORDERED: TORAdol 30 mg Injection ONE (10:38)
[2021-02-12] MEDS ORDERED: HYDROCODONE-ACETAMIN 10-325 MG PO PRN (10:41)
--- NOTE | 2021-02-12 10:42 | ERPHSYRPT ---
- History of Present Illness Source: patient Exam Limitations: no limitations Patient Subjective Stated Complaint: Pt tripped and hit his head on a rolling tool box injuring his right latter-day causing a 2.5 cm laceration and some swelling, pt also injured his 4th knuckle on his left hand at the base of the finger Triage Nursing Assessment: Pt brought to the ER by EMS, hypertensive, c/o of his feet tingling, pain in left neck, left hand, 2.5 cm laceration to the right te mple/forehead, denies blood thinners, denies LOC, pulses normal, pupils PERRL, rates pain 07/13 Physician History: 65 yo wm slipped and fell at home hitting his head on a cabinet. Pt ia A&O x3 upon arrival w C-collar in place. Occurred: just prior to arrival Reason for Fall: slipped, tripped Injuries/Pain Location: head, neck Loss of Consciousness: dazed Quality: aching Severity of Pain-Max: severe Severity of Pain-Current: severe Modifying Factors: Improves With: movement Associated Symptoms (Fall): headache, neck pain, No abdominal pain, No back pain, No confusion, No chest pain, No dizziness, No extremity injury, No lightheadedness, No muscle spasms, No nausea, No ringing in ears, No seizures, No shortness of breath, No slurred speech, No trouble walking, No vomiting, No vision changes Allergies/Adverse Reactions: cephalexin monohydrate [From Keflex] Allergy (Severe, Verified 02/12/21 10:34) Swelling nalbuphine HCl [From Nubain] Allergy (Severe, Verified 02/12/21 10:34) Swelling states swell, increased blood pressure Penicillins Allergy (Intermediate, Verified 02/12/21 10:34) Swelling aspirin Allergy (Mild, Verified 02/12/21 10:34) Hives gabapentin [From Neurontin] Allergy (Mild, Verified 02/12/21 10:34) Hives ketorolac [From Toradol] Allergy (Verified 02/12/21 10:34) HALOTHANE Allergy (Mild, Uncoded 02/12/21 10:34) Hives varified on 04/17/15 Pt states "gives me medically induced hepatitis B" Home Medications: Ropinirole HCl 0.5 mg [Requip 0.5 MG] 0.5 mg PO HS 02/03/15 [History] Atenolol 25 mg PO LUNCH 05/04/16 [History] Moexipril HCl 15 mg [Univasc 15 MG] 7.5 mg PO DAILY 05/04/16 [History] Omeprazole 20 MG [Prilosec 20 mg] 40 mg PO HS 05/04/16 [History] Simvastatin 40 mg [Zocor 40 mg] 40 mg PO HS 05/04/16 [History] Potassium Chloride 10 Meq Tab* [Klor Con 10 MEQ] 10 meq PO BID 03/27/17 [History] Sertraline HCl 50 mg [Zoloft 50 mg Tablet] 100 mg PO DINNER 03/27/17 [History] Clonidine HCl 0.1 mg PO TID 06/27/17 [History] Suvorexant [Belsomra] 15 mg PO HS 09/07/17 [History] Albuterol Common Canister [Ventolin Common Canister] 2 puff IH QID 05/12/20 [History] Tiotropium Br/Olodaterol HCl [Stiolto Respimat Inhal [place]] 4 gm IH DAILY 12/25/20 [History] Hx Tetanus, Diphtheria Vaccination/Date Given: Yes Hx Influenza Vaccination/Date Given: Yes (jul 2017) Hx Pneumococcal Vaccination/Date Given: Yes (jul 2017) Travel Risk - International Travel Have you traveled outside of the country in past 3 weeks: No - Coronavirus Screening Are you exhibiting any of the following symptoms?: No Close contact with a COVID-19 positive Pt in past 14-21 Days: No - Vaccine Status Have you recieved a Covid-19 vaccination: Yes [employer] Librarian: Moderna - Vaccination Dates Date of 2cond Vaccination (if applicable): 02/17/2021 - Review of Systems Constitutional: No Symptoms Eyes: No Symptoms Ears, Nose, & Throat: No Symptoms Respiratory: No Symptoms Cardiac: No Symptoms Abdominal/Gastrointestinal: No Symptoms Musculoskeletal: Neck Pain Skin: No Symptoms Neurological: Headache Psychological: No Symptoms Endocrine: No Symptoms Hematologic/Lymphatic: No Symptoms Immunological/Allergic: No Symptoms - Past Medical History Pertinent Past Medical History: Yes Neurological History: TIA ENT History: No Pertinent History Cardiac History: High Cholesterol, Hypertension Respiratory History: COPD, Sleep Apnea Endocrine Medical History: No Pertinent History Musculoskeletal History: Arthritis, Degenerative Disk Disease, Osteoarthritis GI Medical History: GERD History: No Pertinent History Psycho-Social History: Bipolar, Depression Male Reproductive Disorders: No Pertinent History Other Medical History: 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 TIA. Thrombophlebitis. RLS - Past Surgical History Past Surgical History: Yes Neuro Surgical History: No Pertinent History Cardiac: Vascular Surgery Respiratory: No Pertinent History Gastrointestinal: Appendectomy Genitourinary: No Pertinent History Musculoskeletal: Orthopedic Surgery Male Surgical History: No Pertinent History Other Surgical History: MULTI BACK SURG, left knee reconstruction. cvl port placement, pain pump - Social History Smoking Status: Never smoker Exposure to second hand smoke: No Alcohol Use: None Drug Use: marijuana Patient Lives Alone: No Significant Family History: no pertinent family hx - Nursing Vital Signs Nursing Vital Signs: Initial Vital Signs Temperature 98.5 F 02/12/21 10:22 Pulse Rate 78 02/12/21 10:22 Blood Pressure 203/93 02/12/21 10:22 O2 Sat by Pulse Oximetry 98 02/12/21 10:22 Pain Scale Pain Intensity 4 - Lisbeth Coma Score Best Eye Response (Lisbeth): (4) open spontaneously Best Verbal Response (Lisbeth): (5) oriented Best Motor Response ([place]): (6) obeys commands Lisbeth Total: 15 - Physical Exam General Appearance: no apparent distress Head Injury: lacerations (R glabellar laceration) Eye Exam: PERRL/EOMI, eyes nml inspection ENT Exam: airway nml, evidence of ENT injury Neck Exam: trachea midline, tenderness (C-spine TTP) Respiratory/Chest Exam: normal breath sounds, No chest tenderness, No respiratory distress, No ecchymosis, No crepitus Cardiovascular Exam: normal heart sounds, regular rate/rhythm, normal peripheral pulses, No murmur Gastrointestinal Exam: soft, normal bowel sounds, No tenderness Back Exam: normal inspection (No new T or L-spine ttp) Extremity Exam: pelvis stable, other (L 5th MCP joint ttp) Neurologic Exam: alert, oriented x 3, cooperative, director reactor projects II-XII nml as tested, normal mood/affect Skin Exam: normal color, warm, dry SpO2 Interpretation: normal SpO2: 98 O2 Delivery: Room Air Procedures - Laceration/Wound Repair Face Wound Location: face (R glabella) Wound's Depth, Shape: superficial Wound Explored: clean Irrigated: No Hibiclens Prep: Yes Anesthesia: local, 1% Lidocaine Wound Repaired With: sutures Suture Size/Type: 4-0 (4.0 Ethilon x6) Number of Sutures: 6 Layer Closure?: No Sterile Dressing Applied?: Yes - Course Nursing assessment & vital signs reviewed: Yes - Radiology Exams Hand X-ray Interpretation: Discussed w/ radiologist (L hand neg per Rad) - CT Exams Cervical Spine CT Interpretation: Discussed w/radiologist (CT head/C-spine neg per Rad) Ordered Tests: Active Orders 24 hr Category Date Time Status CERVICAL SPINE WO CONTRAST [CT] Stat Exams 02/12/21 10:33 Completed HAND (MINIMUM 3 VIEWS) Stat Exams 02/12/21 10:55 Completed HEAD WITHOUT CONTRAST [CT] Stat Exams 02/12/21 10:33 Completed Medication Summary Discontinued Medications Generic Name Dose Route Start Last Admin Trade Name Freq PRN Reason Stop Dose Admin Hydrocodone Bitart/Acetaminophen 1 tablet 02/12/21 10:41 Hydrocodone-Acetamin 10-325 Mg PO 02/17/21 10:40 Q4H PRN PRN PAIN Ketorolac Tromethamine 30 mg 02/12/21 10:35 02/12/21 10:43 Toradol 30 Mg Injection IM 02/12/21 10:36 Not Given STAT ONE Ketorolac Tromethamine Confirm 02/12/21 10:38 Toradol 30 Mg Injection Administered 02/12/21 10:39 Dose 30 mg .ROUTE .STK-MED ONE Lidocaine HCl Confirm 02/12/21 10:29 Xylocaine 1% Hcl 20 Ml Mdv Administered 02/12/21 10:30 Dose 1 ml .ROUTE .STK-MED ONE - Progress Progress: improved Progress Note: 02/12/21 16:38 Pt refused Toradol and all pain meds Counseled pt/family regarding: need for follow-up, rad results - Departure Departure Disposition: Home Clinical Impression: Fall, Forehead laceration, Cervical strain, acute, Hand contusion Condition: Stable Critical Care Time: No Referrals: HUNG GARNICA MD [Primary Care Provider] - Instructions: Contusion (DC), Minor Head Injury (DC), Cervical Muscle Strain (DC) Additional Instructions: Ice to contused areas for 12-24 hours Keep laceration dry for 48 hours, then wash 1-2 times a day with soap/water Sutures out in 10 days Watch for signs of infection-redness/pain/pus/temperature greater than 100.5
--- NOTE | 2021-02-12 11:06 | XRAY ---
Indication: Head injury following fall. Multiple contiguous axial images obtained through the head without contrast. Comparison: November 16, 2020. Normal appearing brain parenchyma, ventricles, and bony calvarium. New right frontal temporal scalp laceration. Impression: New right frontotemporal scalp laceration. No underlying fracture or acute intracranial abnormalities.
--- NOTE | 2021-02-12 11:08 | XRAY ---
Indication: Neck pain following fall. Multiple contiguous axial images obtained through the cervical spine. Sagittal and coronal reformatted images obtained. Comparison: September 07, 2017. Axial images remain negative for acute fracture, suspicious bony lesions, or spinal canal stenosis. There remains minimal/mild C4-C7 degenerative endplate spurring and mild multilevel bilateral degenerative facet arthropathy. Sagittal and coronal reformatted images again demonstrates normal alignment with C4-C7 disc space narrowing. No acute compression fracture, subluxation, or jumped facet. Normal appearing craniocervical junction. Visualized noncontrasted soft tissues again demonstrates mild bilateral carotid calcifications and partially visualized left central venous axis catheter. Lung apices are clear. Impression: 1. Continued negative for acute fracture/subluxation. 2. Stable multilevel degenerative changes.
--- NOTE | 2021-02-12 11:11 | XRAY ---
Indication: Pain following fall. Comparison: None 3 view left hand demonstrates mild osteopenia. No other bony, articular, or soft tissue abnormalities.
[2021-02-12 11:27] VITALS: BP 170/98; PULSE 77
== END 2021-02-12 11:30 | disposition home or self-care (01) ==
LOC: ED 10:20
DX: S01.81XA Laceration without foreign body of other part of head, initial encounter (principal); S60.222A Contusion of left hand, initial encounter; W01.198A Fall on same level from slipping, tripping and stumbling with subsequent striking against other object, initial encounter; Y93.9 Activity, unspecified; Y92.9 Unspecified place or not applicable; S16.1XXA Strain of muscle, fascia and tendon at neck level, initial encounter; M54.2 Cervicalgia; Z79.899 Other long term (current) drug therapy; I10 Essential (primary) hypertension; G47.30 Sleep apnea, unspecified
CPT/HCPCS: 12011; 70450; 72125; 73130; 99284; J1885

== ENCOUNTER 2021-07-27 18:24 | Emergency (ER) | payer MEDICARE ==
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
[2021-07-27] MEDS ORDERED: solu-MEDROL 125 MG, Sterile H2O 10 ml 2 ML IV ONE ×2 (18:27)
[2021-07-27] MEDS ORDERED: solu-MEDROL ONE (18:55)
[2021-07-27] MEDS ORDERED: Sterile H2O 10 ml IJ ONE (18:55)
[2021-07-27 19:37] LABS: Absolute Neutrophil Ct (ANC) 3.53 (1.4-6.9); BASOPHIL % 0.2 % (0.0-0.4); Basophil (Absolute #) 0.01 (0-0.4); Eosinophil (Absolute #) 0.28 (0-0.5); Hemoglobin 10.6 gm/dl (12.5-18.0); Lymphocyte (Absolute #) 1.13 (1.0-4.6); Lymphocytes % 20.3 % (24.0-44.0); Mean Cell Volume 87.5 fl (78-100); Mean Corpuscular Hemoglobin 28.1 pg (26-32); Mean Corpuscular Hgb Concent. 32.1 g/dl (32-36); Mean Platelet Volume 10.9 fl (7.5-11.0); Monocyte (Absolute #) 0.61 (0.0-1.3); Neutrophil % 63.5 % (36.0-66.0); Platelet Count 157 K/mm3 (150-450); Red Blood Count 3.77 M/mm3 (4.1-5.6); Red Cell Distribution Width 15.3 % (11.5-14.0); White Blood Count 5.6 K/mm3 (4.0-10.5)
[2021-07-27 19:48] VITALS: O2SAT 96
[2021-07-27 19:50] LABS: ALKALINE PHOSPHATASE 173 U/L (38-126); ANION GAP 12.1 MEQ/L (5-15); BLOOD UREA NITROGEN 14 mg/dL (9-20); CHLORIDE 99 mmol/L (98-107); Calcium 8.8 mg/dL (8.4-10.2); Carbon Dioxide 26 mmol/L (22-30); Creatinine 1 0.95 mg/dL (0.66-1.25); EST GLOMERULAR FILTRATION RATE > 60.0 ML/MIN; Glucose 88 mg/dL (74-106); Potassium 4.1 mmol/L (3.5-5.1); SGOT/AST 128 U/L (17-59); SGPT/ALT 60 U/L (0-50); SODIUM 133 mmol/L (137-145); Total Protein 7.9 g/dL (6.3-8.2)
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
[2021-07-27 21:28] VITALS: BP 146/65; PULSE 74
== END 2021-07-27 21:39 | disposition home or self-care (01) ==
LOC: ED 18:24
DX: R05 Cough (principal); R06.02 Shortness of breath; T65.891A Toxic effect of other specified substances, accidental (unintentional), initial encounter
CPT/HCPCS: 36000; 36415; 71045; 80053; 84484; 85025; 93005; 94760; 96374; 99284; J1642; J2930

== ENCOUNTER 2023-01-20 13:01 | Day surgery (SDC) | payer MEDICARE ==
--- NOTE | 2023-01-20 09:48 | HP ---
DATE OF SURGERY: 01/20/2023 HISTORY OF PRESENT ILLNESS: The patient is a 67-year-old with history of persistent vomiting and coughing in the morning. No blood. Family history negative for esophageal cancer. I feel he is in need of upper endoscopy. Another specialist wants him evaluated for possible cirrhosis, according to the patient, due to history of alcohol abuse 20 years ago. PAST MEDICAL HISTORY: Hypertension. Gallbladder disease. Gastroesophageal reflux disease. Chronic obstructive pulmonary disease. Sleep apnea. Chemically induced hepatitis. Cirrhosis. Degenerative disc disease. Osteoarthritis. Bipolar disorder. Hyperlipidemia. PAST SURGICAL HISTORY: Appendectomy. Back surgery. Left knee. MEDICATIONS: Zolpidem, torsemide, tiotropium, simvastatin, Ramipril, clonidine, atenolol, albuterol sulfate. ALLERGIES: KEFLEX. NUBAIN. PENICILLIN. ASPIRIN. HALOTHANE. TORADOL. NEURONTIN. FAMILY HISTORY: Alzheimer's. SOCIAL HISTORY: No smoking. Occasional alcohol, alcohol abuse 20 years ago. REVIEW OF SYSTEMS: Fourteen systems reviewed. No chest pain or palpitations. Other systems negative or noncontributory as above and per preadmission questionnaire. PHYSICAL EXAMINATION: Height 6' 2". BMI 32.74. GENERAL: No acute distress. HEENT: Sclerae nonicteric. NECK: No JVD. CHEST: Equal excursion, nonlabored breathing. CVS: Regular rate and rhythm. ABDOMEN: Soft. EXTREMITIES: No significant edema. NEURO: Alert, oriented, moving extremities symmetrically. PSYCH: Appropriate mood and affect. SKIN: Dry. IMPRESSION: History of vomiting. He is in need of upper endoscopy to evaluate for peptic ulcer disease, gastritis, esophagitis or other etiology. With his history of cirrhosis, he needs evaluation with ERCP. General risk of bleeding or infection, risk of bowel injury or perforation possibly requiring further procedure, risk of missed or nondiagnosis or incomplete exam, possibly requiring barium swallow, other studies or procedures. General risk of anesthesia or sedation. He understands. Will proceed with outpatient EGD, possible biopsy. He understands that I do not do variceal banding. If he needs this will need to follow up with software technician. He understands and agrees to the planned procedure, will proceed with EGD, possible biopsy as an outpatient.
[2023-01-20] MEDS ORDERED: Lactated Ringers 1,000 ML IV SCH (13:30)
[2023-01-20] MEDS ORDERED: Lactated Ringers 1,000 ML IV ONE (13:36)
[2023-01-20] MEDS ORDERED: DIPRIVAN 200 MG/20 ML IV ONE (14:04)
[2023-01-20] MEDS ORDERED: Xylocaine-Mpf 2% 5 Ml Vial ONE (14:04)
[2023-01-20] MEDS ORDERED: Sodium Chloride 0.9% 10 ML FLUSH Syringe PORT FLUSH PRN (15:12)
[2023-01-20 15:36] VITALS: O2SAT 97
[2023-01-20 15:39] VITALS: BP 140/76; PULSE 54
--- NOTE | 2023-01-21 08:17 | OP ---
SURGERY DATE/TIME: 01/20/2023 1405 PREOPERATIVE DIAGNOSIS: History of vomiting, history of some liver disease, need for upper endoscopy to evaluate for gastritis, peptic ulcer disease, esophagitis or other etiology. POSTOPERATIVE DIAGNOSIS: Mild gastritis. PROCEDURES: 1) EGD with cold biopsy of small bowel to evaluate for celiac sprue. 2) Cold biopsy of the antrum to evaluate for Helicobacter pylori. 3) Cold biopsy of gastric body inflammation. 4) Cold biopsy gastric polyp. 5) Cold biopsy mid esophagus to evaluate for eosinophilic esophagitis. SURGEON: Dr. Matt Mejia. ANESTHESIA: MAC. ESTIMATED BLOOD LOSS: Minimal. INDICATIONS: As noted above. Risks and benefits explained in detail and not limited to and consent obtained. DESCRIPTION OF PROCEDURE AND FINDINGS: The patient is taken to the endoscopy room. MAC anesthesia introduced. After official time out and no disagreement with planned procedure, bite block positioned. Video gastroscope easily passed down the esophagus through the patent pylorus to the third portion of the duodenum. Third, second and first portion of the duodenum were unremarkable but given his symptom complaints of vomiting cold biopsy taken to evaluate for Helicobacter pylori. Good hemostasis noted. Scope pulled back in the stomach. He had some mild gastric erythema. Cold biopsy taken to evaluate for gastritis and Helicobacter pylori. On retroflex, the gastroesophageal junction snug against the scope. No signs of any significant hiatal hernia. The scope is straightened and pulled back. He had a little bit of edema and inflammation of the body of the stomach cold biopsy taken of this as well for evaluation as well as small, little fundal gland polyp cold biopsy taken to rule out other causes. Good hemostasis noted. Scope pulled back to gastroesophageal junction. Z-line was crisp. No signs of any erosions or significant esophagitis there in the distal esophagus. Because of his vomiting the scope pulled back to mid esophagus and random cold biopsies taken in mid esophagus to evaluate for eosinophilic esophagitis. The scope is withdrawn. The patient tolerated the procedure well. There were no immediate complications. There is no family to discuss the findings with in the waiting area.
== END 2023-01-20 15:35 | disposition home or self-care (01) ==
LOC: SDC 13:01
PROVIDERS: ATTEND Surgery
DX: K29.70 Gastritis, unspecified, without bleeding (principal); R11.10 Vomiting, unspecified; Z87.19 Personal history of other diseases of the digestive system
CPT/HCPCS: J1642; J2704

== ENCOUNTER 2024-02-05 12:43 | Emergency (ER) | payer MEDICARE ==
[2024-02-05 13:11] VITALS: PULSE 107; TEMP 97.6; O2SAT 100
[2024-02-05 13:56] LABS: Absolute Neutrophil Ct (ANC) 1.64 x10^3/uL (1.4-6.9); BASOPHIL % 1.1 % (0.0-0.4); Basophil (Absolute #) 0.03 x10^3/uL (0-0.4); Eosinophil % 4.4 % (0.00-5.0); Eosinophil (Absolute #) 0.12 x10^3/uL (0-0.5); Hematocrit 25.8 % (42-50); Hemoglobin 8.4 g/dL (12.5-18.0); IMMATURE GRAN # 0.01 x10^3u/L (0.00-0.03); IMMATURE GRAN % 0.4 % (0.00-0.4); Lymphocytes % 25.6 % (24.0-44.0); Mean Cell Volume 91.5 fL (78-100); Mean Corpuscular Hemoglobin 29.8 pg (26-32); Mean Corpuscular Hgb Concent. 32.6 g/dL (32-36); Mean Platelet Volume 10.9 fL (7.5-11.0); Monocyte (Absolute #) 0.23 x10^3/uL (0.0-1.3); Monocytes % 8.4 % (0.0-12.0); Neutrophil % 60.1 % (36.0-66.0); Platelet Count 90 x10^3/uL (150-450); Red Blood Count 2.82 x10^6/uL (4.1-5.6); Red Cell Distribution Width 17.4 % (11.5-14.0); White Blood Count 2.7 x10^3/uL (4.0-10.5)
[2024-02-05 14:06] LABS: ANION GAP 10.1 MEQ/L (5-15); BILIRUBIN,TOTAL 0.8 mg/dL (0.2-1.3); Calcium 8.1 mg/dL (8.4-10.2); Creatinine 1 1.07 mg/dL (0.66-1.25); EST GLOMERULAR FILTRATION RATE 76.1 ML/MIN; Potassium 3.4 mmol/L (3.5-5.1); Total Protein 8.2 g/dL (6.3-8.2)
--- NOTE | 2024-02-05 14:10 | XRAY ---
Indication: Swelling. Two-dimensional sonogram and color Doppler imaging major venous vessels right leg performed. Comparison: June 06, 2023 No thrombus seen in the examined deep venous vessels right leg including greater saphenous vein. Veins demonstrate normal compressibility. Venous waveforms are normal with and without augmentation. Impression: Right leg again negative for DVT.
[2024-02-05] MEDS: VANCOMYCIN 2 GRAM/400 ML BAG 2 GM/400 ML PIGGYBACK IV ONE (14:55)
[2024-02-05] MEDS ORDERED: FLAGYL 500 MG IVPB 500 MG/100 ML BAG IV ONE (14:58)
[2024-02-05] MEDS ORDERED: Lasix 40 MG/4 ML ONE (14:59)
[2024-02-05] MEDS ORDERED: Zofran 4 MG/2 ML VIAL ONE (15:03)
[2024-02-05] MEDS ORDERED: MORPHINE SULFATE 4 MG INJ ONE (15:03)
[2024-02-05] MEDS: FLAGYL 500 MG IVPB 500 MG/100 ML BAG IV STA (15:07)
[2024-02-05] MEDS: Zofran 4 MG/2 ML VIAL IV ONE (15:08)
[2024-02-05] MEDS: Lasix 40 MG/4 ML IV ONE (15:08)
[2024-02-05] MEDS: MORPHINE SULFATE 4 MG INJ IV ONE (15:08)
[2024-02-05 15:11] LABS: Slide Review 1 YES
--- NOTE | 2024-02-05 15:41 | XRAY ---
Indication: Edema. CHF. Comparison: July 27, 2021 Portable chest remains hyperinflated with chronic lung markings. No focal infiltrate, consolidation, or large effusion. Heart not enlarged again with left Port-A-Cath. Bony thorax intact again with osteopenia and mild degenerative changes. New finding healing left lateral 9/10 rib fractures. Impression: Nonacute chest with chronic features.
[2024-02-05] MEDS: AZACTAM 1 GM*** 2 GM in Sodium Chloride 0.9% 100 ML IV ONE (15:50)
[2024-02-05 16:30] LABS: Appearance Clear (Clear); Bacteria None Seen /HPF (None Seen); Bilirubin Negative (Negative); Blood Negative (Negative); Epithelial Cells None Seen /HPF (None Seen); Glucose, Urine Negative (Negative); Hyaline Casts NONE SEEN /LPF (0-2); Ketones Negative (Negative); Leukocyte Esterase Negative (Negative); Nitrite Negative (Negative); Protein,Urine Dip Negative (Negative); RBC 0-2 /HPF (0-5); Urobilinogen 0.2 mg/dL (0.2); WBC 0-2 /HPF (0-5)
[2024-02-05] MEDS: VANCOMYCIN 1.5 GRAM/300 ML BAG 1.5 GM/300 ML PIGGYBACK IV ONE (16:30)
[2024-02-05 16:40] LABS: ADD URINE CULTURE? NO (NO)
--- NOTE | 2024-02-05 16:44 | ERPHSYRPT ---
- History of Present Illness Time Seen by Provider: 02/05/24 12:49 Source: patient Exam Limitations: no limitations Patient Subjective Stated Complaint: Pt was to go to the infusion center for vancomycin for mrsa on his back, two days ago his right leg began swelling and i t continues to swell Triage Nursing Assessment: Pt was brought to the ER by a family friend, hypertensive, tachycardic, rates leg/hip/back pain as 07/13, pts right leg is swollen, red, and tender to touch from the hip all the way down, pulses normal, skin is sallow in the face and arms and torso but is reddened on his legs, hx of hepatitis no difficulty breathing Physician History: 68-year-old male with multiple medical problems including CLD, recent psoas abscess needing drainage and currently on vancomycin as directed by infectious disease and [facility] presented in the ER with complaint of right lower extremity swelling and redness which started 2 days ago with progressive worsening and involves the whole right lower leg. Patient reports tightening, moderate pain especially in the thigh area but denies any fever or chills. Baliey ent reports difficulty ambulation because of the pain. Denies any chest pain palpitations or shortness of breath. Patient does have mild swelling to left lower extremity which according to him is chronic. Allergies/Adverse Reactions: cephalexin monohydrate [From Keflex] Allergy (Severe, Verified 02/05/24 13:11) Swelling nalbuphine HCl [From Nubain] Allergy (Severe, Verified 02/05/24 13:11) Swelling states swell, increased blood pressure Penicillins Allergy (Intermediate, Verified 02/05/24 13:11) Swelling aspirin Allergy (Mild, Verified 02/05/24 13:11) Hives gabapentin [From Neurontin] Allergy (Mild, Verified 02/05/24 13:11) Hives ketorolac [From Toradol] Allergy (Verified 02/05/24 13:11) HALOTHANE Allergy (Mild, Uncoded 02/05/24 13:11) Hives varified on 04/17/15 Pt states "gives me medically induced hepatitis B" Home Medications: Omeprazole 20 MG [Prilosec 20 mg] 40 mg PO HS 05/04/16 [History] Simvastatin 40 mg [Zocor 40 mg] 40 mg PO HS 05/04/16 [History] atenoloL [Atenolol] 50 mg PO LUNCH 05/04/16 [History] Ramipril [Altace] 10 mg PO DAILY 12/27/22 [History] Torsemide 20 mg PO BID 12/27/22 [History] Bumetanide 2 mg PO BID 02/05/24 [History] Famotidine 20 mg PO BID 02/05/24 [History] Ferrous Sulfate 325 mg PO BID 02/05/24 [History] Lactulose 30 ml PO TID 02/05/24 [History] Metolazone 2.5 mg [Zaroxolyn 2.5 MG] 2.5 mg PO UD 02/05/24 [History] Potassium Chloride 20 meq PO BID 02/05/24 [History] Sertraline HCl 100 mg PO QPM 02/05/24 [History] Sodium Chloride 1 mg PO BID 02/05/24 [History] Spironolactone 50 mg PO TID 02/05/24 [History] Tiotropium Br/Olodaterol HCl [Stiolto Respimat Inhaler (60)] 2 inh PO DAILY 02/05/24 [History] Hx Tetanus, Diphtheria Vaccination/Date Given: Yes Hx Influenza Vaccination/Date Given: Yes (jul 2017) Hx Pneumococcal Vaccination/Date Given: Yes (jul 2017) Travel Risk - International Travel Have you traveled outside of the country in past 3 weeks: No - Emerging Infectious Disease Are you exhibiting symptoms associated with any current EIDs: No - Review of Systems Constitutional: No Symptoms Eyes: No Symptoms Ears, Nose, & Throat: No Symptoms Respiratory: No Symptoms Cardiac: No Symptoms Genitourinary Symptoms: No Symptoms Musculoskeletal: Arthralgias, Back Pain Skin: Cellulitis, Skin Lesions Neurological: No Symptoms Hematologic/Lymphatic: No Symptoms Immunological/Allergic: No Symptoms - Past Medical History Pertinent Past Medical History: Yes Neurological History: Peripheral Neuropathy ENT History: No Pertinent History Cardiac History: High Cholesterol, Hypertension, Other Respiratory History: COPD, Sleep Apnea Endocrine Medical History: Liver Disease Musculoskeletal History: Degenerative Disk Disease, Osteoarthritis GI Medical History: GERD History: No Pertinent History Psycho-Social History: Bipolar, Depression Male Reproductive Disorders: No Pertinent History Other Medical History: PATIENT REPORTS CIRRHOSIS OF LIVER DUE TO ALCOHOL ABUSE - HAS BEEN SOBER X 23 YEARS - "PROBABLY GOING TO HAVE TO HAVE A LIVER TRANSPLANT" - ON TRANSPLANT LIST. STATES HAS SMALL VALVE IN HEART CAUSING MURMUR. HX OF THROMBOPHLEBITIS RIGHT LOWER LEG SEVERAL YEARS AGO. RECENT DOPPLER NEGATIVE FOR DVT. HX 5 LUMBAR SURGERIES INCLUDING FUSION WITH HARDWARE. CURRENTLY HAS PAIN PUMP FOR CONTINUOUS INFUSION REQUIRING REFILL EVERY 2-3 MONTHS AT PAIN CLINIC IN [place]. PATIENT REPORTS GOOD RELIEF WITH PUMP. REPORTS GETTING CRAMPS IN LEG MORE SINCE PAIN STARTED. DESCRIBES PAIN STARTING IN BUTT CHEEK MAYBE HIGHER AND GOES DOWN TO HIS FEET BUT HAS LIMITED FEELING IN BOTH FEET. abscess - Past Surgical History Past Surgical History: Yes Neuro Surgical History: No Pertinent History Cardiac: Vascular Surgery Respiratory: No Pertinent History Gastrointestinal: Appendectomy Genitourinary: No Pertinent History Musculoskeletal: Orthopedic Surgery Male Surgical History: No Pertinent History Other Surgical History: MULTI BACK SURG, left knee reconstruction. cvl port placement, pain pump Significant Family History: no pertinent family hx - Social History Smoking Status: Never smoker Exposure to second hand smoke: No Alcohol Use: None Drug Use: marijuana Patient Lives Alone: No - Nursing Vital Signs Nursing Vital Signs: Initial Vital Signs Temperature 97.6 F 02/05/24 12:48 Pulse Rate 107 H 02/05/24 12:48 Blood Pressure 163/64 02/05/24 12:48 O2 Sat by Pulse Oximetry 100 02/05/24 12:48 Pain Scale Pain Intensity 9 - Physical Exam General Appearance: no apparent distress Eye Exam: PERRL/EOMI Ears, Nose, Throat Exam: normal ENT inspection Neck Exam: normal inspection, full range of motion Respiratory Exam: normal breath sounds, lungs clear Cardiovascular Exam: normal heart sounds, tachycardia, edema (1+ pitting edema and left lower leg and 2+ on the right) Gastrointestinal/Abdomen Exam: soft, normal bowel sounds, No tenderness Extremity Exam: inflammation, swelling (Feels swelling right lower extremity. Blanchable. Warm, mildly tender. Cap refill less than 3 seconds. Intact movements at knee and ankle.), tenderness Neurologic Exam: alert, oriented x 3, cooperative Skin Exam: rash SpO2 Interpretation: normal SpO2: 100 O2 Delivery: Room Air Ordered Tests: Active Orders 24 hr Category Date Time Status IV Insertion STAT Care 02/05/24 13:24 Completed CHEST 1 VIEW (PORTABLE) Stat Exams 02/05/24 14:24 Completed VENOUS UNILAT/LIMITED EXTREMIT [US] Stat Exams 02/05/24 13:25 Completed BLOOD CULTURE Stat Lab 02/05/24 13:45 Received CBC W DIFF Stat Lab 02/05/24 13:45 Completed CMP Stat Lab 02/05/24 13:45 Completed Lactic Acid Stat Lab 02/05/24 13:45 Completed PROCALCITONIN Stat Lab 02/05/24 13:45 Completed UA W/RFX UR CULTURE Stat Lab 02/05/24 16:05 Completed Medication Summary Discontinued Medications Generic Name Dose Route Start Last Admin Trade Name Ajq PRN Reason Stop Dose Admin Furosemide 40 mg 02/05/24 14:26 02/05/24 15:08 Furosemide 40 Mg/4 Ml Vial IV 02/05/24 14:27 40 mg STAT ONE Administration Furosemide Confirm 02/05/24 14:59 Furosemide 40 Mg/4 Ml Vial Administered 02/05/24 15:00 Dose 40 mg .ROUTE .STK-MED ONE Metronidazole 500 mg in 100 mls @ 200 mls/hr 02/05/24 14:24 02/05/24 15:50 Flagyl 500 Mg Ivpb IV 02/05/24 14:53 Infused STAT STA Infusion Aztreonam 2 gm/ Sodium 100 mls @ 200 mls/hr 02/05/24 14:25 02/05/24 15:50 Chloride IV 02/05/24 14:54 200 mls/hr STAT ONE Administration Vancomycin HCl 2 gm in 400 mls @ 133.333 mls/hr 02/05/24 14:25 02/05/24 14:55 Vancomycin 2 Gram/400 Ml Bag IV 02/05/24 17:24 Not Given STAT ONE Vancomycin HCl 1.5 gm in 300 mls @ 150 mls/hr 02/05/24 14:52 02/05/24 16:30 Vancomycin 1.5 Gram/300 Ml Bag IV 02/05/24 16:51 150 mls/hr ONCE ONE 150 mls/hr Administration Metronidazole Confirm 02/05/24 14:58 Flagyl 500 Mg Ivpb Administered 02/05/24 14:59 Dose 500 mg in 100 mls @ ud IV .STK-MED ONE Morphine Sulfate 4 mg 02/05/24 15:00 02/05/24 15:08 Morphine Sulfate 4 Mg/Ml Injection IV 02/05/24 15:01 4 mg STAT ONE Administration Morphine Sulfate Confirm 02/05/24 15:03 Morphine Sulfate 4 Mg/Ml Injection Administered 02/05/24 15:04 Dose 4 mg .ROUTE .STK-MED ONE Ondansetron HCl 4 mg 02/05/24 15:00 02/05/24 15:08 Ondansetron Hcl 4 Mg/2 Ml Vial IV 02/05/24 15:01 4 mg STAT ONE Administration Ondansetron HCl Confirm 02/05/24 15:03 Ondansetron Hcl 4 Mg/2 Ml Vial Administered 02/05/24 15:04 Dose 4 mg .ROUTE .STK-MED ONE Lab/Rad Data: Laboratory Result Diagrams 02/05/24 13:45 02/05/24 13:45 Laboratory Results 02/05/24 02/05/24 02/05/24 Range/Units Unknown 16:05 13:45 WBC (4.0-10.5) x10^3/uL RBC (4.1-5.6) x10^6/uL Hgb (12.5-18.0) g/dL Hct (42-50) % MCV (78-100) fL MCH (26-32) pg MCHC (32-36) g/dL RDW (11.5-14.0) % Plt Count (150-450) x10^3/uL MPV (7.5-11.0) fL Gran % (36.0-66.0) % Immature Gran % (Auto) (0.00-0.4) % Nucleat RBC Rel Count (0.00-0.1) % Eos # (Auto) (0-0.5) x10^3/uL Immature Gran # (Auto) (0.00-0.03) x10^3u/L Absolute Lymphs (auto) (1.0-4.6) x10^3/uL Absolute Monos (auto) (0.0-1.3) x10^3/uL Absolute Nucleated RBC (0.00-0.01) x10^3u/L Lymphocytes % (24.0-44.0) % Monocytes % (0.0-12.0) % Eosinophils % (0.00-5.0) % Basophils % (0.0-0.4) % Absolute Granulocytes (1.4-6.9) x10^3/uL Basophils # (0-0.4) x10^3/uL Sodium (135-145) mmol/L Potassium (3.5-5.1) mmol/L Chloride (98-107) mmol/L Carbon Dioxide (22-30) mmol/L Anion Gap (5-15) MEQ/L BUN (9-20) mg/dL Creatinine (0.66-1.25) mg/dL Estimated GFR ML/MIN Glucose (74-106) mg/dL Lactic Acid (0.4-2.0) Calcium (8.4-10.2) mg/dL Total Bilirubin (0.2-1.3) mg/dL AST (17-59) U/L ALT (0-50) U/L Alkaline Phosphatase (38-126) U/L Serum Total Protein (6.3-8.2) g/dL Albumin (3.5-5.0) g/dL Procalcitonin 0.171 H (0.030-0.080) ng/mL Urine Color Yellow (Yellow) Urine Appearance Clear (Clear) Urine pH 6.0 (4.6-8.0) Ur Specific [place] 1.010 (1.005-1.030) Urine Protein Negative (Negative) Urine Glucose (UA) Negative (Negative) mg/dL Urine Ketones Negative (Negative) Urine Blood Negative (Negative) Urine Nitrite Negative (Negative) Urine Bilirubin Negative (Negative) Urine Urobilinogen 0.2 (0.2) mg/dL Ur Leukocyte Esterase Negative (Negative) U Hyaline Cast (Auto) NONE SEEN (0-2) /LPF Urine Microscopic RBC 0-2 (0-5) /HPF Urine Microscopic WBC 0-2 (0-5) /HPF Ur Epithelial Cells None Seen (None Seen) /HPF Urine Bacteria None Seen (None Seen) /HPF Urine Culture Reflexed NO (NO) Vancomycin Trough 13.08 (10-20) ug/mL Slides for Path Review 02/05/24 02/05/24 02/05/24 Range/Units 13:45 13:45 13:45 WBC 2.7 L (4.0-10.5) x10^3/uL RBC 2.82 L (4.1-5.6) x10^6/uL Hgb 8.4 L (12.5-18.0) g/dL Hct 25.8 L (42-50) % MCV 91.5 (78-100) fL MCH 29.8 (26-32) pg MCHC 32.6 (32-36) g/dL RDW 17.4 H (11.5-14.0) % Plt Count 90 L (150-450) x10^3/uL MPV 10.9 (7.5-11.0) fL Gran % 60.1 (36.0-66.0) % Immature Gran % (Auto) 0.4 (0.00-0.4) % Nucleat RBC Rel Count 0.0 (0.00-0.1) % Eos # (Auto) 0.12 (0-0.5) x10^3/uL Immature Gran # (Auto) 0.01 (0.00-0.03) x10^3u/L Absolute Lymphs (auto) 0.70 L (1.0-4.6) x10^3/uL Absolute Monos (auto) 0.23 (0.0-1.3) x10^3/uL Absolute Nucleated RBC 0.00 (0.00-0.01) x10^3u/L Lymphocytes % 25.6 (24.0-44.0) % Monocytes % 8.4 (0.0-12.0) % Eosinophils % 4.4 (0.00-5.0) % Basophils % 1.1 (0.0-0.4) % Absolute Granulocytes 1.64 (1.4-6.9) x10^3/uL Basophils # 0.03 (0-0.4) x10^3/uL Sodium 137 (135-145) mmol/L Potassium 3.4 L (3.5-5.1) mmol/L Chloride 108 H (98-107) mmol/L Carbon Dioxide 22 (22-30) mmol/L Anion Gap 10.1 (5-15) MEQ/L BUN 25 H (9-20) mg/dL Creatinine 1.07 (0.66-1.25) mg/dL Estimated GFR 76.1 ML/MIN Glucose 123 H (74-106) mg/dL Lactic Acid 1.1 (0.4-2.0) Calcium 8.1 L D (8.4-10.2) mg/dL Total Bilirubin 0.80 (0.2-1.3) mg/dL AST 82 H (17-59) U/L ALT 38 (0-50) U/L Alkaline Phosphatase 207 H (38-126) U/L Serum Total Protein 8.2 (6.3-8.2) g/dL Albumin 3.0 L (3.5-5.0) g/dL Procalcitonin (0.030-0.080) ng/mL Urine Color (Yellow) Urine Appearance (Clear) Urine pH (4.6-8.0) Ur Specific [place] (1.005-1.030) Urine Protein (Negative) Urine Glucose (UA) (Negative) mg/dL Urine Ketones (Negative) Urine Blood (Negative) Urine Nitrite (Negative) Urine Bilirubin (Negative) Urine Urobilinogen (0.2) mg/dL Ur Leukocyte Esterase (Negative) U Hyaline Cast (Auto) (0-2) /LPF Urine Microscopic RBC (0-5) /HPF Urine Microscopic WBC (0-5) /HPF Ur Epithelial Cells (None Seen) /HPF Urine Bacteria (None Seen) /HPF Urine Culture Reflexed (NO) Vancomycin Trough (10-20) ug/mL Slides for Path Review YES - Progress Progress: unchanged Progress Note: 02/05/24 16:05 68-year-old with recent psoas abscess currently on vancomycin is evaluated for increasing right lower extremity swelling and redness with pain. Patient has no signs of compartment syndrome. Patient has a white count of 2.7, hemoglobin 8.4 which is around baseline and also platelets of 90 consistent with CLD. Has a elevated procalcitonin, normal lactate. Ultrasound negative for DVT. Chest x-ray negative. I have given him some Lasix as well as patient has bilateral lower extremity swelling and has some element of fluid overload. He is started on broad-spectrum antibiotics for right lower extremity cellulitis. Patient is already on vancomycin and I have added aztreonam and Flagyl. Discussed with Dr. Johnson hospitalist at [facility], reviewed history, workup, recommended transfer to facility with ID services. I have discussed with hospitalist at [place], reviewed history workup and agreed with transfer. Plan discussed with patient who understand and agrees with it. Discussed with Dr.: Other (Dr. Johnson hospitalist at [facility] and Dr. Ibrahim hospitalist at [facility]) Counseled pt/family regarding: diagnosis, rad results Medical Desision Making - Discussion of managment Care discussed with:: hospitalist Reviewed:: Test results Agreed on:: Treatment plan Will see patient: in hospital - Diagnostic Testing Diagnostic test were ordered, analyzed, and reviewed by me: Yes Radiological Interpretation: Reviewed by me - Risk of complications The pt has a high risk of morbidity or mortality based on: Decision regarding hospitilization or escalation of hosp level of care - Departure Departure Disposition: Transfer Clinical Impression: Cellulitis of right lower extremity Condition: Stable Critical Care Time: No Referrals: HUNG GARNICA MD [Primary Care Provider] - Follow up/PCP as directed
[2024-02-05 18:36] VITALS: BP 151/55
== END 2024-02-05 19:25 | disposition short-term general hospital (02) ==
LOC: ED 12:43
DX: L03.115 Cellulitis of right lower limb (principal); M79.604 Pain in right leg; E78.5 Hyperlipidemia, unspecified; I10 Essential (primary) hypertension; Z79.899 Other long term (current) drug therapy
CPT/HCPCS: 36415; 71045; 80053; 80202; 81001; 83605; 84145; 85025; 87040; 93971; 96365; 96367; 96368; 96374; 96375; 99284; J1940; J2270; J2405; J3370

== ENCOUNTER 2024-02-24 21:53 | Emergency (ER) | payer MEDICARE ==
--- NOTE | 2024-02-24 22:19 | ERPHSYRPT ---
- History of Present Illness Time Seen by Provider: 02/24/24 22:16 Physician History: 68-year-old male presents to our ED for evaluation of abdominal pain and vomiting. Patient has that he has bilateral lower extremity swelling that has been ongoing for approximately 3 months. Patient's primary care doctor is currently working him up. Patient adds that his right lower extremity is little more painful than his left. Patient feels this is a new finding. Symptoms are mild to moderate in intensity. No specific worsening improving factors. No associated chest pain or shortness of breath. Patient voices no other complaints concerns at this time. Portions of this note were created with voice recognition technology. There may be grammatical, spelling, punctuation or sound alike errors Timing/Duration: today Severity: moderate Modifying Factors: Improves With: nothing Associated Symptoms: denies symptoms Allergies/Adverse Reactions: cephalexin monohydrate [From Keflex] Allergy (Severe, Verified 02/05/24 13:11) Swelling nalbuphine HCl [From Nubain] Allergy (Severe, Verified 02/05/24 13:11) Swelling states swell, increased blood pressure Penicillins Allergy (Intermediate, Verified 02/05/24 13:11) Swelling aspirin Allergy (Mild, Verified 02/05/24 13:11) Hives gabapentin [From Neurontin] Allergy (Mild, Verified 02/05/24 13:11) Hives ketorolac [From Toradol] Allergy (Verified 02/05/24 13:11) HALOTHANE Allergy (Mild, Uncoded 02/05/24 13:11) Hives varified on 04/17/15 Pt states "gives me medically induced hepatitis B" Home Medications: Omeprazole 20 MG [Prilosec 20 mg] 40 mg PO HS 05/04/16 [History] Simvastatin 40 mg [Zocor 40 mg] 40 mg PO HS 05/04/16 [History] atenoloL [Atenolol] 50 mg PO LUNCH 05/04/16 [History] Ramipril [Altace] 10 mg PO DAILY 12/27/22 [History] Torsemide 20 mg PO BID 12/27/22 [History] Bumetanide 2 mg PO BID 02/05/24 [History] Famotidine 20 mg PO BID 02/05/24 [History] Ferrous Sulfate 325 mg PO BID 02/05/24 [History] Lactulose 30 ml PO TID 02/05/24 [History] Metolazone 2.5 mg [Zaroxolyn 2.5 MG] 2.5 mg PO UD 02/05/24 [History] Potassium Chloride 20 meq PO BID 02/05/24 [History] Sertraline HCl 100 mg PO QPM 02/05/24 [History] Sodium Chloride 1 mg PO BID 02/05/24 [History] Spironolactone 50 mg PO TID 02/05/24 [History] Tiotropium Br/Olodaterol HCl [Stiolto Respimat Inhaler (60)] 2 inh PO DAILY 02/05/24 [History] Hx Tetanus, Diphtheria Vaccination/Date Given: Yes Hx Influenza Vaccination/Date Given: Yes (jul 2017) Hx Pneumococcal Vaccination/Date Given: Yes (jul 2017) Travel Risk - Emerging Infectious Disease Are you exhibiting symptoms associated with any current EIDs: No - Review of Systems Constitutional: No Symptoms, No Fever, No Chills Eyes: No Symptoms Ears, Nose, & Throat: No Symptoms Respiratory: No Symptoms, No Cough, No Dyspnea Cardiac: No Symptoms, No Chest Pain, No Edema, No Syncope Abdominal/Gastrointestinal: No Symptoms, No Abdominal Pain, No Nausea, No Vomit ing, No Diarrhea Genitourinary Symptoms: No Symptoms, No Dysuria Musculoskeletal: No Symptoms, No Back Pain, No Neck Pain Skin: No Symptoms, No Rash Neurological: No Symptoms, No Dizziness, No Focal Weakness, No Sensory Changes Psychological: No Symptoms Endocrine: No Symptoms Hematologic/Lymphatic: No Symptoms Immunological/Allergic: No Symptoms All Other Systems: Reviewed and Negative - Past Medical History Pertinent Past Medical History: Yes Neurological History: Peripheral Neuropathy ENT History: No Pertinent History Cardiac History: High Cholesterol, Hypertension, Other Respiratory History: COPD, Sleep Apnea Endocrine Medical History: Liver Disease Musculoskeletal History: Degenerative Disk Disease, Osteoarthritis GI Medical History: GERD History: No Pertinent History Psycho-Social History: Bipolar, Depression Male Reproductive Disorders: No Pertinent History Other Medical History: PATIENT REPORTS CIRRHOSIS OF LIVER DUE TO ALCOHOL ABUSE - HAS BEEN SOBER X 23 YEARS - "PROBABLY GOING TO HAVE TO HAVE A LIVER TRANSPLANT" - ON TRANSPLANT LIST. STATES HAS SMALL VALVE IN HEART CAUSING MURMUR. HX OF THROMBOPHLEBITIS RIGHT LOWER LEG SEVERAL YEARS AGO. RECENT DOPPLER NEGATIVE FOR DVT. HX 5 LUMBAR SURGERIES INCLUDING FUSION WITH HARDWARE. CURRENTLY HAS PAIN PUMP FOR CONTINUOUS INFUSION REQUIRING REFILL EVERY 2-3 MONTHS AT PAIN CLINIC IN [place]. PATIENT REPORTS GOOD RELIEF WITH PUMP. REPORTS GETTING CRAMPS IN LEG MORE SINCE PAIN STARTED. DESCRIBES PAIN STARTING IN BUTT CHEEK MAYBE HIGHER AND GOES DOWN TO HIS FEET BUT HAS LIMITED FEELING IN BOTH FEET. abscess - Past Surgical History Past Surgical History: Yes Neuro Surgical History: No Pertinent History Cardiac: Vascular Surgery Respiratory: No Pertinent History Gastrointestinal: Appendectomy Genitourinary: No Pertinent History Musculoskeletal: Orthopedic Surgery Male Surgical History: No Pertinent History Other Surgical History: MULTI BACK SURG, left knee reconstruction. cvl port placement, pain pump Significant Family History: no pertinent family hx - Social History Smoking Status: Never smoker Exposure to second hand smoke: No Alcohol Use: None Drug Use: marijuana Patient Lives Alone: No - Nursing Vital Signs Nursing Vital Signs: Initial Vital Signs Temperature 98.3 F 02/24/24 22:12 Pulse Rate 82 02/24/24 22:12 Respiratory Rate 24 02/24/24 22:12 Blood Pressure 138/70 02/24/24 22:12 O2 Sat by Pulse Oximetry 100 02/24/24 22:12 Pain Scale Pain Intensity 5 - Physical Exam General Appearance: no apparent distress, alert Eye Exam: PERRL/EOMI, eyes nml inspection Ears, Nose, Throat Exam: normal ENT inspection, TMs normal, pharynx normal, moist mucous membranes Neck Exam: normal inspection, non-tender, supple, full range of motion Respiratory Exam: normal breath sounds, lungs clear, airway intact, No respiratory distress Cardiovascular Exam: regular rate/rhythm, normal heart sounds, normal peripheral pulses Gastrointestinal/Abdomen Exam: soft, normal bowel sounds, No tenderness, No mass Back Exam: normal inspection, normal range of motion, No CVA tenderness, No vertebral tenderness Extremity Exam: normal inspection, normal range of motion, pelvis stable Neurologic Exam: alert, oriented x 3, cooperative, normal mood/affect, nml cerebellar function, nml station & gait, sensation nml, No motor deficits Skin Exam: normal color, warm, dry, No rash Lymphatic Exam: No adenopathy SpO2 Interpretation: normal SpO2: 100 O2 Delivery: Room Air - Course Nursing assessment & vital signs reviewed: Yes Ordered Tests: Active Orders 24 hr Category Date Time Status Pack Press Operator STAT Care 02/24/24 22:15 Active IV Insertion STAT Care 02/24/24 22:15 Active Pulse Oximetry (ED) STAT Care 02/24/24 22:15 Active ABDOMEN AND PELVIS W/0 CONTRAS [CT] Stat Exams 02/24/24 22:20 Completed CBC W DIFF Stat Lab 02/24/24 23:10 Completed CMP Stat Lab 02/24/24 23:10 Completed TROPONIN Q4H Lab 02/24/24 23:10 Completed TROPONIN Q4H Lab 02/25/24 02:07 Completed TROPONIN Q4H Lab 02/25/24 06:15 Ordered UA W/RFX UR CULTURE Stat Lab 02/25/24 01:09 Completed Medication Summary Discontinued Medications Generic Name Dose Route Start Last Admin Trade Name Freq PRN Reason Stop Dose Admin Sodium Chloride 1,000 mls @ 999 mls/hr 02/25/24 00:25 02/25/24 00:29 Sodium Chloride 0.9% 1000 Ml IV 02/25/24 01:25 999 mls/hr .Q1H1M STA Administration Sodium Chloride Confirm 02/25/24 00:27 Sodium Chloride 0.9% 1000 Ml Administered 02/25/24 00:28 Dose 1,000 mls @ ud .ROUTE .STK-MED ONE Sodium Chloride Confirm 02/25/24 03:49 Sodium Chloride 0.9% 1000 Ml Administered 02/25/24 03:50 Dose 1,000 mls @ ud .ROUTE .STK-MED ONE Morphine Sulfate 4 mg 02/25/24 00:34 02/25/24 00:41 Morphine Sulfate 4 Mg/Ml Injection IV 02/25/24 00:35 4 mg STAT ONE Administration Morphine Sulfate Confirm 02/25/24 00:36 Morphine Sulfate 4 Mg/Ml Injection Administered 02/25/24 00:37 Dose 4 mg .ROUTE .STK-MED ONE Lab/Rad Data: Laboratory Result Diagrams 02/24/24 23:10 02/24/24 23:10 Laboratory Results 02/25/24 02/25/24 02/24/24 Range/Units 02:07 01:09 23:10 WBC (4.0-10.5) x10^3/uL RBC (4.1-5.6) x10^6/uL Hgb (12.5-18.0) g/dL Hct (42-50) % MCV (78-100) fL MCH (26-32) pg MCHC (32-36) g/dL RDW (11.5-14.0) % Plt Count (150-450) x10^3/uL MPV (7.5-11.0) fL Gran % (36.0-66.0) % Immature Gran % (Auto) (0.00-0.4) % Nucleat RBC Rel Count (0.00-0.1) % Eos # (Auto) (0-0.5) x10^3/uL Immature Gran # (Auto) (0.00-0.03) x10^3u/L Absolute Lymphs (auto) (1.0-4.6) x10^3/uL Absolute Monos (auto) (0.0-1.3) x10^3/uL Absolute Nucleated RBC (0.00-0.01) x10^3u/L Lymphocytes % (24.0-44.0) % Monocytes % (0.0-12.0) % Eosinophils % (0.00-5.0) % Basophils % (0.0-0.4) % Absolute Granulocytes (1.4-6.9) x10^3/uL Basophils # (0-0.4) x10^3/uL Sodium (135-145) mmol/L Potassium (3.5-5.1) mmol/L Chloride (98-107) mmol/L Carbon Dioxide (22-30) mmol/L Anion Gap (5-15) MEQ/L BUN (9-20) mg/dL Creatinine (0.66-1.25) mg/dL Estimated GFR ML/MIN Glucose (74-106) mg/dL Calcium (8.4-10.2) mg/dL Total Bilirubin (0.2-1.3) mg/dL AST (17-59) U/L ALT (0-50) U/L Alkaline Phosphatase (38-126) U/L Troponin I 0.033 (0.000-0.033) ng/mL Serum Total Protein (6.3-8.2) g/dL Albumin (3.5-5.0) g/dL Urine Color Yellow (Yellow) Urine Appearance Clear (Clear) Urine pH 6.0 (4.6-8.0) Ur Specific Sanger 1.020 (1.005-1.030) Urine Protein Negative (Negative) Urine Glucose (UA) Negative (Negative) mg/dL Urine Ketones Negative (Negative) Urine Blood Negative (Negative) Urine Nitrite Negative (Negative) Urine Bilirubin Negative (Negative) Urine Urobilinogen 1.0 A (0.2) mg/dL Ur Leukocyte Esterase Negative (Negative) U Hyaline Cast (Auto) NONE SEEN (0-2) /LPF Urine Microscopic RBC 0-2 (0-5) /HPF Urine Microscopic WBC 0-2 (0-5) /HPF Ur Epithelial Cells None Seen (None Seen) /HPF Urine Bacteria None Seen (None Seen) /HPF Urine Culture Reflexed NO (NO) Slides for Path Review ABO Group Rh Factor Antibody Screen (NEGATIVE) Crossmatch COMPATIBLE (COMPATIBLE) 02/24/24 02/24/24 02/24/24 Range/Units 23:10 23:10 23:10 WBC (4.0-10.5) x10^3/uL RBC (4.1-5.6) x10^6/uL Hgb (12.5-18.0) g/dL Hct (42-50) % MCV (78-100) fL MCH (26-32) pg MCHC (32-36) g/dL RDW (11.5-14.0) % Plt Count (150-450) x10^3/uL MPV (7.5-11.0) fL Gran % (36.0-66.0) % Immature Gran % (Auto) (0.00-0.4) % Nucleat RBC Rel Count (0.00-0.1) % Eos # (Auto) (0-0.5) x10^3/uL Immature Gran # (Auto) (0.00-0.03) x10^3u/L Absolute Lymphs (auto) (1.0-4.6) x10^3/uL Absolute Monos (auto) (0.0-1.3) x10^3/uL Absolute Nucleated RBC (0.00-0.01) x10^3u/L Lymphocytes % (24.0-44.0) % Monocytes % (0.0-12.0) % Eosinophils % (0.00-5.0) % Basophils % (0.0-0.4) % Absolute Granulocytes (1.4-6.9) x10^3/uL Basophils # (0-0.4) x10^3/uL Sodium 134 L (135-145) mmol/L Potassium 3.5 (3.5-5.1) mmol/L Chloride 108 H (98-107) mmol/L Carbon Dioxide 19 L (22-30) mmol/L Anion Gap 11.4 (5-15) MEQ/L BUN 29 H (9-20) mg/dL Creatinine 1.31 H (0.66-1.25) mg/dL Estimated GFR 59.7 ML/MIN Glucose 125 H (74-106) mg/dL Calcium 7.9 L (8.4-10.2) mg/dL Total Bilirubin 1.10 (0.2-1.3) mg/dL AST 68 H (17-59) U/L ALT 31 (0-50) U/L Alkaline Phosphatase 226 H (38-126) U/L Troponin I 0.042 H* (0.000-0.033) ng/mL Serum Total Protein 7.3 (6.3-8.2) g/dL Albumin 2.7 L (3.5-5.0) g/dL Urine Color (Yellow) Urine Appearance (Clear) Urine pH (4.6-8.0) Ur Specific Sanger (1.005-1.030) Urine Protein (Negative) Urine Glucose (UA) (Negative) mg/dL Urine Ketones (Negative) Urine Blood (Negative) Urine Nitrite (Negative) Urine Bilirubin (Negative) Urine Urobilinogen (0.2) mg/dL Ur Leukocyte Esterase (Negative) U Hyaline Cast (Auto) (0-2) /LPF Urine Microscopic RBC (0-5) /HPF Urine Microscopic WBC (0-5) /HPF Ur Epithelial Cells (None Seen) /HPF Urine Bacteria (None Seen) /HPF Urine Culture Reflexed (NO) Slides for Path Review ABO Group A Rh Factor POSITIVE Antibody Screen NEGATIVE (NEGATIVE) Crossmatch COMPATIBLE COMPATIBLE (COMPATIBLE) 02/24/24 Range/Units 23:10 WBC 3.8 L (4.0-10.5) x10^3/uL RBC 1.80 L (4.1-5.6) x10^6/uL Hgb 5.6 L* (12.5-18.0) g/dL Hct 16.8 L (42-50) % MCV 93.3 (78-100) fL MCH 31.1 (26-32) pg MCHC 33.3 (32-36) g/dL RDW 17.3 H (11.5-14.0) % Plt Count 133 L (150-450) x10^3/uL MPV 10.5 (7.5-11.0) fL Gran % 37.0 (36.0-66.0) % Immature Gran % (Auto) 0.0 (0.00-0.4) % Nucleat RBC Rel Count 0.0 (0.00-0.1) % Eos # (Auto) 0.10 (0-0.5) x10^3/uL Immature Gran # (Auto) 0.00 (0.00-0.03) x10^3u/L Absolute Lymphs (auto) 1.86 (1.0-4.6) x10^3/uL Absolute Monos (auto) 0.42 (0.0-1.3) x10^3/uL Absolute Nucleated RBC 0.00 (0.00-0.01) x10^3u/L Lymphocytes % 48.6 H (24.0-44.0) % Monocytes % 11.0 (0.0-12.0) % Eosinophils % 2.6 (0.00-5.0) % Basophils % 0.8 (0.0-0.4) % Absolute Granulocytes 1.42 (1.4-6.9) x10^3/uL Basophils # 0.03 (0-0.4) x10^3/uL Sodium (135-145) mmol/L Potassium (3.5-5.1) mmol/L Chloride (98-107) mmol/L Carbon Dioxide (22-30) mmol/L Anion Gap (5-15) MEQ/L BUN (9-20) mg/dL Creatinine (0.66-1.25) mg/dL Estimated GFR ML/MIN Glucose (74-106) mg/dL Calcium (8.4-10.2) mg/dL Total Bilirubin (0.2-1.3) mg/dL AST (17-59) U/L ALT (0-50) U/L Alkaline Phosphatase (38-126) U/L Troponin I (0.000-0.033) ng/mL Serum Total Protein (6.3-8.2) g/dL Albumin (3.5-5.0) g/dL Urine Color (Yellow) Urine Appearance (Clear) Urine pH (4.6-8.0) Ur Specific Sanger (1.005-1.030) Urine Protein (Negative) Urine Glucose (UA) (Negative) mg/dL Urine Ketones (Negative) Urine Blood (Negative) Urine Nitrite (Negative) Urine Bilirubin (Negative) Urine Urobilinogen (0.2) mg/dL Ur Leukocyte Esterase (Negative) U Hyaline Cast (Auto) (0-2) /LPF Urine Microscopic RBC (0-5) /HPF Urine Microscopic WBC (0-5) /HPF Ur Epithelial Cells (None Seen) /HPF Urine Bacteria (None Seen) /HPF Urine Culture Reflexed (NO) Slides for Path Review YES ABO Group Rh Factor Antibody Screen (NEGATIVE) Crossmatch (COMPATIBLE) - Progress Progress: improved Progress Note: Case discussed with Dr. Quintero hospitalist who feels patient would be better served transfer to higher level of care for hematology evaluation. I discussed the case with Dr. Quintero at 3:08 AM 02/25/24 03:[address] Webb ER physician at [facility] declined transfer. Dr. Webb feels patient would also need GI evaluation and they do not have GI available for consultation Dr. Webb declined transfer at 3:22 AM 02/25/24 03:[address] Paula crandall at [facility] who accepts transfer at 4:37 AM 02/25/24 04:37 68-year-old male presents to the emergency department for evaluation of abdominal pain and vomiting. Physical exam patient has bilateral lower extremity swelling which patient reports to be chronic. Leg swelling has been present for approximately 3 months. Patient also reports outpatient antibiotic infusions. At this point is unclear what is being treated with the outpatient infusions. Workup reveals a profound anemia of 5.6. Normal MCV. Leukopenia and thrombocytopenia observed as well. CT abdomen pelvis revealed bilateral inguinal lymphadenopathy. Patient is afebrile. Vital stable. We attempted to admit patient to our hospital however our hospitalist felt patient requires hig her level of care. Case discussed with Dr. Paula crandall at [facility] who accepts transfer. Plan of care discussed with patient. He agrees to transfer to [facility] for further evaluation and treatment. Complexity of problem addressed is moderate acute complicated No critical care time Complaints of data reviewed and analyzed is extensive. Test ordered/reviewed results analyzed and correlated clinically with history and physical exam. Management discussed with hospitalist at [facility], hospitalist at [facility] and ER physician at [facility]. Risk of complication and a risk of morbidity/mortality patient management is high. Patient requires hospitalization/higher level of care. Vital stable. Time spent admit patient approximately 30 minutes. Plan of care established for shared decision making. No social determinants of health present. Follow-up. Portions of this note were created with voice recognition technology. There may be grammatical, spelling, punctuation or sound alike errors 02/25/24 04:42 Counseled pt/family regarding: lab results, diagnosis - Departure Departure Disposition: Home Clinical Impression: Abdominal pain, Vomiting, Leg swelling, Hypoalbuminemia, Symptomatic anemia, Elevated troponin, Lymphadenopathy, Hepatosplenomegaly, Cholelithiasis, Renal cyst, right, Inguinal lymphadenopathy, Thrombocytopenia, Leukopenia Condition: Stable Critical Care Time: No Referrals: HUNG GARNICA MD [Primary Care Provider] - Follow up/PCP as directed
[2024-02-24 22:28] VITALS: TEMP 98.3
[2024-02-24 23:21] LABS: Absolute Neutrophil Ct (ANC) 1.42 x10^3/uL (1.4-6.9); BASOPHIL % 0.8 % (0.0-0.4); Basophil (Absolute #) 0.03 x10^3/uL (0-0.4); Eosinophil % 2.6 % (0.00-5.0); Hematocrit 16.8 % (42-50); Lymphocyte (Absolute #) 1.86 x10^3/uL (1.0-4.6); Lymphocytes % 48.6 % (24.0-44.0); Mean Cell Volume 93.3 fL (78-100); Mean Corpuscular Hemoglobin 31.1 pg (26-32); Mean Corpuscular Hgb Concent. 33.3 g/dL (32-36); Mean Platelet Volume 10.5 fL (7.5-11.0); Monocyte (Absolute #) 0.42 x10^3/uL (0.0-1.3); Platelet Count 133 x10^3/uL (150-450); Red Cell Distribution Width 17.3 % (11.5-14.0); White Blood Count 3.8 x10^3/uL (4.0-10.5)
[2024-02-24 23:38] LABS: Hemoglobin 5.6 g/dL (12.5-18.0)
[2024-02-24 23:54] LABS: ALBUMIN 2.7 g/dL (3.5-5.0); ANION GAP 11.4 MEQ/L (5-15); BILIRUBIN,TOTAL 1.1 mg/dL (0.2-1.3); Calcium 7.9 mg/dL (8.4-10.2); Creatinine 1 1.31 mg/dL (0.66-1.25); EST GLOMERULAR FILTRATION RATE 59.7 ML/MIN; Potassium 3.5 mmol/L (3.5-5.1); Total Protein 7.3 g/dL (6.3-8.2)
--- NOTE | 2024-02-25 00:01 | XRAY ---
CLINICAL HISTORY: pain COMPARISON: 06/16/2023 TECHNIQUE: Contiguous axial images were obtained from the level of the diaphragm to the pubic symphysis without intravenous or oral contrast. Coronal and sagittal reconstructions were likewise performed and indicated to increase the sensitivity for detecting clinically relevant pathology. CT scan was performed according to ALARA (as low as reasonable achievable). FINDINGS: The visualized lung bases are clear. Evaluation of the abdominal and pelvic visceral organs is limited without intravenous contrast. The unenhanced pancreas, and adrenal glands are grossly unremarkable. The gallbladder is present and shows a intraluminal calculus of size 18 mm. Moderate splenomegaly (18cm) and hepatomegaly(22cm) with jason hepatis collaterals and splenic hilar collaterals corresponding to the cirrhotic changes. The kidneys are normal in size and attenuation without obvious calcification. There is no hydronephrosis or perinephric stranding. The ureters are normal in caliber.Right renal cortical cyst of size 4.2x3.5cm with fine peripheral calcifications. No adenopathy or fluid collections are seen. No evidence of focal or diffuse bowel wall thickening or evidence of bowel obstruction is seen. The appendix is visualized in the right lower quadrant and appears within normal limits. The aorta is normal in caliber. The urinary bladder is normal in contour. Pelvic viscera are grossly unremarkable. No aggressive appearing osseous lesions are identified.Visualized osseous structures show the lumbar stabilisation with metallic rods and transpedicular screws at the L2-L3 level and degenerative changes of the lumbar spine. Small stable collection in right paraspinal muscle at L4-5, posterior to the psoas. A spinal nerve stimulation device is also seen. Bilateral inguinal lymphnodes (right > left). There is mild subcutaneous fat stranding in the right upper thigh. IMPRESSION: 1.Hepatosplenomegaly with jason hepatis and splenic hilar collaterals corresponding to cirrhosis 2.Cholelithiasis 3.Right renal cortical cyst. 4.Bilateral inguinal lymphnodes (right > left). There is mild subcutaneous fat stranding in the right upper thigh. This was not imaged in the previous study. No significant interwal change in the abdominal findings as compared to the previous CT Scan (06/16/2023) Electronically Signed by: Gaurav Galvan MD. (02/24/2024 23:56:36 EDT)
[2024-02-25 00:15] LABS: TROPONIN 0.042 ng/mL (0.000-0.033)
[2024-02-25] MEDS ORDERED: Sodium Chloride 0.9% 1000 ML 0 ML ONE (00:27)
[2024-02-25] MEDS: Sodium Chloride 0.9% 1000 ML 1,000 ML IV STA (00:29)
[2024-02-25] MEDS ORDERED: MORPHINE SULFATE 4 MG INJ ONE (00:36)
[2024-02-25] MEDS: MORPHINE SULFATE 4 MG INJ IV ONE (00:41)
[2024-02-25 01:18] LABS: Appearance Clear (Clear); Bacteria None Seen /HPF (None Seen); Bilirubin Negative (Negative); Blood Negative (Negative); Epithelial Cells None Seen /HPF (None Seen); Glucose, Urine Negative (Negative); Hyaline Casts NONE SEEN /LPF (0-2); Ketones Negative (Negative); Leukocyte Esterase Negative (Negative); Nitrite Negative (Negative); Protein,Urine Dip Negative (Negative); RBC 0-2 /HPF (0-5); WBC 0-2 /HPF (0-5)
[2024-02-25 01:19] LABS: ADD URINE CULTURE? NO (NO)
[2024-02-25 01:28] LABS: ABO TYPING A; Antibody Screen NEGATIVE (NEGATIVE); RH TYPING POSITIVE
[2024-02-25 01:40] LABS: Slide Review 1 YES
[2024-02-25 02:41] LABS: CROSS MATCH (PRBC) COMPATIBLE (COMPATIBLE)
[2024-02-25 02:43] LABS: CROSS MATCH (PRBC) COMPATIBLE (COMPATIBLE)
[2024-02-25 02:44] LABS: CROSS MATCH (PRBC) COMPATIBLE (COMPATIBLE)
[2024-02-25 03:11] VITALS: O2SAT 100
[2024-02-25] MEDS ORDERED: Sodium Chloride 0.9% 1000 ML 1,000 ML ONE (03:49)
[2024-02-25 05:19] VITALS: BP 114/44; PULSE 92; RESP 14
== END 2024-02-25 05:50 | disposition short-term general hospital (02) ==
LOC: ED 21:53
DX: R11.10 Vomiting, unspecified (principal); R10.9 Unspecified abdominal pain; R60.0 Localized edema; I10 Essential (primary) hypertension; E78.5 Hyperlipidemia, unspecified; E88.09 Other disorders of plasma-protein metabolism, not elsewhere classified; D64.9 Anemia, unspecified; R79.89 Other specified abnormal findings of blood chemistry; D72.819 Decreased white blood cell count, unspecified; D69.6 Thrombocytopenia, unspecified; R59.1 Generalized enlarged lymph nodes; R16.2 Hepatomegaly with splenomegaly, not elsewhere classified; K80.20 Calculus of gallbladder without cholecystitis without obstruction; N28.1 Cyst of kidney, acquired; Z79.899 Other long term (current) drug therapy
CPT/HCPCS: 36000; 36415; 74176; 80053; 81001; 84484; 85025; 86850; 86900; 86901; 86922; 93041; 94760; 96374; 99285; J2270